=== PATIENT | male | born 1960 | race Caucasian/White ===

== ENCOUNTER → 2016-09-01 | Outpatient (CLI) | payer MEDICARE ==
[~2016-09-01] MED LIST: AMOX1TAB64 PO; CALC-141 PO; CEFD300C37 PO; EFFEXOR; GABA-827 PO; GABAPENT; GABAPENTIN CREAM; INSU100C SQ-INSULIN; INSU100I18 SQ; INSU100V8 SQ; INSULINS; LACT20SO13 PO; LEDI1TAB PO; LISI-170 PO; LISINOPRIL/HCTZ; MORP15TA PO; OXYC5CAP4 PO; POTA10TA PO; RIFA550T PO; SPIR25TA3 PO; VENL150C PO
== END | disposition home or self-care (01) ==
LOC: WOUND 14:05
PROVIDERS: ATTEND Internal Medicine
DX: E11.621 Type 2 diabetes mellitus with foot ulcer (principal); L97.511 Non-pressure chronic ulcer of other part of right foot limited to breakdown of skin; I10 Essential (primary) hypertension; E66.9 Obesity, unspecified; F17.210 Nicotine dependence, cigarettes, uncomplicated
CPT/HCPCS: 29581; 97597; G0463; WOU0463

== ENCOUNTER → 2016-09-08 | Outpatient (CLI) | payer MEDICARE | END | disposition home or self-care (01) | LOC: WOUND 14:30 | PROVIDERS: ATTEND Internal Medicine | DX: E11.621 Type 2 diabetes mellitus with foot ulcer (principal); L97.511 Non-pressure chronic ulcer of other part of right foot limited to breakdown of skin; I10 Essential (primary) hypertension; E66.9 Obesity, unspecified; E11.40 Type 2 diabetes mellitus with diabetic neuropathy, unspecified; Z68.41 Body mass index [BMI] 40.0-44.9, adult; F17.210 Nicotine dependence, cigarettes, uncomplicated; Z86.19 Personal history of other infectious and parasitic diseases; Z79.4 Long term (current) use of insulin | CPT/HCPCS: 29581; 97597 ==

== ENCOUNTER → 2016-09-15 | Outpatient (CLI) | payer MEDICARE | END | disposition home or self-care (01) | LOC: WOUND 14:08 | PROVIDERS: ATTEND Internal Medicine | DX: E11.621 Type 2 diabetes mellitus with foot ulcer (principal); L97.511 Non-pressure chronic ulcer of other part of right foot limited to breakdown of skin; E11.40 Type 2 diabetes mellitus with diabetic neuropathy, unspecified; I51.7 Cardiomegaly; B19.20 Unspecified viral hepatitis C without hepatic coma; I10 Essential (primary) hypertension; E66.9 Obesity, unspecified; F17.210 Nicotine dependence, cigarettes, uncomplicated; Z96.652 Presence of left artificial knee joint; Z79.4 Long term (current) use of insulin; Z68.41 Body mass index [BMI] 40.0-44.9, adult | CPT/HCPCS: 29581; 97597 ==

== ENCOUNTER → 2016-09-23 | Outpatient (CLI) | payer MEDICARE | END | disposition home or self-care (01) | LOC: WOUND 15:30 | PROVIDERS: ATTEND Podiatrist Foot & Ankle Surgery | DX: E11.621 Type 2 diabetes mellitus with foot ulcer (principal); L97.511 Non-pressure chronic ulcer of other part of right foot limited to breakdown of skin; E66.9 Obesity, unspecified; Z68.41 Body mass index [BMI] 40.0-44.9, adult; B19.20 Unspecified viral hepatitis C without hepatic coma; I10 Essential (primary) hypertension; Z79.4 Long term (current) use of insulin; F17.210 Nicotine dependence, cigarettes, uncomplicated; Z96.652 Presence of left artificial knee joint | CPT/HCPCS: 29581; 97597 ==

== ENCOUNTER → 2016-09-30 | Outpatient (CLI) | payer MEDICARE | END | disposition home or self-care (01) | LOC: WOUND 15:00 | PROVIDERS: ATTEND Podiatrist Foot & Ankle Surgery | DX: E11.621 Type 2 diabetes mellitus with foot ulcer (principal); L97.511 Non-pressure chronic ulcer of other part of right foot limited to breakdown of skin; B19.20 Unspecified viral hepatitis C without hepatic coma; I10 Essential (primary) hypertension; G89.29 Other chronic pain; E66.9 Obesity, unspecified; E11.40 Type 2 diabetes mellitus with diabetic neuropathy, unspecified; Z68.41 Body mass index [BMI] 40.0-44.9, adult; F17.200 Nicotine dependence, unspecified, uncomplicated; Z96.652 Presence of left artificial knee joint; Z79.4 Long term (current) use of insulin | CPT/HCPCS: 15275; 29581; Q4106 ==

== ENCOUNTER → 2016-10-07 | Outpatient (CLI) | payer MEDICARE | END | disposition home or self-care (01) | LOC: WOUND 11:30 | PROVIDERS: ATTEND Podiatrist Foot & Ankle Surgery | DX: E11.621 Type 2 diabetes mellitus with foot ulcer (principal); L97.511 Non-pressure chronic ulcer of other part of right foot limited to breakdown of skin; B19.20 Unspecified viral hepatitis C without hepatic coma; I10 Essential (primary) hypertension; E66.9 Obesity, unspecified; E11.40 Type 2 diabetes mellitus with diabetic neuropathy, unspecified; G89.29 Other chronic pain; Z68.41 Body mass index [BMI] 40.0-44.9, adult; F17.200 Nicotine dependence, unspecified, uncomplicated; Z96.652 Presence of left artificial knee joint; Z79.4 Long term (current) use of insulin | CPT/HCPCS: 15275; 29581; Q4106 ==

== ENCOUNTER → 2016-10-14 | Outpatient (CLI) | payer MEDICARE | END | disposition home or self-care (01) | LOC: WOUND 13:27 | PROVIDERS: ATTEND Podiatrist Foot & Ankle Surgery | DX: E11.621 Type 2 diabetes mellitus with foot ulcer (principal); L97.511 Non-pressure chronic ulcer of other part of right foot limited to breakdown of skin; I10 Essential (primary) hypertension; E66.9 Obesity, unspecified; E11.40 Type 2 diabetes mellitus with diabetic neuropathy, unspecified; F17.210 Nicotine dependence, cigarettes, uncomplicated; Z68.41 Body mass index [BMI] 40.0-44.9, adult; Z79.4 Long term (current) use of insulin; Z86.19 Personal history of other infectious and parasitic diseases; Z96.652 Presence of left artificial knee joint | CPT/HCPCS: 15271; Q4106; 29581 ==

== ENCOUNTER → 2016-10-19 | Outpatient (CLI) | payer MEDICARE | END | disposition home or self-care (01) | LOC: WOUND 11:49 | PROVIDERS: ATTEND Internal Medicine | DX: E11.621 Type 2 diabetes mellitus with foot ulcer (principal); L97.511 Non-pressure chronic ulcer of other part of right foot limited to breakdown of skin; I10 Essential (primary) hypertension; B19.20 Unspecified viral hepatitis C without hepatic coma; E66.9 Obesity, unspecified; G89.29 Other chronic pain; E11.40 Type 2 diabetes mellitus with diabetic neuropathy, unspecified; F17.200 Nicotine dependence, unspecified, uncomplicated; Z96.652 Presence of left artificial knee joint; Z68.41 Body mass index [BMI] 40.0-44.9, adult; Z79.4 Long term (current) use of insulin | CPT/HCPCS: 29581 ==

== ENCOUNTER → 2016-10-21 | Outpatient (CLI) | payer MEDICARE | END | disposition home or self-care (01) | LOC: WOUND 13:46 | PROVIDERS: ATTEND Podiatrist Foot & Ankle Surgery | DX: E11.621 Type 2 diabetes mellitus with foot ulcer (principal); L97.511 Non-pressure chronic ulcer of other part of right foot limited to breakdown of skin; I10 Essential (primary) hypertension; E66.9 Obesity, unspecified; E11.40 Type 2 diabetes mellitus with diabetic neuropathy, unspecified; F17.210 Nicotine dependence, cigarettes, uncomplicated; Z96.652 Presence of left artificial knee joint; Z68.41 Body mass index [BMI] 40.0-44.9, adult; Z86.19 Personal history of other infectious and parasitic diseases | CPT/HCPCS: 15275; 29581; Q4106 ==

== ENCOUNTER → 2016-10-28 | Outpatient (CLI) | payer MEDICARE ==
[~2016-10-28] MED LIST changes: +OXYC5CAP2 PO; -OXYC5CAP4 PO; -RIFA550T PO; +RIFA550T4 PO
== END | disposition home or self-care (01) ==
LOC: WOUND 14:37
PROVIDERS: ATTEND Podiatrist Foot & Ankle Surgery
DX: E11.621 Type 2 diabetes mellitus with foot ulcer (principal); L97.511 Non-pressure chronic ulcer of other part of right foot limited to breakdown of skin; I10 Essential (primary) hypertension; E66.9 Obesity, unspecified; E11.40 Type 2 diabetes mellitus with diabetic neuropathy, unspecified; Z86.19 Personal history of other infectious and parasitic diseases; F17.210 Nicotine dependence, cigarettes, uncomplicated; Z68.41 Body mass index [BMI] 40.0-44.9, adult; Z79.4 Long term (current) use of insulin
CPT/HCPCS: 15271; Q4106; 29581

== ENCOUNTER → 2016-11-04 | Outpatient (CLI) | payer MEDICARE | END | disposition home or self-care (01) | LOC: WOUND 14:39 | PROVIDERS: ATTEND Podiatrist Foot & Ankle Surgery | DX: E11.621 Type 2 diabetes mellitus with foot ulcer (principal); L97.511 Non-pressure chronic ulcer of other part of right foot limited to breakdown of skin; I10 Essential (primary) hypertension; E11.40 Type 2 diabetes mellitus with diabetic neuropathy, unspecified; E66.9 Obesity, unspecified; F17.210 Nicotine dependence, cigarettes, uncomplicated; Z68.41 Body mass index [BMI] 40.0-44.9, adult; Z86.19 Personal history of other infectious and parasitic diseases; Z79.4 Long term (current) use of insulin | CPT/HCPCS: 97597 ==

== ENCOUNTER → 2016-11-11 | Outpatient (CLI) | payer MEDICARE | END | disposition home or self-care (01) | LOC: WOUND 13:57 | PROVIDERS: ATTEND Podiatrist Foot & Ankle Surgery | DX: E11.621 Type 2 diabetes mellitus with foot ulcer (principal); L97.511 Non-pressure chronic ulcer of other part of right foot limited to breakdown of skin; L03.116 Cellulitis of left lower limb; I10 Essential (primary) hypertension; E11.40 Type 2 diabetes mellitus with diabetic neuropathy, unspecified; E66.9 Obesity, unspecified; Z86.19 Personal history of other infectious and parasitic diseases; Z68.41 Body mass index [BMI] 40.0-44.9, adult; F17.210 Nicotine dependence, cigarettes, uncomplicated; Z79.4 Long term (current) use of insulin | CPT/HCPCS: 11043 ==

== ENCOUNTER → 2016-11-18 | Outpatient (CLI) | payer MEDICARE | END | disposition home or self-care (01) | LOC: WOUND 13:16 | PROVIDERS: ATTEND Podiatrist Foot & Ankle Surgery | DX: E11.621 Type 2 diabetes mellitus with foot ulcer (principal); L97.511 Non-pressure chronic ulcer of other part of right foot limited to breakdown of skin; I10 Essential (primary) hypertension; E66.9 Obesity, unspecified; E11.40 Type 2 diabetes mellitus with diabetic neuropathy, unspecified; Z96.652 Presence of left artificial knee joint; B19.20 Unspecified viral hepatitis C without hepatic coma; G89.29 Other chronic pain; Z68.41 Body mass index [BMI] 40.0-44.9, adult; Z79.4 Long term (current) use of insulin; F17.210 Nicotine dependence, cigarettes, uncomplicated | CPT/HCPCS: 15275; Q4106 ==

== ENCOUNTER → 2016-11-25 | Outpatient (CLI) | payer MEDICARE | END | disposition home or self-care (01) | LOC: WOUND 14:08 | PROVIDERS: ATTEND Podiatrist Foot & Ankle Surgery | DX: E11.621 Type 2 diabetes mellitus with foot ulcer (principal); L97.511 Non-pressure chronic ulcer of other part of right foot limited to breakdown of skin; L03.116 Cellulitis of left lower limb; I10 Essential (primary) hypertension; E66.9 Obesity, unspecified; E11.40 Type 2 diabetes mellitus with diabetic neuropathy, unspecified; F17.210 Nicotine dependence, cigarettes, uncomplicated; Z86.19 Personal history of other infectious and parasitic diseases; Z68.41 Body mass index [BMI] 40.0-44.9, adult; Z79.4 Long term (current) use of insulin | CPT/HCPCS: 15275; Q4106 ==

== ENCOUNTER → 2016-12-02 | Outpatient (CLI) | payer MEDICARE | END | disposition home or self-care (01) | LOC: WOUND 14:58 | PROVIDERS: ATTEND Podiatrist Foot & Ankle Surgery | DX: E11.621 Type 2 diabetes mellitus with foot ulcer (principal); L97.511 Non-pressure chronic ulcer of other part of right foot limited to breakdown of skin; L97.521 Non-pressure chronic ulcer of other part of left foot limited to breakdown of skin; I10 Essential (primary) hypertension; E66.9 Obesity, unspecified; E11.40 Type 2 diabetes mellitus with diabetic neuropathy, unspecified; F17.210 Nicotine dependence, cigarettes, uncomplicated; Z68.41 Body mass index [BMI] 40.0-44.9, adult; Z79.4 Long term (current) use of insulin; Z86.19 Personal history of other infectious and parasitic diseases; Z96.652 Presence of left artificial knee joint | CPT/HCPCS: 15275; 29581; Q4106 ==

== ENCOUNTER → 2016-12-09 | Outpatient (CLI) | payer MEDICARE | END | disposition home or self-care (01) | LOC: WOUND 14:07 | PROVIDERS: ATTEND Podiatrist Foot & Ankle Surgery | DX: E11.621 Type 2 diabetes mellitus with foot ulcer (principal); L97.511 Non-pressure chronic ulcer of other part of right foot limited to breakdown of skin; I10 Essential (primary) hypertension; E66.9 Obesity, unspecified; E11.40 Type 2 diabetes mellitus with diabetic neuropathy, unspecified; F17.210 Nicotine dependence, cigarettes, uncomplicated; Z86.19 Personal history of other infectious and parasitic diseases; Z79.4 Long term (current) use of insulin; Z68.41 Body mass index [BMI] 40.0-44.9, adult | CPT/HCPCS: 11042; 29581 ==

== ENCOUNTER → 2016-12-16 | Outpatient (CLI) | payer MEDICARE | END | disposition home or self-care (01) | LOC: WOUND 14:15 | PROVIDERS: ATTEND Podiatrist Foot & Ankle Surgery | DX: E11.621 Type 2 diabetes mellitus with foot ulcer (principal); L97.511 Non-pressure chronic ulcer of other part of right foot limited to breakdown of skin; I10 Essential (primary) hypertension; E11.40 Type 2 diabetes mellitus with diabetic neuropathy, unspecified; E66.9 Obesity, unspecified; Z68.41 Body mass index [BMI] 40.0-44.9, adult; F17.210 Nicotine dependence, cigarettes, uncomplicated; Z86.19 Personal history of other infectious and parasitic diseases; Z79.4 Long term (current) use of insulin | CPT/HCPCS: 11042 ==

== ENCOUNTER → 2016-12-23 | Outpatient (CLI) | payer MEDICARE ==
[~2016-12-23] MED LIST changes: +LIDO5CRE19 TP; +SULF1TAB24 PO
== END | disposition home or self-care (01) ==
LOC: WOUND 15:21
PROVIDERS: ATTEND Podiatrist Foot & Ankle Surgery
DX: E11.621 Type 2 diabetes mellitus with foot ulcer (principal); L97.511 Non-pressure chronic ulcer of other part of right foot limited to breakdown of skin; E11.69 Type 2 diabetes mellitus with other specified complication; M86.171 Other acute osteomyelitis, right ankle and foot; Z86.718 Personal history of other venous thrombosis and embolism; I10 Essential (primary) hypertension; Z86.73 Personal history of transient ischemic attack (TIA), and cerebral infarction without residual deficits; E66.01 Morbid (severe) obesity due to excess calories; F17.210 Nicotine dependence, cigarettes, uncomplicated; G47.33 Obstructive sleep apnea (adult) (pediatric); Z68.41 Body mass index [BMI] 40.0-44.9, adult; Z96.652 Presence of left artificial knee joint
CPT/HCPCS: 11043; G0463; WOU0463

== ENCOUNTER → 2016-12-30 | Outpatient (CLI) | payer MEDICARE | END | disposition home or self-care (01) | LOC: WOUND 14:57 | PROVIDERS: ATTEND Podiatrist Foot & Ankle Surgery | DX: E11.621 Type 2 diabetes mellitus with foot ulcer (principal); L97.511 Non-pressure chronic ulcer of other part of right foot limited to breakdown of skin; I10 Essential (primary) hypertension; E66.01 Morbid (severe) obesity due to excess calories; F17.210 Nicotine dependence, cigarettes, uncomplicated; G47.33 Obstructive sleep apnea (adult) (pediatric); Z86.718 Personal history of other venous thrombosis and embolism; Z86.73 Personal history of transient ischemic attack (TIA), and cerebral infarction without residual deficits; Z68.41 Body mass index [BMI] 40.0-44.9, adult | CPT/HCPCS: 11043 ==

== ENCOUNTER → 2017-01-06 | Outpatient (CLI) | payer MEDICARE | END | disposition home or self-care (01) | LOC: WOUND 14:58 | PROVIDERS: ATTEND Internal Medicine Cardiovascular Disease | DX: E11.621 Type 2 diabetes mellitus with foot ulcer (principal); L97.511 Non-pressure chronic ulcer of other part of right foot limited to breakdown of skin; E11.69 Type 2 diabetes mellitus with other specified complication; M86.171 Other acute osteomyelitis, right ankle and foot; Z86.73 Personal history of transient ischemic attack (TIA), and cerebral infarction without residual deficits; E66.9 Obesity, unspecified; Z86.718 Personal history of other venous thrombosis and embolism; Z68.41 Body mass index [BMI] 40.0-44.9, adult; Z79.4 Long term (current) use of insulin | CPT/HCPCS: G0463; WOU0463 ==

== ENCOUNTER → 2017-01-13 | Outpatient (CLI) | payer MEDICARE | END | disposition home or self-care (01) | LOC: WOUND 15:19 | PROVIDERS: ATTEND Podiatrist Foot & Ankle Surgery | DX: E11.621 Type 2 diabetes mellitus with foot ulcer (principal); L97.511 Non-pressure chronic ulcer of other part of right foot limited to breakdown of skin; Z86.718 Personal history of other venous thrombosis and embolism; Z86.73 Personal history of transient ischemic attack (TIA), and cerebral infarction without residual deficits; I10 Essential (primary) hypertension; E66.01 Morbid (severe) obesity due to excess calories; Z68.41 Body mass index [BMI] 40.0-44.9, adult; Z79.4 Long term (current) use of insulin; F17.200 Nicotine dependence, unspecified, uncomplicated | CPT/HCPCS: 11044 ==

== ENCOUNTER 2017-01-27 22:35 | Inpatient (IN) | payer MEDICARE ==
[~2017-01-27] VITALS: Ht 177.8 cm; Wt 133.1 kg
[2017-01-27] MEDS ORDERED: VANCOMYCIN 2,300 MG in SODIUM CHLORIDE 0.9% 500 ML IV ONE (23:45)
[2017-01-28] MEDS ORDERED: SODIUM CHLORIDE FLUSH 10ML SYR IVF ONE
[2017-01-28] MEDS ORDERED: ONDANSETRON 2MG/ML, 2ML IVPush ONE
[2017-01-28] MEDS ORDERED: SODIUM CHLORIDE 0.9% 1,000ML IVBOLUS ONE
[2017-01-28] MEDS ORDERED: MORPHINE SULFATE 4 MG/ML, 1ML IVPush PRN
[2017-01-28] MEDS ORDERED: AMPICILLIN/SULBACTAM 3 GM in SODIUM CHLORIDE 0.9% 100 ML IVPB ONE
[2017-01-28] MEDS ORDERED: morphine SULFATE 10 MG/ML, 1ML ONE (00:08)
[2017-01-28] MEDS ORDERED: ONDANSETRON 2MG/ML, 2ML ONE (00:08)
[2017-01-28 00:34] LABS: HEMATOCRIT 39.5 % (39.2-51.8); HEMOGLOBIN 13.3 g/dL (13.7-18.0); WHITE BLOOD COUNT 8.7 x10^3/uL (3.4-10)
[2017-01-28 00:40] LABS: BLOOD UREA NITROGEN 24 mg/dL (7-18)
[2017-01-28] MEDS ORDERED: NS + 20MEQ KCL 1,000 ML IV SCH (00:55)
[2017-01-28] MEDS ORDERED: VANCOMYCIN PER PHARMACY MC PRN ×2 (01:00)
[2017-01-28] MEDS ORDERED: GLUCAGON 1 MG IM PRN (01:00)
[2017-01-28] MEDS ORDERED: ACETAMINOPHEN 325 MG TABLET PO PRN (01:00)
[2017-01-28] MEDS ORDERED: DEXTROSE 50%, 50ML SYRINGE IVPush PRN (01:00)
[2017-01-28] MEDS ORDERED: DEXTROSE 4 GM TAB.CHEW PO PRN (01:00)
[2017-01-28] MEDS ORDERED: DOCUSATE 100 MG CAPSULE PO PRN (01:00)
[2017-01-28] MEDS: NICOTINE 7 MG/24 HR PATCH.TD24 TD SCH (01:00)
[2017-01-28] MEDS ORDERED: POLYETHYLENE GLYCOL 17 GM PACKET PO PRN (01:00)
[2017-01-28] MEDS: INSULIN DETEMIR 100 UNITS/ML, PEN SQ-INSULIN SCH ×2 (01:00→21:00)
[2017-01-28] MEDS ORDERED: ONDANSETRON 2MG/ML, 2ML IVPush PRN (01:00)
[2017-01-28 01:35] VITALS: BP 106/70
[2017-01-28] MEDS ORDERED: PHARMACOKINETIC MONITORING MC PRN (02:00)
[2017-01-28] MEDS ORDERED: PHARMACOKINETIC CONSULTATION MC ONE (02:00)
[2017-01-28] MEDS: morphine SULFATE 10 MG/ML, 1ML IVPush PRN ×6 (02:23→20:45)
[2017-01-28 03:05] VITALS: BP 106/70
[2017-01-28] MEDS: AMPICILLIN/SULBACTAM 3 GM in SODIUM CHLORIDE 0.9% 100 ML IV SCH ×4 (04:12→23:09)
[2017-01-28] MEDS: OXYcodone IR 5MG TABLET PO PRN ×2 (05:08→18:32)
[2017-01-28 07:20] VITALS: BP 105/68
[2017-01-28] MEDS: VENLAFAXINE 75 MG CAP ER PO SCH (07:44)
[2017-01-28] MEDS: RIFAXIMIN 550 MG TABLET PO SCH ×2 (07:44→23:09)
[2017-01-28] MEDS: LACTULOSE 20 GM/30 ML UDC PO SCH ×3 (07:44→23:09)
[2017-01-28] MEDS: LISINOPRIL 20 MG TABLET PO SCH ×2 (07:44→23:10)
[2017-01-28] MEDS: ENOXAPARIN 40 MG/0.4 ML SQ SCH (07:45)
[2017-01-28] MEDS: SENNA/DOCUSATE TABLET PO SCH (07:46)
[2017-01-28] MEDS: SODIUM CHLORIDE FLUSH 10ML SYR IVF SCH ×2 (07:46→21:00)
[2017-01-28] MEDS ORDERED: POTASSIUM CHLORIDE 10 MEQ TABLET.ER PO SCH (09:00)
[2017-01-28] MEDS ORDERED: PNEUMOCOCCAL 23 VACCINE IM-VACC ONE (09:00)
[2017-01-28] MEDS ORDERED: SPIRONOLACTONE 25 MG TABLET PO SCH (09:00)
[2017-01-28] MEDS: VANCOMYCIN 2,000 MG in SODIUM CHLORIDE 0.9% 500 ML IV SCH (13:23)
[2017-01-28 13:42] VITALS: BP 116/66
[2017-01-28] MEDS: SODIUM CHLORIDE 0.9% 1,000 ML IV SCH (17:38)
[2017-01-28 18:55] VITALS: BP 106/68
[2017-01-28] MEDS: GABAPENTIN 400 MG CAPSULE PO SCH (23:09)
[2017-01-29] MEDS: morphine SULFATE 10 MG/ML, 1ML IVPush PRN ×7 (00:21→23:54)
[2017-01-29 00:35] VITALS: BP_SYST 114; BP_SYST 96; BP_DIAS 60; BP_DIAS 74
[2017-01-29] MEDS: NICOTINE 7 MG/24 HR PATCH.TD24 TD SCH ×2 (01:00→23:54)
[2017-01-29] MEDS: VANCOMYCIN 2,000 MG in SODIUM CHLORIDE 0.9% 500 ML IV SCH ×3 (01:41→21:49)
[2017-01-29] MEDS: AMPICILLIN/SULBACTAM 3 GM in SODIUM CHLORIDE 0.9% 100 ML IV SCH ×4 (04:11→23:53)
[2017-01-29 05:27] LABS: HEMATOCRIT 36.5 % (39.2-51.8); HEMOGLOBIN 12.3 g/dL (13.7-18.0); WHITE BLOOD COUNT 6.9 x10^3/uL (3.4-10)
[2017-01-29 05:34] LABS: BLOOD UREA NITROGEN 19 mg/dL (7-18)
[2017-01-29] MEDS: INSULIN ASPART 100 UNITS/ML, PEN SQ-INSULIN SCH ×4 (07:00→21:00)
[2017-01-29] MEDS: SENNA/DOCUSATE TABLET PO SCH (07:43)
[2017-01-29] MEDS: LACTULOSE 20 GM/30 ML UDC PO SCH ×3 (07:43→21:51)
[2017-01-29] MEDS: VENLAFAXINE 75 MG CAP ER PO SCH (07:43)
[2017-01-29] MEDS: LISINOPRIL 20 MG TABLET PO SCH ×2 (07:43→21:49)
[2017-01-29] MEDS: SODIUM CHLORIDE FLUSH 10ML SYR IVF SCH ×2 (07:44→21:52)
[2017-01-29] MEDS: ENOXAPARIN 40 MG/0.4 ML SQ SCH (07:44)
[2017-01-29] MEDS: RIFAXIMIN 550 MG TABLET PO SCH ×2 (07:44→21:49)
[2017-01-29 07:57] VITALS: BP 104/69
[2017-01-29] MEDS ORDERED: MIDAZOLAM 1 MG/ML, 2ML ONE (08:10)
[2017-01-29] MEDS ORDERED: FENTANYL PF 100 MCG/2ML ONE (08:10)
[2017-01-29] MEDS ORDERED: PHENYLEPHRINE 10 MG/ML ONE (08:43)
[2017-01-29] MEDS ORDERED: ONDANSETRON 2MG/ML, 2ML ONE (08:43)
[2017-01-29] MEDS ORDERED: PROPOFOL 10 MG/ML, 20ML ONE (08:43)
[2017-01-29] MEDS ORDERED: ACETAMINOPHEN 325 MG TABLET PO PRN ×3 (09:30→19:00)
[2017-01-29] MEDS ORDERED: PROMETHAZINE 25 MG/ML, 1ML IV PRN (09:30)
[2017-01-29] MEDS ORDERED: HYDROmorphone 1 MG/ML, 1ML IV PRN (09:30)
[2017-01-29] MEDS ORDERED: FENTANYL PF 100 MCG/2ML IV PRN (09:30)
[2017-01-29] MEDS ORDERED: OXYcodone 5 MG/5 ML ORAL.SOL UDC PO PRN (09:30)
[2017-01-29] MEDS ORDERED: DEXTROSE 5% 0 ML ONE (09:53)
[2017-01-29] MEDS ORDERED: DEXTROSE 50%, 50ML SYRINGE ONE (09:56)
[2017-01-29] MEDS: SODIUM CHLORIDE 0.9% 1,000 ML IV SCH ×2 (10:00→23:54)
[2017-01-29] MEDS ORDERED: OXYcodone 5 MG/5 ML ORAL.SOL UDC ONE (10:23)
[2017-01-29 13:52] VITALS: BP 112/66
[2017-01-29] MEDS: OXYcodone IR 5MG TABLET PO PRN ×2 (16:31→21:49)
[2017-01-29] MEDS ORDERED: DEXTROSE 50%, 50ML SYRINGE IVPush PRN ×2 (19:00)
[2017-01-29] MEDS ORDERED: POLYETHYLENE GLYCOL 17 GM PACKET PO PRN ×2 (19:00)
[2017-01-29] MEDS ORDERED: VANCOMYCIN PER PHARMACY MC PRN ×2 (19:00)
[2017-01-29] MEDS ORDERED: DEXTROSE 4 GM TAB.CHEW PO PRN (19:00)
[2017-01-29] MEDS ORDERED: DOCUSATE 100 MG CAPSULE PO PRN ×2 (19:00)
[2017-01-29] MEDS ORDERED: PHARMACOKINETIC MONITORING MC PRN ×2 (19:00)
[2017-01-29] MEDS ORDERED: ONDANSETRON 2MG/ML, 2ML IVPush PRN ×2 (19:00)
[2017-01-29] MEDS ORDERED: GLUCAGON 1 MG IM PRN ×2 (19:00)
[2017-01-29 19:58] VITALS: BP 109/52
[2017-01-29] MEDS ORDERED: SODIUM CHLORIDE FLUSH 10ML SYR IVF SCH (21:00)
[2017-01-29] MEDS: GABAPENTIN 400 MG CAPSULE PO SCH (21:49)
[2017-01-29] MEDS: INSULIN DETEMIR 100 UNITS/ML, PEN SQ-INSULIN SCH (22:37)
[2017-01-30 01:12] VITALS: BP 111/51
[2017-01-30] MEDS: AMPICILLIN/SULBACTAM 3 GM in SODIUM CHLORIDE 0.9% 100 ML IV SCH ×3 (05:45→18:12)
[2017-01-30] MEDS: morphine SULFATE 10 MG/ML, 1ML IVPush PRN ×4 (05:46→22:51)
[2017-01-30] MEDS: INSULIN ASPART 100 UNITS/ML, PEN SQ-INSULIN SCH ×4 (07:00→21:00)
[2017-01-30 07:20] VITALS: BP 104/62
[2017-01-30] MEDS: LACTULOSE 20 GM/30 ML UDC PO SCH ×3 (08:29→21:00)
[2017-01-30] MEDS: RIFAXIMIN 550 MG TABLET PO SCH (08:29)
[2017-01-30] MEDS: SODIUM CHLORIDE FLUSH 10ML SYR IVF SCH ×2 (08:29→21:00)
[2017-01-30] MEDS: VENLAFAXINE 75 MG CAP ER PO SCH (08:30)
[2017-01-30] MEDS: LISINOPRIL 20 MG TABLET PO SCH ×2 (08:30→21:00)
[2017-01-30] MEDS: ENOXAPARIN 40 MG/0.4 ML SQ SCH (08:30)
[2017-01-30] MEDS: SENNA/DOCUSATE TABLET PO SCH (08:33)
[2017-01-30] MEDS: INSULIN DETEMIR 100 UNITS/ML, PEN SQ-INSULIN SCH ×2 (11:16→22:30)
[2017-01-30 11:57] LABS: ASPARTATE AMINO TRANSFERASE 44 U/L (15-37); BLOOD UREA NITROGEN 13 mg/dL (7-18)
[2017-01-30 12:06] LABS: HEMATOCRIT 35.3 % (39.2-51.8); HEMOGLOBIN 11.8 g/dL (13.7-18.0); WHITE BLOOD COUNT 6.9 x10^3/uL (3.4-10)
[2017-01-30] MEDS: OXYcodone IR 5MG TABLET PO PRN ×2 (14:27→23:19)
[2017-01-30 14:29] VITALS: BP 96/53
[2017-01-30] MEDS: VANCOMYCIN 2,000 MG in SODIUM CHLORIDE 0.9% 500 ML IV SCH (15:48)
[2017-01-30 19:44] VITALS: BP 94/56
[2017-01-30] MEDS: GABAPENTIN 400 MG CAPSULE PO SCH (21:00)
[2017-01-31 00:30] VITALS: BP 101/58
[2017-01-31] MEDS: AMPICILLIN/SULBACTAM 3 GM in SODIUM CHLORIDE 0.9% 100 ML IV SCH ×4 (00:54→19:55)
[2017-01-31] MEDS: NICOTINE 7 MG/24 HR PATCH.TD24 TD SCH (00:56)
[2017-01-31] MEDS: morphine SULFATE 10 MG/ML, 1ML IVPush PRN ×7 (01:52→23:37)
[2017-01-31] MEDS: OXYcodone IR 5MG TABLET PO PRN ×2 (05:00→17:33)
[2017-01-31 05:24] LABS: BLOOD UREA NITROGEN 15 mg/dL (7-18)
[2017-01-31] MEDS: INSULIN ASPART 100 UNITS/ML, PEN SQ-INSULIN SCH ×4 (07:00→20:19)
[2017-01-31 07:30] VITALS: BP 105/66
[2017-01-31] MEDS: VENLAFAXINE 75 MG CAP ER PO SCH (09:28)
[2017-01-31] MEDS: LISINOPRIL 20 MG TABLET PO SCH ×2 (09:29→19:55)
[2017-01-31] MEDS: LACTULOSE 20 GM/30 ML UDC PO SCH ×3 (09:29→19:55)
[2017-01-31] MEDS: SODIUM CHLORIDE FLUSH 10ML SYR IVF SCH ×2 (09:30→19:56)
[2017-01-31] MEDS: SENNA/DOCUSATE TABLET PO SCH (09:30)
[2017-01-31] MEDS: ENOXAPARIN 40 MG/0.4 ML SQ SCH (09:30)
[2017-01-31] MEDS: VANCOMYCIN 2,000 MG in SODIUM CHLORIDE 0.9% 500 ML IV SCH (10:25)
[2017-01-31] MEDS: INSULIN DETEMIR 100 UNITS/ML, PEN SQ-INSULIN SCH ×2 (10:44→20:20)
[2017-01-31 13:32] VITALS: BP 109/71
[2017-01-31 19:44] VITALS: BP 104/65
[2017-01-31] MEDS: GABAPENTIN 400 MG CAPSULE PO SCH (19:55)
[2017-02-01] MEDS: OXYcodone IR 5MG TABLET PO PRN ×4 (00:21→22:41)
[2017-02-01] MEDS: NICOTINE 7 MG/24 HR PATCH.TD24 TD SCH (01:00)
[2017-02-01 01:18] VITALS: BP 104/65
[2017-02-01] MEDS: AMPICILLIN/SULBACTAM 3 GM in SODIUM CHLORIDE 0.9% 100 ML IV SCH ×2 (01:57→08:10)
[2017-02-01] MEDS: morphine SULFATE 10 MG/ML, 1ML IVPush PRN ×6 (02:46→20:48)
[2017-02-01 03:49] LABS: BLOOD UREA NITROGEN 14 mg/dL (7-18)
[2017-02-01] MEDS ORDERED: VANCOMYCIN 2,000 MG in SODIUM CHLORIDE 0.9% 500 ML IV SCH (04:00)
[2017-02-01 04:10] LABS: HEMATOCRIT 34.4 % (39.2-51.8); HEMOGLOBIN 11.8 g/dL (13.7-18.0); WHITE BLOOD COUNT 5.3 x10^3/uL (3.4-10)
[2017-02-01] MEDS: INSULIN ASPART 100 UNITS/ML, PEN SQ-INSULIN SCH ×4 (07:00→20:49)
[2017-02-01 07:53] VITALS: BP 103/61
[2017-02-01] MEDS: VENLAFAXINE 75 MG CAP ER PO SCH (08:09)
[2017-02-01] MEDS: LISINOPRIL 20 MG TABLET PO SCH ×2 (08:09→20:52)
[2017-02-01] MEDS: LACTULOSE 20 GM/30 ML UDC PO SCH ×3 (08:09→20:51)
[2017-02-01] MEDS: SENNA/DOCUSATE TABLET PO SCH (08:09)
[2017-02-01] MEDS: ENOXAPARIN 40 MG/0.4 ML SQ SCH (08:10)
[2017-02-01] MEDS: SODIUM CHLORIDE FLUSH 10ML SYR IVF SCH ×2 (08:10→20:50)
[2017-02-01] MEDS: INSULIN DETEMIR 100 UNITS/ML, PEN SQ-INSULIN SCH ×2 (08:11→20:49)
[2017-02-01] MEDS: DAPTOMYCIN 750 MG in SODIUM CHLORIDE 0.9% 100 ML IVPB SCH (12:09)
[2017-02-01 13:30] VITALS: BP 118/71
[2017-02-01 19:25] VITALS: BP 98/57
[2017-02-01] MEDS: GABAPENTIN 400 MG CAPSULE PO SCH (20:50)
[2017-02-02] MEDS: NICOTINE 7 MG/24 HR PATCH.TD24 TD SCH (01:00)
[2017-02-02] MEDS: morphine SULFATE 10 MG/ML, 1ML IVPush PRN ×7 (01:12→22:58)
[2017-02-02 01:13] VITALS: BP 101/58
[2017-02-02 06:17] LABS: BLOOD UREA NITROGEN 12 mg/dL (7-18)
[2017-02-02 06:18] LABS: HEMATOCRIT 36.1 % (39.2-51.8); HEMOGLOBIN 12.2 g/dL (13.7-18.0); WHITE BLOOD COUNT 5.4 x10^3/uL (3.4-10)
[2017-02-02] MEDS: INSULIN ASPART 100 UNITS/ML, PEN SQ-INSULIN SCH ×4 (07:00→20:25)
[2017-02-02] MEDS: LISINOPRIL 20 MG TABLET PO SCH ×3 (08:08→20:19)
[2017-02-02] MEDS: SENNA/DOCUSATE TABLET PO SCH (08:10)
[2017-02-02] MEDS: ENOXAPARIN 40 MG/0.4 ML SQ SCH (08:11)
[2017-02-02] MEDS: VENLAFAXINE 75 MG CAP ER PO SCH (08:13)
[2017-02-02] MEDS: OXYcodone IR 5MG TABLET PO PRN ×4 (08:14→22:28)
[2017-02-02] MEDS: BUMETANIDE 1 MG TABLET PO SCH (08:15)
[2017-02-02] MEDS: LACTULOSE 20 GM/30 ML UDC PO SCH ×3 (08:17→20:15)
[2017-02-02] MEDS: INSULIN DETEMIR 100 UNITS/ML, PEN SQ-INSULIN SCH ×2 (08:19→20:24)
[2017-02-02 08:37] VITALS: BP 110/67
[2017-02-02] MEDS: SODIUM CHLORIDE FLUSH 10ML SYR IVF SCH ×2 (09:00→20:24)
[2017-02-02 12:44] VITALS: BP 107/68
[2017-02-02] MEDS: DAPTOMYCIN 750 MG in SODIUM CHLORIDE 0.9% 100 ML IVPB SCH (13:06)
[2017-02-02] MEDS: POTASSIUM CHLORIDE 10 MEQ TABLET.ER PO SCH (18:00)
[2017-02-02] MEDS: CALCIUM CARBONATE 500 MG TABLET PO SCH (18:17)
[2017-02-02 20:00] VITALS: BP 100/62
[2017-02-02] MEDS: GABAPENTIN 400 MG CAPSULE PO SCH (20:15)
[2017-02-03] MEDS: NICOTINE 7 MG/24 HR PATCH.TD24 TD SCH (01:00)
[2017-02-03 01:25] VITALS: BP 95/53
[2017-02-03] MEDS: morphine SULFATE 10 MG/ML, 1ML IVPush PRN ×7 (02:17→22:48)
[2017-02-03 05:46] LABS: HEMATOCRIT 34.9 % (39.2-51.8); HEMOGLOBIN 11.7 g/dL (13.7-18.0); WHITE BLOOD COUNT 5.7 x10^3/uL (3.4-10)
[2017-02-03 05:56] LABS: ASPARTATE AMINO TRANSFERASE 37 U/L (15-37); BLOOD UREA NITROGEN 13 mg/dL (7-18)
[2017-02-03] MEDS: INSULIN ASPART 100 UNITS/ML, PEN SQ-INSULIN SCH ×4 (07:00→22:47)
[2017-02-03 07:30] VITALS: BP 105/65
[2017-02-03] MEDS: POTASSIUM CHLORIDE 10 MEQ TABLET.ER PO SCH (08:00)
[2017-02-03] MEDS: SODIUM CHLORIDE FLUSH 10ML SYR IVF SCH ×2 (08:11→22:49)
[2017-02-03] MEDS: LACTULOSE 20 GM/30 ML UDC PO SCH ×3 (08:11→22:47)
[2017-02-03] MEDS: ENOXAPARIN 40 MG/0.4 ML SQ SCH (08:12)
[2017-02-03] MEDS: OXYcodone IR 5MG TABLET PO PRN ×3 (08:12→18:29)
[2017-02-03] MEDS: INSULIN DETEMIR 100 UNITS/ML, PEN SQ-INSULIN SCH ×2 (08:12→22:46)
[2017-02-03] MEDS: SENNA/DOCUSATE TABLET PO SCH (08:12)
[2017-02-03] MEDS: VENLAFAXINE 75 MG CAP ER PO SCH (08:13)
[2017-02-03] MEDS: CALCIUM CARBONATE 500 MG TABLET PO SCH (08:13)
[2017-02-03] MEDS: LISINOPRIL 20 MG TABLET PO SCH ×2 (08:13→22:49)
[2017-02-03] MEDS: BUMETANIDE 1 MG TABLET PO SCH (08:13)
[2017-02-03] MEDS: DAPTOMYCIN 750 MG in SODIUM CHLORIDE 0.9% 100 ML IVPB SCH (11:27)
[2017-02-03 14:06] VITALS: BP 100/61
[2017-02-03 19:23] VITALS: BP 103/65
[2017-02-03] MEDS: NYSTATIN CRM 15GM TP SCH (22:46)
[2017-02-03] MEDS: NYSTATIN 500,000 UNITS/5 ML UDC PO SCH (22:47)
[2017-02-03] MEDS: GABAPENTIN 400 MG CAPSULE PO SCH (22:48)
[2017-02-03] MEDS: SPIRONOLACTONE 25 MG TABLET PO SCH (22:49)
[2017-02-04] MEDS: NICOTINE 7 MG/24 HR PATCH.TD24 TD SCH (00:55)
[2017-02-04] MEDS: morphine SULFATE 10 MG/ML, 1ML IVPush PRN ×6 (02:53→23:55)
[2017-02-04 03:03] VITALS: BP 97/59
[2017-02-04] MEDS: NYSTATIN 500,000 UNITS/5 ML UDC PO SCH ×4 (05:20→20:10)
[2017-02-04 05:47] LABS: HEMATOCRIT 33.2 % (39.2-51.8); HEMOGLOBIN 11.4 g/dL (13.7-18.0); WHITE BLOOD COUNT 5.2 x10^3/uL (3.4-10)
[2017-02-04 06:02] LABS: BLOOD UREA NITROGEN 15 mg/dL (7-18)
[2017-02-04 07:19] VITALS: BP 100/63
[2017-02-04] MEDS: LISINOPRIL 20 MG TABLET PO SCH ×2 (08:01→20:15)
[2017-02-04] MEDS: CALCIUM CARBONATE 500 MG TABLET PO SCH (08:01)
[2017-02-04] MEDS: LACTULOSE 20 GM/30 ML UDC PO SCH ×3 (08:01→20:08)
[2017-02-04] MEDS: SPIRONOLACTONE 25 MG TABLET PO SCH ×2 (08:01→20:10)
[2017-02-04] MEDS: OXYcodone IR 5MG TABLET PO PRN ×2 (08:01→15:28)
[2017-02-04] MEDS: VENLAFAXINE 75 MG CAP ER PO SCH (08:01)
[2017-02-04] MEDS: ENOXAPARIN 40 MG/0.4 ML SQ SCH (08:02)
[2017-02-04] MEDS: INSULIN DETEMIR 100 UNITS/ML, PEN SQ-INSULIN SCH ×2 (08:02→20:11)
[2017-02-04] MEDS: INSULIN ASPART 100 UNITS/ML, PEN SQ-INSULIN SCH ×4 (08:03→20:12)
[2017-02-04] MEDS: SENNA/DOCUSATE TABLET PO SCH (08:03)
[2017-02-04] MEDS: NYSTATIN CRM 15GM TP SCH ×3 (08:03→20:12)
[2017-02-04] MEDS: SODIUM CHLORIDE FLUSH 10ML SYR IVF SCH ×2 (08:03→20:08)
[2017-02-04] MEDS: POTASSIUM CHLORIDE 10 MEQ TABLET.ER PO SCH (09:47)
[2017-02-04] MEDS: DAPTOMYCIN 750 MG in SODIUM CHLORIDE 0.9% 100 ML IVPB SCH (11:37)
[2017-02-04 14:00] VITALS: BP 103/64
[2017-02-04] MEDS ORDERED: FLU VACC QS2017-18 (36MOS+) UP/PF 0.5 ML IM-VACC ONE (15:00)
[2017-02-04 19:34] VITALS: BP 105/66
[2017-02-04] MEDS: GABAPENTIN 400 MG CAPSULE PO SCH (20:10)
[2017-02-05] MEDS ORDERED: HYDROcodone/APAP 10/325 MG TABLET PO PRN
[2017-02-05] MEDS: NICOTINE 7 MG/24 HR PATCH.TD24 TD SCH (00:56)
[2017-02-05 01:45] VITALS: BP 111/72
[2017-02-05] MEDS: OXYcodone IR 5MG TABLET PO PRN ×4 (01:49→23:37)
[2017-02-05] MEDS: morphine SULFATE 10 MG/ML, 1ML IVPush PRN ×6 (03:28→21:29)
[2017-02-05 05:02] LABS: BLOOD UREA NITROGEN 13 mg/dL (7-18)
[2017-02-05 05:08] LABS: HEMATOCRIT 34.3 % (39.2-51.8); HEMOGLOBIN 11.5 g/dL (13.7-18.0); WHITE BLOOD COUNT 5.6 x10^3/uL (3.4-10)
[2017-02-05] MEDS: NYSTATIN 500,000 UNITS/5 ML UDC PO SCH ×4 (06:31→21:27)
[2017-02-05 07:26] VITALS: BP 106/68
[2017-02-05] MEDS: INSULIN DETEMIR 100 UNITS/ML, PEN SQ-INSULIN SCH ×2 (09:18→21:28)
[2017-02-05] MEDS: SENNA/DOCUSATE TABLET PO SCH (09:19)
[2017-02-05] MEDS: ENOXAPARIN 40 MG/0.4 ML SQ SCH (09:19)
[2017-02-05] MEDS: LACTULOSE 20 GM/30 ML UDC PO SCH ×3 (09:19→21:29)
[2017-02-05] MEDS: SODIUM CHLORIDE FLUSH 10ML SYR IVF SCH ×2 (09:20→21:32)
[2017-02-05] MEDS: INSULIN ASPART 100 UNITS/ML, PEN SQ-INSULIN SCH ×4 (09:20→21:28)
[2017-02-05] MEDS: VENLAFAXINE 75 MG CAP ER PO SCH (09:20)
[2017-02-05] MEDS: LISINOPRIL 20 MG TABLET PO SCH (09:20)
[2017-02-05] MEDS: POTASSIUM CHLORIDE 10 MEQ TABLET.ER PO SCH (09:21)
[2017-02-05] MEDS: CALCIUM CARBONATE 500 MG TABLET PO SCH (09:21)
[2017-02-05] MEDS: SPIRONOLACTONE 25 MG TABLET PO SCH ×2 (09:21→21:27)
[2017-02-05] MEDS: DAPTOMYCIN 750 MG in SODIUM CHLORIDE 0.9% 100 ML IVPB SCH (12:10)
[2017-02-05] MEDS: NYSTATIN CRM 15GM TP SCH ×3 (12:12→21:29)
[2017-02-05 13:47] VITALS: BP 94/48
[2017-02-05 20:00] VITALS: BP 106/67
[2017-02-05] MEDS: GABAPENTIN 400 MG CAPSULE PO SCH (21:27)
[2017-02-06] MEDS: morphine SULFATE 10 MG/ML, 1ML IVPush PRN ×7 (00:29→23:06)
[2017-02-06] MEDS: NICOTINE 7 MG/24 HR PATCH.TD24 TD SCH (01:00)
[2017-02-06 02:00] VITALS: BP 114/73
[2017-02-06] MEDS: OXYcodone IR 5MG TABLET PO PRN ×2 (02:25→21:38)
[2017-02-06 05:17] LABS: BLOOD UREA NITROGEN 14 mg/dL (7-18)
[2017-02-06 05:21] LABS: HEMATOCRIT 32.9 % (39.2-51.8); HEMOGLOBIN 11.3 g/dL (13.7-18.0); WHITE BLOOD COUNT 5.5 x10^3/uL (3.4-10)
[2017-02-06] MEDS: NYSTATIN 500,000 UNITS/5 ML UDC PO SCH ×4 (05:48→21:11)
[2017-02-06 07:08] VITALS: BP 106/68
[2017-02-06] MEDS: INSULIN ASPART 100 UNITS/ML, PEN SQ-INSULIN SCH ×4 (07:57→21:30)
[2017-02-06] MEDS: LACTULOSE 20 GM/30 ML UDC PO SCH ×3 (08:20→22:31)
[2017-02-06] MEDS: LISINOPRIL 20 MG TABLET PO SCH (08:20)
[2017-02-06] MEDS: ENOXAPARIN 40 MG/0.4 ML SQ SCH (08:20)
[2017-02-06] MEDS: SENNA/DOCUSATE TABLET PO SCH (08:20)
[2017-02-06] MEDS: POTASSIUM CHLORIDE 10 MEQ TABLET.ER PO SCH (08:20)
[2017-02-06] MEDS: SPIRONOLACTONE 25 MG TABLET PO SCH ×2 (08:20→21:12)
[2017-02-06] MEDS: INSULIN DETEMIR 100 UNITS/ML, PEN SQ-INSULIN SCH ×2 (08:21→21:30)
[2017-02-06] MEDS: SODIUM CHLORIDE FLUSH 10ML SYR IVF SCH ×2 (09:00→21:30)
[2017-02-06] MEDS: NYSTATIN CRM 15GM TP SCH ×3 (09:00→22:31)
[2017-02-06] MEDS: CALCIUM CARBONATE 500 MG TABLET PO SCH (09:00)
[2017-02-06] MEDS: VENLAFAXINE 75 MG CAP ER PO SCH (12:03)
[2017-02-06] MEDS: DAPTOMYCIN 750 MG in SODIUM CHLORIDE 0.9% 100 ML IVPB SCH (12:03)
[2017-02-06 13:52] VITALS: BP 104/65
[2017-02-06 19:24] VITALS: BP 101/63
[2017-02-06] MEDS: GABAPENTIN 400 MG CAPSULE PO SCH (21:12)
[2017-02-06] MEDS: RIFAXIMIN 550 MG TABLET PO SCH (21:12)
[2017-02-07] MEDS: NICOTINE 7 MG/24 HR PATCH.TD24 TD SCH ×2 (01:00→19:59)
[2017-02-07 01:35] VITALS: BP 118/72
[2017-02-07] MEDS: morphine SULFATE 10 MG/ML, 1ML IVPush PRN ×6 (02:09→21:08)
[2017-02-07 04:44] LABS: ASPARTATE AMINO TRANSFERASE 30 U/L (15-37); BLOOD UREA NITROGEN 13 mg/dL (7-18)
[2017-02-07] MEDS: NYSTATIN 500,000 UNITS/5 ML UDC PO SCH ×4 (05:50→21:10)
[2017-02-07 06:54] VITALS: BP 104/69
[2017-02-07] MEDS: NYSTATIN CRM 15GM TP SCH ×3 (09:00→21:12)
[2017-02-07] MEDS: SENNA/DOCUSATE TABLET PO SCH (10:02)
[2017-02-07] MEDS: VENLAFAXINE 75 MG CAP ER PO SCH (10:02)
[2017-02-07] MEDS: RIFAXIMIN 550 MG TABLET PO SCH ×2 (10:02→21:10)
[2017-02-07] MEDS: SPIRONOLACTONE 25 MG TABLET PO SCH ×2 (10:02→21:10)
[2017-02-07] MEDS: LACTULOSE 20 GM/30 ML UDC PO SCH ×3 (10:03→21:10)
[2017-02-07] MEDS: SODIUM CHLORIDE FLUSH 10ML SYR IVF SCH ×2 (10:03→21:09)
[2017-02-07] MEDS: LISINOPRIL 20 MG TABLET PO SCH (10:03)
[2017-02-07] MEDS: ENOXAPARIN 40 MG/0.4 ML SQ SCH (10:03)
[2017-02-07] MEDS: CALCIUM CARBONATE 500 MG TABLET PO SCH (10:03)
[2017-02-07] MEDS: POTASSIUM CHLORIDE 10 MEQ TABLET.ER PO SCH (10:03)
[2017-02-07] MEDS: INSULIN ASPART 100 UNITS/ML, PEN SQ-INSULIN SCH ×4 (10:04→21:00)
[2017-02-07] MEDS: INSULIN DETEMIR 100 UNITS/ML, PEN SQ-INSULIN SCH ×2 (10:04→21:09)
[2017-02-07 12:34] VITALS: BP 103/73
[2017-02-07] MEDS: DAPTOMYCIN 750 MG in SODIUM CHLORIDE 0.9% 100 ML IVPB SCH (12:55)
[2017-02-07 19:43] VITALS: BP 99/61
[2017-02-07] MEDS: LIDOCAINE/PRILOCAINE CRM W/TEG 5GM TP PRN (21:09)
[2017-02-07] MEDS: GABAPENTIN 400 MG CAPSULE PO SCH (21:10)
[2017-02-07] MEDS: OXYcodone IR 5MG TABLET PO PRN ×2 (23:27)
[2017-02-08] MEDS: morphine SULFATE 10 MG/ML, 1ML IVPush PRN ×8 (00:02→21:37)
[2017-02-08 02:20] VITALS: BP 108/69
[2017-02-08] MEDS: NYSTATIN 500,000 UNITS/5 ML UDC PO SCH ×4 (05:20→21:37)
[2017-02-08 06:09] LABS: HEMATOCRIT 33.3 % (39.2-51.8); HEMOGLOBIN 11.5 g/dL (13.7-18.0); WHITE BLOOD COUNT 5.4 x10^3/uL (3.4-10)
[2017-02-08 06:19] LABS: ASPARTATE AMINO TRANSFERASE 33 U/L (15-37); BLOOD UREA NITROGEN 13 mg/dL (7-18)
[2017-02-08] MEDS: INSULIN ASPART 100 UNITS/ML, PEN SQ-INSULIN SCH ×4 (07:00→21:39)
[2017-02-08 07:04] VITALS: BP 103/66
[2017-02-08] MEDS: CALCIUM CARBONATE 500 MG TABLET PO SCH (08:11)
[2017-02-08] MEDS: RIFAXIMIN 550 MG TABLET PO SCH ×2 (08:11→21:37)
[2017-02-08] MEDS: SPIRONOLACTONE 25 MG TABLET PO SCH ×2 (08:12→21:38)
[2017-02-08] MEDS: SENNA/DOCUSATE TABLET PO SCH (08:12)
[2017-02-08] MEDS: POTASSIUM CHLORIDE 10 MEQ TABLET.ER PO SCH (08:13)
[2017-02-08] MEDS: SODIUM CHLORIDE FLUSH 10ML SYR IVF SCH ×2 (08:13→21:39)
[2017-02-08] MEDS: VENLAFAXINE 75 MG CAP ER PO SCH (08:14)
[2017-02-08] MEDS: LISINOPRIL 20 MG TABLET PO SCH (08:14)
[2017-02-08] MEDS: LACTULOSE 20 GM/30 ML UDC PO SCH ×3 (08:15→21:37)
[2017-02-08] MEDS: ENOXAPARIN 40 MG/0.4 ML SQ SCH (08:17)
[2017-02-08] MEDS: INSULIN DETEMIR 100 UNITS/ML, PEN SQ-INSULIN SCH ×2 (08:18→21:38)
[2017-02-08] MEDS: NYSTATIN CRM 15GM TP SCH ×3 (08:19→21:00)
[2017-02-08] MEDS: DAPTOMYCIN 750 MG in SODIUM CHLORIDE 0.9% 100 ML IVPB SCH (12:16)
[2017-02-08 14:00] VITALS: BP 113/95
[2017-02-08] MEDS: OXYcodone IR 5MG TABLET PO PRN ×4 (14:18→23:57)
[2017-02-08 20:17] VITALS: BP 99/56
[2017-02-08] MEDS: GABAPENTIN 400 MG CAPSULE PO SCH (21:38)
[2017-02-09] MEDS: morphine SULFATE 10 MG/ML, 1ML IVPush PRN ×6 (00:34→18:19)
[2017-02-09] MEDS: NICOTINE 7 MG/24 HR PATCH.TD24 TD SCH (01:00)
[2017-02-09 01:14] VITALS: BP 108/66
[2017-02-09] MEDS: OXYcodone IR 5MG TABLET PO PRN ×4 (06:15→21:17)
[2017-02-09] MEDS: NYSTATIN 500,000 UNITS/5 ML UDC PO SCH ×4 (06:17→21:02)
[2017-02-09 07:18] VITALS: BP 106/69
[2017-02-09] MEDS: VENLAFAXINE 75 MG CAP ER PO SCH (09:26)
[2017-02-09] MEDS: CALCIUM CARBONATE 500 MG TABLET PO SCH (09:26)
[2017-02-09] MEDS: LISINOPRIL 20 MG TABLET PO SCH (09:27)
[2017-02-09] MEDS: RIFAXIMIN 550 MG TABLET PO SCH ×2 (09:27→21:02)
[2017-02-09] MEDS: LACTULOSE 20 GM/30 ML UDC PO SCH ×3 (09:27→21:02)
[2017-02-09] MEDS: SPIRONOLACTONE 25 MG TABLET PO SCH ×2 (09:27→21:01)
[2017-02-09] MEDS: SENNA/DOCUSATE TABLET PO SCH (09:27)
[2017-02-09] MEDS: POTASSIUM CHLORIDE 10 MEQ TABLET.ER PO SCH (09:28)
[2017-02-09] MEDS: SODIUM CHLORIDE FLUSH 10ML SYR IVF SCH ×2 (09:28→21:01)
[2017-02-09] MEDS: ENOXAPARIN 40 MG/0.4 ML SQ SCH (09:29)
[2017-02-09] MEDS: INSULIN DETEMIR 100 UNITS/ML, PEN SQ-INSULIN SCH ×2 (09:29→21:04)
[2017-02-09] MEDS: INSULIN ASPART 100 UNITS/ML, PEN SQ-INSULIN SCH ×4 (09:30→21:03)
[2017-02-09] MEDS: NYSTATIN CRM 15GM TP SCH ×3 (09:33→21:02)
[2017-02-09] MEDS: DAPTOMYCIN 750 MG in SODIUM CHLORIDE 0.9% 100 ML IVPB SCH (12:28)
[2017-02-09 13:34] VITALS: BP 113/66
[2017-02-09 19:36] VITALS: BP 103/67
[2017-02-09] MEDS: GABAPENTIN 400 MG CAPSULE PO SCH (21:02)
[2017-02-10] MEDS: morphine SULFATE 10 MG/ML, 1ML IVPush PRN ×8 (00:02→22:28)
[2017-02-10] MEDS: NICOTINE 7 MG/24 HR PATCH.TD24 TD SCH (01:00)
[2017-02-10 03:19] VITALS: BP 109/71
[2017-02-10] MEDS: OXYcodone IR 5MG TABLET PO PRN ×3 (04:36→17:53)
[2017-02-10] MEDS: NYSTATIN 500,000 UNITS/5 ML UDC PO SCH ×4 (06:20→21:46)
[2017-02-10 07:29] VITALS: BP 103/63
[2017-02-10] MEDS: VENLAFAXINE 75 MG CAP ER PO SCH (08:35)
[2017-02-10] MEDS: LACTULOSE 20 GM/30 ML UDC PO SCH ×3 (08:35→21:46)
[2017-02-10] MEDS: RIFAXIMIN 550 MG TABLET PO SCH ×2 (08:35→21:46)
[2017-02-10] MEDS: LISINOPRIL 20 MG TABLET PO SCH (08:35)
[2017-02-10] MEDS: CALCIUM CARBONATE 500 MG TABLET PO SCH (08:35)
[2017-02-10] MEDS: SPIRONOLACTONE 25 MG TABLET PO SCH ×2 (08:35→21:47)
[2017-02-10] MEDS: POTASSIUM CHLORIDE 10 MEQ TABLET.ER PO SCH (08:35)
[2017-02-10] MEDS: SENNA/DOCUSATE TABLET PO SCH (08:36)
[2017-02-10] MEDS: ENOXAPARIN 40 MG/0.4 ML SQ SCH (08:36)
[2017-02-10] MEDS: INSULIN DETEMIR 100 UNITS/ML, PEN SQ-INSULIN SCH ×2 (08:36→21:48)
[2017-02-10] MEDS: INSULIN ASPART 100 UNITS/ML, PEN SQ-INSULIN SCH ×4 (08:37→21:00)
[2017-02-10] MEDS: NYSTATIN CRM 15GM TP SCH ×3 (08:41→21:00)
[2017-02-10] MEDS: SODIUM CHLORIDE FLUSH 10ML SYR IVF SCH ×2 (08:43→21:00)
[2017-02-10] MEDS: DAPTOMYCIN 750 MG in SODIUM CHLORIDE 0.9% 100 ML IVPB SCH (13:32)
[2017-02-10 14:00] VITALS: BP 114/72
[2017-02-10 19:10] VITALS: BP 103/67
[2017-02-10] MEDS: GABAPENTIN 400 MG CAPSULE PO SCH (21:46)
[2017-02-11] MEDS: NICOTINE 7 MG/24 HR PATCH.TD24 TD SCH (01:00)
[2017-02-11 01:32] VITALS: BP 110/69
[2017-02-11] MEDS: morphine SULFATE 10 MG/ML, 1ML IVPush PRN ×7 (01:43→21:43)
[2017-02-11] MEDS: OXYcodone IR 5MG TABLET PO PRN ×2 (04:33→13:43)
[2017-02-11] MEDS: NYSTATIN 500,000 UNITS/5 ML UDC PO SCH ×4 (05:38→20:49)
[2017-02-11] MEDS: INSULIN ASPART 100 UNITS/ML, PEN SQ-INSULIN SCH ×4 (07:00→20:51)
[2017-02-11 07:01] VITALS: BP 110/64
[2017-02-11] MEDS: RIFAXIMIN 550 MG TABLET PO SCH ×2 (08:58→20:50)
[2017-02-11] MEDS: LACTULOSE 20 GM/30 ML UDC PO SCH ×3 (08:58→20:49)
[2017-02-11] MEDS: LISINOPRIL 20 MG TABLET PO SCH (08:59)
[2017-02-11] MEDS: POTASSIUM CHLORIDE 10 MEQ TABLET.ER PO SCH (08:59)
[2017-02-11] MEDS: VENLAFAXINE 75 MG CAP ER PO SCH (08:59)
[2017-02-11] MEDS: SENNA/DOCUSATE TABLET PO SCH (08:59)
[2017-02-11] MEDS: CALCIUM CARBONATE 500 MG TABLET PO SCH (08:59)
[2017-02-11] MEDS: SPIRONOLACTONE 25 MG TABLET PO SCH ×2 (08:59→20:50)
[2017-02-11] MEDS: INSULIN DETEMIR 100 UNITS/ML, PEN SQ-INSULIN SCH ×2 (09:00→20:51)
[2017-02-11] MEDS: ENOXAPARIN 40 MG/0.4 ML SQ SCH (09:00)
[2017-02-11] MEDS: SODIUM CHLORIDE FLUSH 10ML SYR IVF SCH ×2 (09:01→21:43)
[2017-02-11] MEDS: NYSTATIN CRM 15GM TP SCH ×3 (09:05→20:55)
[2017-02-11] MEDS ORDERED: ALBUMIN HUMAN 25% 100 ML IV ONE (10:30)
[2017-02-11] MEDS ORDERED: BUMETANIDE 0.25 MG/ML, 4ML IV SCH (10:30)
[2017-02-11] MEDS: BUMETANIDE 1 MG TABLET PO SCH (10:55)
[2017-02-11] MEDS: DAPTOMYCIN 750 MG in SODIUM CHLORIDE 0.9% 100 ML IVPB SCH (13:43)
[2017-02-11 13:52] VITALS: BP 113/70
[2017-02-11 20:00] VITALS: BP 107/57
[2017-02-11] MEDS: GABAPENTIN 400 MG CAPSULE PO SCH (20:50)
[2017-02-12] MEDS: morphine SULFATE 10 MG/ML, 1ML IVPush PRN ×4 (01:04→11:00)
[2017-02-12 03:17] VITALS: BP 123/51
[2017-02-12] MEDS: NYSTATIN 500,000 UNITS/5 ML UDC PO SCH ×4 (05:48→20:46)
[2017-02-12] MEDS: INSULIN ASPART 100 UNITS/ML, PEN SQ-INSULIN SCH ×4 (07:00→20:53)
[2017-02-12 08:04] VITALS: BP 113/69
[2017-02-12] MEDS: NICOTINE 7 MG/24 HR PATCH.TD24 TD SCH (08:13)
[2017-02-12] MEDS: POTASSIUM CHLORIDE 10 MEQ TABLET.ER PO SCH (08:32)
[2017-02-12] MEDS: SODIUM CHLORIDE FLUSH 10ML SYR IVF SCH ×2 (08:32→20:45)
[2017-02-12] MEDS: SPIRONOLACTONE 25 MG TABLET PO SCH ×2 (08:32→20:45)
[2017-02-12] MEDS: BUMETANIDE 1 MG TABLET PO SCH (08:33)
[2017-02-12] MEDS: LISINOPRIL 20 MG TABLET PO SCH (08:33)
[2017-02-12] MEDS: RIFAXIMIN 550 MG TABLET PO SCH ×2 (08:33→20:47)
[2017-02-12] MEDS: ENOXAPARIN 40 MG/0.4 ML SQ SCH (08:33)
[2017-02-12] MEDS: VENLAFAXINE 75 MG CAP ER PO SCH (08:33)
[2017-02-12] MEDS: CALCIUM CARBONATE 500 MG TABLET PO SCH (08:33)
[2017-02-12] MEDS: SENNA/DOCUSATE TABLET PO SCH (08:33)
[2017-02-12] MEDS: LACTULOSE 20 GM/30 ML UDC PO SCH ×3 (08:33→20:46)
[2017-02-12] MEDS: INSULIN DETEMIR 100 UNITS/ML, PEN SQ-INSULIN SCH ×2 (08:34→20:52)
[2017-02-12] MEDS: NYSTATIN CRM 15GM TP SCH ×3 (08:37→20:54)
[2017-02-12] MEDS ORDERED: HYDROmorphone 1 MG/ML, 1ML IV PRN (11:30)
[2017-02-12] MEDS: DAPTOMYCIN 750 MG in SODIUM CHLORIDE 0.9% 100 ML IVPB SCH (12:28)
[2017-02-12] MEDS: OXYcodone IR 5MG TABLET PO PRN ×2 (12:33→18:39)
[2017-02-12 14:40] VITALS: BP 131/67
[2017-02-12] MEDS ORDERED: HYDROmorphone 1 MG/ML, 1ML IV ONE (16:00)
[2017-02-12 20:37] VITALS: BP 102/64
[2017-02-12] MEDS: HYDROmorphone 1 MG/ML, 1ML IV PRN ×2 (20:39→21:09)
[2017-02-12] MEDS: GABAPENTIN 400 MG CAPSULE PO SCH (20:46)
[2017-02-13 01:00] VITALS: BP 106/67
[2017-02-13] MEDS: HYDROmorphone 1 MG/ML, 1ML IV PRN ×6 (01:06→22:22)
[2017-02-13] MEDS: OXYcodone IR 5MG TABLET PO PRN ×3 (01:06→23:21)
[2017-02-13 05:13] LABS: HEMATOCRIT 33.2 % (39.2-51.8); HEMOGLOBIN 11.3 g/dL (13.7-18.0); WHITE BLOOD COUNT 4.9 x10^3/uL (3.4-10)
[2017-02-13 05:19] LABS: BLOOD UREA NITROGEN 19 mg/dL (7-18)
[2017-02-13] MEDS: NYSTATIN 500,000 UNITS/5 ML UDC PO SCH ×4 (05:50→22:22)
[2017-02-13] MEDS ORDERED: ALBUMIN HUMAN 25% 100 ML IV ONE (07:30)
[2017-02-13 07:34] VITALS: BP 109/65
[2017-02-13] MEDS: SENNA/DOCUSATE TABLET PO SCH (09:00)
[2017-02-13] MEDS: NYSTATIN CRM 15GM TP SCH ×3 (09:00→21:00)
[2017-02-13] MEDS: SODIUM CHLORIDE FLUSH 10ML SYR IVF SCH ×2 (09:00→22:22)
[2017-02-13] MEDS: NICOTINE 7 MG/24 HR PATCH.TD24 TD SCH (09:00)
[2017-02-13] MEDS: BUMETANIDE 1 MG TABLET PO SCH ×2 (09:00→11:31)
[2017-02-13] MEDS: SPIRONOLACTONE 25 MG TABLET PO SCH ×2 (09:02→22:23)
[2017-02-13] MEDS: CALCIUM CARBONATE 500 MG TABLET PO SCH (09:02)
[2017-02-13] MEDS: VENLAFAXINE 75 MG CAP ER PO SCH (09:02)
[2017-02-13] MEDS: LISINOPRIL 20 MG TABLET PO SCH (09:02)
[2017-02-13] MEDS: LACTULOSE 20 GM/30 ML UDC PO SCH ×3 (09:03→22:22)
[2017-02-13] MEDS: POTASSIUM CHLORIDE 10 MEQ TABLET.ER PO SCH (09:03)
[2017-02-13] MEDS: RIFAXIMIN 550 MG TABLET PO SCH ×2 (09:03→22:23)
[2017-02-13] MEDS: ENOXAPARIN 40 MG/0.4 ML SQ SCH (09:03)
[2017-02-13] MEDS: INSULIN DETEMIR 100 UNITS/ML, PEN SQ-INSULIN SCH ×2 (09:04→22:47)
[2017-02-13] MEDS: INSULIN ASPART 100 UNITS/ML, PEN SQ-INSULIN SCH ×4 (09:04→22:47)
[2017-02-13] MEDS: DAPTOMYCIN 750 MG in SODIUM CHLORIDE 0.9% 100 ML IVPB SCH (13:39)
[2017-02-13 14:10] VITALS: BP 115/67
[2017-02-13 19:22] VITALS: BP 106/69
[2017-02-13] MEDS: GABAPENTIN 400 MG CAPSULE PO SCH (22:24)
[2017-02-14 02:37] VITALS: BP 133/81
[2017-02-14] MEDS: HYDROmorphone 1 MG/ML, 1ML IV PRN ×4 (02:38→20:35)
[2017-02-14] MEDS: NYSTATIN 500,000 UNITS/5 ML UDC PO SCH ×4 (06:04→20:15)
[2017-02-14] MEDS: OXYcodone IR 5MG TABLET PO PRN (06:04)
[2017-02-14] MEDS ORDERED: ALBUMIN HUMAN 25% 100 ML IV ONE (06:30)
[2017-02-14 06:52] LABS: HEMOGLOBIN 11.8 g/dL (13.7-18.0); WHITE BLOOD COUNT 5.8 x10^3/uL (3.4-10)
[2017-02-14 07:10] LABS: BLOOD UREA NITROGEN 17 mg/dL (7-18)
[2017-02-14 07:11] LABS: ASPARTATE AMINO TRANSFERASE 32 U/L (15-37)
[2017-02-14 07:26] VITALS: BP 116/69
[2017-02-14] MEDS ORDERED: LISI-170 PO (07:49)
[2017-02-14] MEDS ORDERED: INSU100I28 SQ-INSULIN (07:49)
[2017-02-14] MEDS ORDERED: NYST15CR33 TP (07:49)
[2017-02-14] MEDS ORDERED: NICO-485 TD (07:49)
[2017-02-14] MEDS ORDERED: POLY17PO5 PO (07:49)
[2017-02-14] MEDS: NICOTINE 7 MG/24 HR PATCH.TD24 TD SCH (09:00)
[2017-02-14] MEDS: NYSTATIN CRM 15GM TP SCH ×3 (09:00→21:00)
[2017-02-14] MEDS: SODIUM CHLORIDE FLUSH 10ML SYR IVF SCH ×2 (09:00→20:35)
[2017-02-14] MEDS ORDERED: BUMETANIDE 1 MG TABLET PO SCH (09:00)
[2017-02-14] MEDS: ENOXAPARIN 40 MG/0.4 ML SQ SCH (10:30)
[2017-02-14] MEDS: INSULIN ASPART 100 UNITS/ML, PEN SQ-INSULIN SCH ×4 (10:31→20:36)
[2017-02-14] MEDS: LACTULOSE 20 GM/30 ML UDC PO SCH ×3 (10:31→20:16)
[2017-02-14] MEDS: INSULIN DETEMIR 100 UNITS/ML, PEN SQ-INSULIN SCH ×2 (10:31→20:37)
[2017-02-14] MEDS: SPIRONOLACTONE 25 MG TABLET PO SCH ×2 (10:32→20:16)
[2017-02-14] MEDS: SENNA/DOCUSATE TABLET PO SCH (10:32)
[2017-02-14] MEDS: VENLAFAXINE 75 MG CAP ER PO SCH (10:32)
[2017-02-14] MEDS: POTASSIUM CHLORIDE 10 MEQ TABLET.ER PO SCH (10:32)
[2017-02-14] MEDS: LISINOPRIL 20 MG TABLET PO SCH (10:32)
[2017-02-14] MEDS: CALCIUM CARBONATE 500 MG TABLET PO SCH (10:32)
[2017-02-14] MEDS: RIFAXIMIN 550 MG TABLET PO SCH ×2 (10:33→20:14)
[2017-02-14] MEDS: BUMETANIDE 1 MG TABLET PO SCH ×2 (11:47→11:48)
[2017-02-14 13:35] VITALS: BP 126/74
[2017-02-14] MEDS: DAPTOMYCIN 750 MG in SODIUM CHLORIDE 0.9% 100 ML IVPB SCH (13:41)
[2017-02-14 19:20] VITALS: BP 109/68
[2017-02-14] MEDS: GABAPENTIN 400 MG CAPSULE PO SCH (20:16)
[2017-02-15] MEDS: HYDROmorphone 1 MG/ML, 1ML IV PRN ×6 (00:57→23:05)
[2017-02-15 01:24] VITALS: BP 99/65
[2017-02-15] MEDS: NYSTATIN 500,000 UNITS/5 ML UDC PO SCH ×4 (06:00→21:29)
[2017-02-15 07:09] LABS: BLOOD UREA NITROGEN 16 mg/dL (7-18)
[2017-02-15 07:31] VITALS: BP 110/73
[2017-02-15] MEDS: INSULIN ASPART 100 UNITS/ML, PEN SQ-INSULIN SCH ×4 (07:39→21:42)
[2017-02-15] MEDS: SPIRONOLACTONE 25 MG TABLET PO SCH ×2 (07:43→21:31)
[2017-02-15] MEDS: POTASSIUM CHLORIDE 10 MEQ TABLET.ER PO SCH (07:43)
[2017-02-15] MEDS: SODIUM CHLORIDE FLUSH 10ML SYR IVF SCH ×2 (07:43→21:43)
[2017-02-15] MEDS: BUMETANIDE 1 MG TABLET PO SCH (07:44)
[2017-02-15] MEDS: LACTULOSE 20 GM/30 ML UDC PO SCH ×3 (07:45→21:29)
[2017-02-15] MEDS: VENLAFAXINE 75 MG CAP ER PO SCH (07:45)
[2017-02-15] MEDS: CALCIUM CARBONATE 500 MG TABLET PO SCH (07:46)
[2017-02-15] MEDS: RIFAXIMIN 550 MG TABLET PO SCH ×2 (07:46→21:29)
[2017-02-15] MEDS: LISINOPRIL 20 MG TABLET PO SCH (07:46)
[2017-02-15] MEDS: NICOTINE 7 MG/24 HR PATCH.TD24 TD SCH (07:47)
[2017-02-15] MEDS: ENOXAPARIN 40 MG/0.4 ML SQ SCH (07:47)
[2017-02-15] MEDS: SENNA/DOCUSATE TABLET PO SCH (07:47)
[2017-02-15] MEDS: NYSTATIN CRM 15GM TP SCH ×3 (07:48→21:29)
[2017-02-15] MEDS: INSULIN DETEMIR 100 UNITS/ML, PEN SQ-INSULIN SCH ×2 (11:02→21:43)
[2017-02-15] MEDS: DAPTOMYCIN 750 MG in SODIUM CHLORIDE 0.9% 100 ML IVPB SCH (13:02)
[2017-02-15 13:28] VITALS: BP 114/76
[2017-02-15 19:35] VITALS: BP 119/75
[2017-02-15] MEDS: GABAPENTIN 400 MG CAPSULE PO SCH (21:31)
[2017-02-15] MEDS: OXYcodone IR 5MG TABLET PO PRN (21:59)
[2017-02-16 03:12] VITALS: BP 113/76
[2017-02-16] MEDS: HYDROmorphone 1 MG/ML, 1ML IV PRN ×5 (03:21→20:05)
[2017-02-16 04:09] LABS: ASPARTATE AMINO TRANSFERASE 36 U/L (15-37); BLOOD UREA NITROGEN 20 mg/dL (7-18)
[2017-02-16 04:20] LABS: HEMATOCRIT 34.7 % (39.2-51.8); HEMOGLOBIN 11.8 g/dL (13.7-18.0); WHITE BLOOD COUNT 5.3 x10^3/uL (3.4-10)
[2017-02-16 06:50] VITALS: BP 113/73
[2017-02-16] MEDS: NYSTATIN 500,000 UNITS/5 ML UDC PO SCH ×4 (07:14→20:20)
[2017-02-16] MEDS: LACTULOSE 20 GM/30 ML UDC PO SCH ×3 (08:04→20:20)
[2017-02-16] MEDS: NYSTATIN CRM 15GM TP SCH ×3 (08:05→20:27)
[2017-02-16] MEDS: ENOXAPARIN 40 MG/0.4 ML SQ SCH (08:06)
[2017-02-16] MEDS: NICOTINE 7 MG/24 HR PATCH.TD24 TD SCH (08:07)
[2017-02-16] MEDS: RIFAXIMIN 550 MG TABLET PO SCH ×2 (08:08→20:19)
[2017-02-16] MEDS: POTASSIUM CHLORIDE 10 MEQ TABLET.ER PO SCH (08:08)
[2017-02-16] MEDS: SPIRONOLACTONE 25 MG TABLET PO SCH ×2 (08:08→20:19)
[2017-02-16] MEDS: VENLAFAXINE 75 MG CAP ER PO SCH (08:08)
[2017-02-16] MEDS: LISINOPRIL 20 MG TABLET PO SCH (08:08)
[2017-02-16] MEDS: CALCIUM CARBONATE 500 MG TABLET PO SCH (08:09)
[2017-02-16] MEDS: SENNA/DOCUSATE TABLET PO SCH (08:09)
[2017-02-16] MEDS: BUMETANIDE 1 MG TABLET PO SCH (08:09)
[2017-02-16] MEDS: SODIUM CHLORIDE FLUSH 10ML SYR IVF SCH ×2 (08:11→20:20)
[2017-02-16] MEDS: INSULIN ASPART 100 UNITS/ML, PEN SQ-INSULIN SCH ×4 (08:12→20:19)
[2017-02-16] MEDS: INSULIN DETEMIR 100 UNITS/ML, PEN SQ-INSULIN SCH ×2 (09:41→22:30)
[2017-02-16 12:20] VITALS: BP 118/66
[2017-02-16] MEDS: MULTIVITAMIN 1 TABLET PO SCH (14:01)
[2017-02-16] MEDS: DAPTOMYCIN 750 MG in SODIUM CHLORIDE 0.9% 100 ML IVPB SCH (14:01)
[2017-02-16 19:07] VITALS: BP 104/65
[2017-02-16] MEDS: GABAPENTIN 400 MG CAPSULE PO SCH (20:19)
[2017-02-16] MEDS: OXYcodone IR 5MG TABLET PO PRN (21:52)
[2017-02-17] MEDS: HYDROmorphone 1 MG/ML, 1ML IV PRN ×6 (00:04→22:41)
[2017-02-17 01:26] VITALS: BP 105/69
[2017-02-17] MEDS: NYSTATIN 500,000 UNITS/5 ML UDC PO SCH ×4 (05:35→22:01)
[2017-02-17 05:48] LABS: BLOOD UREA NITROGEN 17 mg/dL (7-18)
[2017-02-17 05:52] LABS: HEMATOCRIT 35.4 % (39.2-51.8); HEMOGLOBIN 12.2 g/dL (13.7-18.0); WHITE BLOOD COUNT 5.4 x10^3/uL (3.4-10)
[2017-02-17] MEDS: INSULIN ASPART 100 UNITS/ML, PEN SQ-INSULIN SCH ×4 (07:00→22:41)
[2017-02-17 07:56] VITALS: BP 109/71
[2017-02-17] MEDS: BUMETANIDE 1 MG TABLET PO SCH (09:00)
[2017-02-17] MEDS: NICOTINE 7 MG/24 HR PATCH.TD24 TD SCH (09:00)
[2017-02-17] MEDS: NYSTATIN CRM 15GM TP SCH ×3 (09:00→21:00)
[2017-02-17] MEDS: SPIRONOLACTONE 25 MG TABLET PO SCH ×2 (09:03→22:01)
[2017-02-17] MEDS: RIFAXIMIN 550 MG TABLET PO SCH ×2 (09:03→22:01)
[2017-02-17] MEDS: LACTULOSE 20 GM/30 ML UDC PO SCH ×3 (09:03→22:01)
[2017-02-17] MEDS: SODIUM CHLORIDE FLUSH 10ML SYR IVF SCH ×2 (09:04→21:00)
[2017-02-17] MEDS: MULTIVITAMIN 1 TABLET PO SCH (09:05)
[2017-02-17] MEDS: POTASSIUM CHLORIDE 10 MEQ TABLET.ER PO SCH (09:05)
[2017-02-17] MEDS: CALCIUM CARBONATE 500 MG TABLET PO SCH (09:05)
[2017-02-17] MEDS: SENNA/DOCUSATE TABLET PO SCH (09:05)
[2017-02-17] MEDS: LISINOPRIL 20 MG TABLET PO SCH (09:06)
[2017-02-17] MEDS: VENLAFAXINE 75 MG CAP ER PO SCH (11:04)
[2017-02-17] MEDS: ENOXAPARIN 40 MG/0.4 ML SQ SCH (11:05)
[2017-02-17] MEDS: LIDOCAINE/PRILOCAINE CRM W/TEG 5GM TP PRN (11:06)
[2017-02-17] MEDS: INSULIN DETEMIR 100 UNITS/ML, PEN SQ-INSULIN SCH ×2 (11:08→22:40)
[2017-02-17] MEDS: DAPTOMYCIN 750 MG in SODIUM CHLORIDE 0.9% 100 ML IVPB SCH (13:58)
[2017-02-17 14:30] VITALS: BP 120/69
[2017-02-17 19:00] VITALS: BP 117/72
[2017-02-17] MEDS: GABAPENTIN 400 MG CAPSULE PO SCH (22:02)
[2017-02-17] MEDS: OXYcodone IR 5MG TABLET PO PRN (22:02)
[2017-02-18 00:49] VITALS: BP 113/73
[2017-02-18] MEDS: HYDROmorphone 1 MG/ML, 1ML IV PRN ×5 (02:53→21:07)
[2017-02-18 03:30] LABS: BLOOD UREA NITROGEN 19 mg/dL (7-18)
[2017-02-18] MEDS: NYSTATIN 500,000 UNITS/5 ML UDC PO SCH ×4 (06:47→20:28)
[2017-02-18 08:00] VITALS: BP 123/74
[2017-02-18] MEDS: POTASSIUM CHLORIDE 10 MEQ TABLET.ER PO SCH (08:51)
[2017-02-18] MEDS: LACTULOSE 20 GM/30 ML UDC PO SCH ×3 (08:51→20:28)
[2017-02-18] MEDS: MULTIVITAMIN 1 TABLET PO SCH (08:51)
[2017-02-18] MEDS: LISINOPRIL 20 MG TABLET PO SCH (08:51)
[2017-02-18] MEDS: CALCIUM CARBONATE 500 MG TABLET PO SCH (08:51)
[2017-02-18] MEDS: SPIRONOLACTONE 25 MG TABLET PO SCH ×2 (08:51→20:28)
[2017-02-18] MEDS: SENNA/DOCUSATE TABLET PO SCH (08:52)
[2017-02-18] MEDS: BUMETANIDE 1 MG TABLET PO SCH (08:52)
[2017-02-18] MEDS: SODIUM CHLORIDE FLUSH 10ML SYR IVF SCH ×2 (08:53→20:29)
[2017-02-18] MEDS: VENLAFAXINE 75 MG CAP ER PO SCH (08:53)
[2017-02-18] MEDS: RIFAXIMIN 550 MG TABLET PO SCH ×2 (08:53→20:28)
[2017-02-18] MEDS: INSULIN ASPART 100 UNITS/ML, PEN SQ-INSULIN SCH ×4 (08:54→20:29)
[2017-02-18] MEDS: ENOXAPARIN 40 MG/0.4 ML SQ SCH (08:55)
[2017-02-18] MEDS: NYSTATIN CRM 15GM TP SCH ×3 (08:57→20:30)
[2017-02-18] MEDS: NICOTINE 7 MG/24 HR PATCH.TD24 TD SCH (09:00)
[2017-02-18 14:36] VITALS: BP 117/72
[2017-02-18] MEDS: DAPTOMYCIN 750 MG in SODIUM CHLORIDE 0.9% 100 ML IVPB SCH (15:01)
[2017-02-18] MEDS: OXYcodone IR 5MG TABLET PO PRN (15:01)
[2017-02-18] MEDS ORDERED: INSULIN DETEMIR 100 UNITS/ML, PEN SQ-INSULIN SCH (16:30)
[2017-02-18 19:33] VITALS: BP 111/70
[2017-02-18] MEDS: GABAPENTIN 400 MG CAPSULE PO SCH (20:28)
[2017-02-18] MEDS: INSULIN DETEMIR 100 UNITS/ML, PEN SQ-INSULIN SCH (20:29)
[2017-02-19 00:58] VITALS: BP 111/70
[2017-02-19] MEDS: HYDROmorphone 1 MG/ML, 1ML IV PRN ×6 (01:16→23:49)
[2017-02-19] MEDS: NYSTATIN 500,000 UNITS/5 ML UDC PO SCH ×4 (05:47→20:50)
[2017-02-19 08:10] VITALS: BP 111/64
[2017-02-19] MEDS: NICOTINE 7 MG/24 HR PATCH.TD24 TD SCH (08:29)
[2017-02-19] MEDS: LACTULOSE 20 GM/30 ML UDC PO SCH ×3 (08:39→20:50)
[2017-02-19] MEDS: SENNA/DOCUSATE TABLET PO SCH (08:40)
[2017-02-19] MEDS: ENOXAPARIN 40 MG/0.4 ML SQ SCH (08:40)
[2017-02-19] MEDS: INSULIN ASPART 100 UNITS/ML, PEN SQ-INSULIN SCH ×4 (08:40→20:50)
[2017-02-19] MEDS: LISINOPRIL 20 MG TABLET PO SCH (08:41)
[2017-02-19] MEDS: BUMETANIDE 1 MG TABLET PO SCH (08:41)
[2017-02-19] MEDS: MULTIVITAMIN 1 TABLET PO SCH (08:41)
[2017-02-19] MEDS: CALCIUM CARBONATE 500 MG TABLET PO SCH (08:41)
[2017-02-19] MEDS: SPIRONOLACTONE 25 MG TABLET PO SCH ×2 (08:41→20:49)
[2017-02-19] MEDS: POTASSIUM CHLORIDE 10 MEQ TABLET.ER PO SCH (08:41)
[2017-02-19] MEDS: NYSTATIN CRM 15GM TP SCH ×3 (08:42→20:49)
[2017-02-19] MEDS: RIFAXIMIN 550 MG TABLET PO SCH ×2 (08:42→20:50)
[2017-02-19] MEDS: SODIUM CHLORIDE FLUSH 10ML SYR IVF SCH ×2 (08:42→20:51)
[2017-02-19] MEDS: VENLAFAXINE 75 MG CAP ER PO SCH (08:43)
[2017-02-19] MEDS: DAPTOMYCIN 750 MG in SODIUM CHLORIDE 0.9% 100 ML IVPB SCH (12:45)
[2017-02-19 13:05] VITALS: BP 102/66
[2017-02-19 16:18] LABS: BLOOD UREA NITROGEN 22 mg/dL (7-18)
[2017-02-19] MEDS: OXYcodone IR 5MG TABLET PO PRN (17:39)
[2017-02-19 19:20] VITALS: BP 109/73
[2017-02-19] MEDS: GABAPENTIN 400 MG CAPSULE PO SCH (20:49)
[2017-02-19] MEDS: INSULIN DETEMIR 100 UNITS/ML, PEN SQ-INSULIN SCH (20:51)
[2017-02-20 00:52] VITALS: BP 95/63
[2017-02-20] MEDS: OXYcodone IR 5MG TABLET PO PRN ×3 (02:55→18:15)
[2017-02-20] MEDS: NYSTATIN 500,000 UNITS/5 ML UDC PO SCH ×4 (05:31→21:02)
[2017-02-20 06:02] LABS: BLOOD UREA NITROGEN 25 mg/dL (7-18)
[2017-02-20 07:56] VITALS: BP 110/71
[2017-02-20] MEDS: HYDROmorphone 1 MG/ML, 1ML IV PRN ×4 (08:47→22:11)
[2017-02-20] MEDS: INSULIN ASPART 100 UNITS/ML, PEN SQ-INSULIN SCH ×4 (08:50→21:34)
[2017-02-20] MEDS: SODIUM CHLORIDE FLUSH 10ML SYR IVF SCH ×2 (08:53→21:02)
[2017-02-20] MEDS: POTASSIUM CHLORIDE 10 MEQ TABLET.ER PO SCH (08:53)
[2017-02-20] MEDS: SPIRONOLACTONE 25 MG TABLET PO SCH ×2 (08:53→21:02)
[2017-02-20] MEDS: BUMETANIDE 1 MG TABLET PO SCH (08:54)
[2017-02-20] MEDS: VENLAFAXINE 75 MG CAP ER PO SCH (08:55)
[2017-02-20] MEDS: LISINOPRIL 20 MG TABLET PO SCH (08:56)
[2017-02-20] MEDS: MULTIVITAMIN 1 TABLET PO SCH (08:56)
[2017-02-20] MEDS: CALCIUM CARBONATE 500 MG TABLET PO SCH (08:56)
[2017-02-20] MEDS: LACTULOSE 20 GM/30 ML UDC PO SCH ×3 (08:56→21:02)
[2017-02-20] MEDS: RIFAXIMIN 550 MG TABLET PO SCH ×2 (08:57→21:02)
[2017-02-20] MEDS: SENNA/DOCUSATE TABLET PO SCH (08:57)
[2017-02-20] MEDS: NICOTINE 7 MG/24 HR PATCH.TD24 TD SCH (08:58)
[2017-02-20] MEDS: ENOXAPARIN 40 MG/0.4 ML SQ SCH (08:58)
[2017-02-20] MEDS: NYSTATIN CRM 15GM TP SCH ×3 (08:59→21:00)
[2017-02-20 13:19] VITALS: BP 107/70
[2017-02-20] MEDS: DAPTOMYCIN 750 MG in SODIUM CHLORIDE 0.9% 100 ML IVPB SCH (14:04)
[2017-02-20 20:06] VITALS: BP 119/78
[2017-02-20] MEDS: GABAPENTIN 400 MG CAPSULE PO SCH (21:02)
[2017-02-20] MEDS: INSULIN DETEMIR 100 UNITS/ML, PEN SQ-INSULIN SCH (21:33)
[2017-02-21 02:10] VITALS: BP 104/59
[2017-02-21] MEDS: OXYcodone IR 5MG TABLET PO PRN ×2 (02:39→09:47)
[2017-02-21] MEDS: HYDROmorphone 1 MG/ML, 1ML IV PRN ×2 (02:39→06:40)
[2017-02-21 05:40] LABS: ASPARTATE AMINO TRANSFERASE 34 U/L (15-37); BLOOD UREA NITROGEN 21 mg/dL (7-18); C-REACTIVE PROTEIN, QUANT 0.75 mg/dL (0.02-0.49)
[2017-02-21 05:58] LABS: HEMATOCRIT 36.2 % (39.2-51.8); HEMOGLOBIN 12.4 g/dL (13.7-18.0)
[2017-02-21] MEDS: NYSTATIN 500,000 UNITS/5 ML UDC PO SCH ×4 (06:39→21:40)
[2017-02-21] MEDS: POTASSIUM CHLORIDE 10 MEQ TABLET.ER PO SCH (07:58)
[2017-02-21] MEDS: INSULIN ASPART 100 UNITS/ML, PEN SQ-INSULIN SCH ×4 (07:59→21:00)
[2017-02-21] MEDS: INSULIN DETEMIR 100 UNITS/ML, PEN SQ-INSULIN SCH ×2 (07:59→21:53)
[2017-02-21 08:00] VITALS: BP 118/74
[2017-02-21] MEDS: NICOTINE 7 MG/24 HR PATCH.TD24 TD SCH (09:00)
[2017-02-21] MEDS: BUMETANIDE 1 MG TABLET PO SCH (09:48)
[2017-02-21] MEDS: SPIRONOLACTONE 25 MG TABLET PO SCH ×2 (09:48→21:40)
[2017-02-21] MEDS: VENLAFAXINE 75 MG CAP ER PO SCH (09:49)
[2017-02-21] MEDS: LACTULOSE 20 GM/30 ML UDC PO SCH ×3 (09:50→21:40)
[2017-02-21] MEDS: NYSTATIN CRM 15GM TP SCH ×3 (09:51→21:41)
[2017-02-21] MEDS: SENNA/DOCUSATE TABLET PO SCH (09:52)
[2017-02-21] MEDS: ENOXAPARIN 40 MG/0.4 ML SQ SCH (09:52)
[2017-02-21] MEDS: LISINOPRIL 20 MG TABLET PO SCH (09:53)
[2017-02-21] MEDS: CALCIUM CARBONATE 500 MG TABLET PO SCH (09:53)
[2017-02-21] MEDS: MULTIVITAMIN 1 TABLET PO SCH (09:53)
[2017-02-21] MEDS: RIFAXIMIN 550 MG TABLET PO SCH ×2 (09:54→21:40)
[2017-02-21] MEDS: HYDROmorphone 2MG TABLET PO PRN ×3 (11:52→21:41)
[2017-02-21] MEDS: SODIUM CHLORIDE FLUSH 10ML SYR IVF SCH ×2 (12:01→21:41)
[2017-02-21 13:53] VITALS: BP 119/69
[2017-02-21] MEDS: DAPTOMYCIN 750 MG in SODIUM CHLORIDE 0.9% 100 ML IVPB SCH (14:14)
[2017-02-21 20:57] VITALS: BP 104/74
[2017-02-21] MEDS: GABAPENTIN 400 MG CAPSULE PO SCH (21:41)
[2017-02-22 01:55] VITALS: BP 128/78
[2017-02-22] MEDS: OXYcodone IR 5MG TABLET PO PRN ×3 (02:04→19:21)
[2017-02-22] MEDS: HYDROmorphone 2MG TABLET PO PRN ×4 (02:04→22:19)
[2017-02-22 02:36] LABS: BLOOD UREA NITROGEN 21 mg/dL (7-18)
[2017-02-22] MEDS: NYSTATIN 500,000 UNITS/5 ML UDC PO SCH ×4 (06:15→20:30)
[2017-02-22 06:55] VITALS: BP 110/66
[2017-02-22] MEDS: INSULIN ASPART 100 UNITS/ML, PEN SQ-INSULIN SCH ×4 (07:00→20:31)
[2017-02-22] MEDS: NICOTINE 7 MG/24 HR PATCH.TD24 TD SCH (09:00)
[2017-02-22] MEDS: SODIUM CHLORIDE FLUSH 10ML SYR IVF SCH ×2 (09:00→20:29)
[2017-02-22] MEDS: BUMETANIDE 1 MG TABLET PO SCH (09:00)
[2017-02-22] MEDS: POTASSIUM CHLORIDE 10 MEQ TABLET.ER PO SCH (09:19)
[2017-02-22] MEDS: SPIRONOLACTONE 25 MG TABLET PO SCH ×2 (09:19→20:30)
[2017-02-22] MEDS: LACTULOSE 20 GM/30 ML UDC PO SCH ×3 (09:20→20:30)
[2017-02-22] MEDS: MULTIVITAMIN 1 TABLET PO SCH (09:20)
[2017-02-22] MEDS: LISINOPRIL 20 MG TABLET PO SCH (09:20)
[2017-02-22] MEDS: CALCIUM CARBONATE 500 MG TABLET PO SCH (09:20)
[2017-02-22] MEDS: SENNA/DOCUSATE TABLET PO SCH (09:20)
[2017-02-22] MEDS: VENLAFAXINE 75 MG CAP ER PO SCH (09:20)
[2017-02-22] MEDS: ENOXAPARIN 40 MG/0.4 ML SQ SCH (09:21)
[2017-02-22] MEDS: RIFAXIMIN 550 MG TABLET PO SCH ×2 (09:21→20:30)
[2017-02-22] MEDS: NYSTATIN CRM 15GM TP SCH ×3 (09:24→20:36)
[2017-02-22] MEDS: INSULIN DETEMIR 100 UNITS/ML, PEN SQ-INSULIN SCH ×2 (10:24→20:31)
[2017-02-22] MEDS: DAPTOMYCIN 750 MG in SODIUM CHLORIDE 0.9% 100 ML IVPB SCH (13:27)
[2017-02-22 15:55] VITALS: BP 105/71
[2017-02-22] MEDS: LIDOCAINE/PRILOCAINE CRM W/TEG 5GM TP PRN (16:29)
[2017-02-22 19:24] VITALS: BP 110/73
[2017-02-22] MEDS: GABAPENTIN 400 MG CAPSULE PO SCH (20:30)
[2017-02-23] MEDS: HYDROmorphone 2MG TABLET PO PRN ×2 (02:34→13:38)
[2017-02-23 02:36] VITALS: BP 99/68
[2017-02-23] MEDS: NYSTATIN 500,000 UNITS/5 ML UDC PO SCH ×3 (05:42→16:00)
[2017-02-23] MEDS: INSULIN ASPART 100 UNITS/ML, PEN SQ-INSULIN SCH ×3 (07:00→16:00)
[2017-02-23 07:02] VITALS: BP 113/76
[2017-02-23] MEDS: SODIUM CHLORIDE FLUSH 10ML SYR IVF SCH (08:13)
[2017-02-23] MEDS: POTASSIUM CHLORIDE 10 MEQ TABLET.ER PO SCH (08:13)
[2017-02-23] MEDS: BUMETANIDE 1 MG TABLET PO SCH (08:13)
[2017-02-23] MEDS: SPIRONOLACTONE 25 MG TABLET PO SCH (08:13)
[2017-02-23] MEDS: VENLAFAXINE 75 MG CAP ER PO SCH (08:14)
[2017-02-23] MEDS: ENOXAPARIN 40 MG/0.4 ML SQ SCH (08:14)
[2017-02-23] MEDS: RIFAXIMIN 550 MG TABLET PO SCH (08:14)
[2017-02-23] MEDS: CALCIUM CARBONATE 500 MG TABLET PO SCH (08:14)
[2017-02-23] MEDS: LACTULOSE 20 GM/30 ML UDC PO SCH ×2 (08:14→16:00)
[2017-02-23] MEDS: SENNA/DOCUSATE TABLET PO SCH (08:14)
[2017-02-23] MEDS: MULTIVITAMIN 1 TABLET PO SCH (08:14)
[2017-02-23] MEDS: LISINOPRIL 20 MG TABLET PO SCH (08:14)
[2017-02-23] MEDS: NICOTINE 7 MG/24 HR PATCH.TD24 TD SCH (08:15)
[2017-02-23] MEDS: OXYcodone IR 5MG TABLET PO PRN ×2 (08:15→16:11)
[2017-02-23] MEDS: NYSTATIN CRM 15GM TP SCH ×2 (08:15→16:00)
[2017-02-23] MEDS: INSULIN DETEMIR 100 UNITS/ML, PEN SQ-INSULIN SCH (08:16)
[2017-02-23 09:58] LABS: ASPARTATE AMINO TRANSFERASE 39 U/L (15-37); BLOOD UREA NITROGEN 21 mg/dL (7-18)
[2017-02-23 10:10] LABS: HEMOGLOBIN 13.3 g/dL (13.7-18.0); WHITE BLOOD COUNT 6.4 x10^3/uL (3.4-10)
[2017-02-23 12:19] VITALS: BP 101/67
[2017-02-23] MEDS ORDERED: BUME1TAB21 PO (12:28)
[2017-02-23] MEDS: DAPTOMYCIN 750 MG in SODIUM CHLORIDE 0.9% 100 ML IVPB SCH (13:27)
== END 2017-02-23 16:52 | DRG 616 ==
LOC: SUATTDRO 01-28 00:39 → ED 01-28 01:07 → EDIP 01-28 01:21 → 3NE 01-28 01:35
PROVIDERS: ADMIT Family Medicine; ATTEND Family Medicine
PROC: 0Y6M0ZF Detachment at Right Foot, Partial 5th Ray, Open Approach (ICD-10-PCS; principal; 2017-02-03)
PROC: 02HV33Z Insertion of Infusion Device into Superior Vena Cava, Percutaneous Approach (ICD-10-PCS; 2017-02-03)
PROC: B5181ZA Fluoroscopy of Superior Vena Cava using Low Osmolar Contrast, Guidance (ICD-10-PCS; 2017-02-03)
PROC: B548ZZA Ultrasonography of Superior Vena Cava, Guidance (ICD-10-PCS; 2017-02-03)
DX: E11.621 Type 2 diabetes mellitus with foot ulcer (principal); E43 Unspecified severe protein-calorie malnutrition; D69.6 Thrombocytopenia, unspecified; M86.172 Other acute osteomyelitis, left ankle and foot; E11.65 Type 2 diabetes mellitus with hyperglycemia; E66.01 Morbid (severe) obesity due to excess calories; E87.1 Hypo-osmolality and hyponatremia; L03.115 Cellulitis of right lower limb; L03.116 Cellulitis of left lower limb; E11.69 Type 2 diabetes mellitus with other specified complication; E11.42 Type 2 diabetes mellitus with diabetic polyneuropathy; B19.20 Unspecified viral hepatitis C without hepatic coma; L97.509 Non-pressure chronic ulcer of other part of unspecified foot with unspecified severity; Z68.39 Body mass index [BMI] 39.0-39.9, adult; R60.0 Localized edema; F17.200 Nicotine dependence, unspecified, uncomplicated; Z96.652 Presence of left artificial knee joint; G47.33 Obstructive sleep apnea (adult) (pediatric); I10 Essential (primary) hypertension; I87.2 Venous insufficiency (chronic) (peripheral); I87.8 Other specified disorders of veins; S91.301A Unspecified open wound, right foot, initial encounter; Z53.9 Procedure and treatment not carried out, unspecified reason; Z79.4 Long term (current) use of insulin; Z82.3 Family history of stroke; Z82.49 Family history of ischemic heart disease and other diseases of the circulatory system; Z89.421 Acquired absence of other right toe(s); Z91.19 Patient's noncompliance with other medical treatment and regimen; Z23 Encounter for immunization
CPT/HCPCS: 36415; 36569; 71010; 76937; 77001; 80048; 80053; 80202; 82040; 82140; 82550; 82962; 83735; 85025; 85651; 86140; 87040; 87070; 87075; 87077; 87102; 87186; 87205; 88305; 88311; 90686; 90732; 93922; J0295; J0878; J1170; J1650; J1815; J2250; J2405; J2704; J3010; J3370; J3480; P9047; 29580-50; 29581-50; C1751; J2270; J2370; J7030; J7040

== ENCOUNTER → 2017-01-27 | Outpatient (CLI) | payer MEDICARE | END | disposition home or self-care (01) | LOC: WOUND 15:06 | PROVIDERS: ATTEND Podiatrist Foot & Ankle Surgery | DX: E11.621 Type 2 diabetes mellitus with foot ulcer (principal); L97.514 Non-pressure chronic ulcer of other part of right foot with necrosis of bone; E11.69 Type 2 diabetes mellitus with other specified complication; M86.171 Other acute osteomyelitis, right ankle and foot; I10 Essential (primary) hypertension; E11.42 Type 2 diabetes mellitus with diabetic polyneuropathy; G47.33 Obstructive sleep apnea (adult) (pediatric); E43 Unspecified severe protein-calorie malnutrition; E66.01 Morbid (severe) obesity due to excess calories; F17.210 Nicotine dependence, cigarettes, uncomplicated; Z96.652 Presence of left artificial knee joint; Z68.39 Body mass index [BMI] 39.0-39.9, adult; Z79.4 Long term (current) use of insulin; Z86.718 Personal history of other venous thrombosis and embolism; Z86.73 Personal history of transient ischemic attack (TIA), and cerebral infarction without residual deficits | CPT/HCPCS: 11044 ==

== ENCOUNTER → 2017-08-08 | Outpatient (CLI) | payer OTHER ==
[~2017-08-08] MED LIST changes: +BUME1TAB21 PO; +INSU100I28 SQ-INSULIN; +NICO-485 TD; +NYST15CR33 TP; +POLY17PO5 PO
== END ==
LOC: EDSTATUS 08-03 11:00 → CFH 10:38
PROVIDERS: ATTEND Nurse Practitioner Family
DX: K74.60 Unspecified cirrhosis of liver (principal); K80.20 Calculus of gallbladder without cholecystitis without obstruction; R16.1 Splenomegaly, not elsewhere classified
CPT/HCPCS: 76705

== ENCOUNTER 2018-07-30 15:01 | Inpatient (IN) | payer MEDICARE, MEDICAID ==
[~2018-07-30] VITALS: Ht 180.3 cm; Wt 123.5 kg
[~2018-07-30 15:01] MED LIST changes: +AMOX1TAB12 PO; +APIX5TAB PO; +DOXY100T PO; +INSU200I4 SQ; -LIDO5CRE19 TP; +LIDO5CRE26 TP; +OXYC10TA6 PO; -SPIR25TA3 PO; +SPIR25TA5 PO
--- NOTE | 2018-07-30 15:26 | NUR ---
PT BIBA FOR FOR C/O FREQUENT FALLS. REPORT TAKEN FROM EMS. PT STATES HE WAS TAKEN OFF OF OXYCODONE AND MORPHINE 4 DAYS AGO, HAS BEEN MEDICATING CHRONIC BACK PAIN AND LE NEUROPATHY WITH ETOH FOR LAST 4 DAYS. PT ALSO NOTES FREQUENT FALLS D/T NEUROPATHY IN LEGS. 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 PT DENIES HEAD INJURY, NOTES BILATERAL ELBOW PAIN WITH MOST RECENT FALL TODAY. PT TAKES ELIQUIS. PT IS A&OX4, RESPS EVEN AND UNLABORED. ALL MONITORS APPLIED. PT DID NOTE TENDERNESS TO STERNAL AREA WHEN EDPA CHUN PALPATED CHEST, NO ABD TENDERNESS/PAIN NOTED. CALL LIGHT IN REACH. PT UPDATED WITH POC.
[2018-07-30] MEDS ORDERED: HYDROmorphone 2 MG/ML, 1ML IM ONE (15:30)
[2018-07-30 15:40] LABS: BASOPHILS # (AUTO) 0.06 x10^3/uL (0-0.1); BASOPHILS % (AUTO) 1 % (0-1); EOSINOPHILS # (AUTO) 0.14 x10^3/uL (0-0.4); EOSINOPHILS % (AUTO) 2 % (1-7); LYMPHOCYTES # (AUTO) 0.81 x10^3/uL (1-3.4); LYMPHOCYTES % (AUTO) 13 % (22-44); MD NO; MEAN CORPUSCULAR HEMOGLOBIN 23.3 pg (27.5-34.5); MEAN CORPUSCULAR HGB CONC 31.2 g/dL (33.2-36.2); MEAN CORPUSCULAR VOLUME 74.7 fL (81-97); MEAN PLATELET VOLUME 9.9 fL (7.4-10.4); MONOCYTES % (AUTO) 12 % (2-9); NEUTROPHILS # (AUTO) 4.67 x10^3/uL (1.8-6.8); NEUTROPHILS % (AUTO) 72 % (42-75); PLATELET COUNT 132 x10^3/uL (130-400); RED BLOOD COUNT 4.37 x10^6/uL (4.38-5.82); RED CELL DISTRIBUTION WIDTH 21.6 % (9.4-14.8)
--- NOTE | 2018-07-30 15:43 | NUR ---
GRAY MCCOLLUM NOTIFIED PT HAD PIV PLACED DEAN OF WOMEN, ORDER RECEIVED TO CHANGE IM DILAUDID ORDER TO 1MG DILAUDID IV PUSH.
[2018-07-30 15:52] LABS: ALANINE AMINOTRANSFERASE 24 U/L (12-78); ALBUMIN 2.7 g/dL (3.4-5.0); ANION GAP 8 mmol/L (5-15); CALCIUM 8.1 mg/dL (8.5-10.1); CHLORIDE 110 mmol/L (98-107)
[2018-07-30 15:55] LABS: ALKALINE PHOSPHATASE 114 U/L (45-117); BILIRUBIN,TOTAL 0.8 mg/dL (0.2-1.0); TOTAL PROTEIN 7.9 g/dL (6.4-8.2)
--- NOTE | 2018-07-30 15:55 | NUR ---
PT TO CT
[2018-07-30] MEDS ORDERED: HYDROmorphone 1 MG/ML, 1ML INJ IV ONE ×2 (16:00)
[2018-07-30] MEDS ORDERED: HYDROmorphone 2 MG/ML, 1ML ONE (16:08)
--- NOTE | 2018-07-30 16:27 | NUR ---
PT BACK FROM CT, MEDICATED PER EMAR, TOLERATED WELL. PT NOW REPORTS PAIN LEVEL 2/10 TO LEGS. ALL MONITORS IN PLACE. AWAITING CT RESULTS AND DISPO.
[2018-07-30] MEDS ORDERED: GABA600T PO (16:53)
[2018-07-30] MEDS ORDERED: INSU200I4 SQ-INSULIN (16:53)
[2018-07-30] MEDS ORDERED: CLINDAMYCIN PMX 600MG/50ML 50 ML IVPB ONE (17:00)
[2018-07-30] MEDS ORDERED: INSULIN REGULAR 100 UNITS/ML, 3ML VIAL SQ-INSULIN ONE (17:00)
--- NOTE | 2018-07-30 17:01 | NUR ---
REPORT GIVEN TO KARIN BATISTA, PT AWAITING TRANSPORT TO ROOM 363.
[2018-07-30] MEDS ORDERED: INSULIN LISPRO 100 UNITS/ML, PEN ONE (17:29)
[2018-07-30] MEDS ORDERED: ACETAMINOPHEN 325 MG TABLET PO PRN (17:30)
[2018-07-30] MEDS ORDERED: CYCLOBENZAPRINE 10 MG TABLET PO PRN (17:30)
[2018-07-30] MEDS ORDERED: NITROGLYCERIN 0.4 MG BOTTLE (25 TABS) SL PRN (17:30)
[2018-07-30] MEDS ORDERED: ONDANSETRON 2MG/ML, 2ML IVPush PRN (17:30)
[2018-07-30] MEDS ORDERED: hydrALAzine 20 MG/ML, 1ML IVPush PRN (17:30)
--- NOTE | 2018-07-30 17:30 | NUR ---
hospitalist MD carty at bedside ; cancelled IV abx ordered previously as he does not suspect cellulitis. MD delong'd RN to admin 10 U sq humalog insulin for bg 401.
--- NOTE | 2018-07-30 17:34 | NUR ---
pt medicated per emar, tolerated well. pt a&o, resps even and unlabored, no complaint at this time.
[2018-07-30 17:42] LABS: ABSOLUTE RETICS # 0.103 x10^6/uL (0.5-1.5); RED BLOOD COUNT 4.35 x10^6/uL (4.38-5.82); RETICULOCYTE COUNT % 2.36 % (0.5-1.5)
[2018-07-30 18:04] VITALS: BP 127/78
[2018-07-30 19:29] VITALS: BP 160/80
[2018-07-30] MEDS: OXYcodone IR 5MG TABLET PO PRN (19:49)
[2018-07-30] MEDS: GABAPENTIN 400 MG CAPSULE PO SCH (20:54)
[2018-07-30] MEDS: APIXABAN 5 MG TABLET PO SCH (20:54)
[2018-07-30] MEDS: LACTULOSE 20 GM/30 ML UDC PO SCH (20:54)
[2018-07-30] MEDS: INSULIN LISPRO 100 UNITS/ML, PEN SQ-INSULIN SCH (20:56)
[2018-07-31] MEDS: OXYcodone IR 5MG TABLET PO PRN ×3 (02:20→15:33)
[2018-07-31 02:23] VITALS: BP 151/97
[2018-07-31 06:40] LABS: BASOPHILS # (AUTO) 0.06 x10^3/uL (0-0.1); BASOPHILS % (AUTO) 1 % (0-1); EOSINOPHILS # (AUTO) 0.32 x10^3/uL (0-0.4); EOSINOPHILS % (AUTO) 5 % (1-7); LYMPHOCYTES # (AUTO) 0.84 x10^3/uL (1-3.4); LYMPHOCYTES % (AUTO) 13 % (22-44); MD NO; MEAN CORPUSCULAR HEMOGLOBIN 23.3 pg (27.5-34.5); MEAN CORPUSCULAR HGB CONC 31.3 g/dL (33.2-36.2); MEAN CORPUSCULAR VOLUME 74.4 fL (81-97); MEAN PLATELET VOLUME 9.9 fL (7.4-10.4); MONOCYTES # (AUTO) 0.79 x10^3/uL (0.2-0.8); MONOCYTES % (AUTO) 12 % (2-9); NEUTROPHILS # (AUTO) 4.51 x10^3/uL (1.8-6.8); NEUTROPHILS % (AUTO) 69 % (42-75); PLATELET COUNT 123 x10^3/uL (130-400); RED BLOOD COUNT 4.47 x10^6/uL (4.38-5.82); RED CELL DISTRIBUTION WIDTH 21.6 % (9.4-14.8)
[2018-07-31 06:49] LABS: ANION GAP 7 mmol/L (5-15); CALCIUM 8.2 mg/dL (8.5-10.1); CHLORIDE 106 mmol/L (98-107); CREATININE 0.73 mg/dL (0.7-1.3)
[2018-07-31 07:50] VITALS: BP 145/82
[2018-07-31] MEDS: APIXABAN 5 MG TABLET PO SCH ×2 (08:44→20:50)
[2018-07-31] MEDS: LACTULOSE 20 GM/30 ML UDC PO SCH ×3 (08:44→20:50)
[2018-07-31] MEDS: VENLAFAXINE 75 MG CAP ER PO SCH (08:45)
[2018-07-31] MEDS: SPIRONOLACTONE 25 MG TABLET PO SCH (08:45)
[2018-07-31] MEDS: GABAPENTIN 400 MG CAPSULE PO SCH ×3 (08:45→20:50)
[2018-07-31] MEDS: INSULIN LISPRO 100 UNITS/ML, PEN SQ-INSULIN SCH ×4 (08:46→20:56)
[2018-07-31] MEDS ORDERED: INSULIN DEGLUDEC 64 UNIT SQ-INSULIN SCH (09:00)
[2018-07-31 13:52] VITALS: BP 115/76
[2018-07-31] MEDS ORDERED: POTASSIUM CHLORIDE 20 MEQ TAB.ER.PRT PO ONE (14:30)
[2018-07-31 20:06] VITALS: BP 108/63
[2018-08-01] MEDS: OXYcodone IR 5MG TABLET PO PRN ×2 (02:51→19:22)
[2018-08-01 03:22] VITALS: BP 121/58
[2018-08-01 05:52] LABS: ANION GAP 6 mmol/L (5-15); CALCIUM 8.5 mg/dL (8.5-10.1); CHLORIDE 106 mmol/L (98-107); CREATININE 0.71 mg/dL (0.7-1.3)
[2018-08-01 06:16] LABS: BASOPHILS # (AUTO) 0.04 x10^3/uL (0-0.1); BASOPHILS % (AUTO) 1 % (0-1); EOSINOPHILS # (AUTO) 0.32 x10^3/uL (0-0.4); EOSINOPHILS % (AUTO) 7 % (1-7); LYMPHOCYTES # (AUTO) 0.62 x10^3/uL (1-3.4); LYMPHOCYTES % (AUTO) 14 % (22-44); MD SCAN; MEAN CORPUSCULAR HEMOGLOBIN 23.3 pg (27.5-34.5); MEAN CORPUSCULAR HGB CONC 31.2 g/dL (33.2-36.2); MEAN CORPUSCULAR VOLUME 74.5 fL (81-97); MEAN PLATELET VOLUME 9.3 fL (7.4-10.4); MONOCYTES # (AUTO) 0.62 x10^3/uL (0.2-0.8); MONOCYTES % (AUTO) 14 % (2-9); NEUTROPHILS # (AUTO) 2.95 x10^3/uL (1.8-6.8); NEUTROPHILS % (AUTO) 65 % (42-75); RED BLOOD COUNT 4.21 x10^6/uL (4.38-5.82); RED CELL DISTRIBUTION WIDTH 21.4 % (9.4-14.8)
[2018-08-01 06:18] LABS: PLATELET COUNT 40 x10^3/uL (130-400)
[2018-08-01 07:45] VITALS: BP 147/85
[2018-08-01] MEDS: INSULIN LISPRO 100 UNITS/ML, PEN SQ-INSULIN SCH ×4 (07:57→20:58)
[2018-08-01] MEDS: APIXABAN 5 MG TABLET PO SCH ×2 (07:57→20:42)
[2018-08-01] MEDS: GABAPENTIN 400 MG CAPSULE PO SCH ×3 (07:57→20:58)
[2018-08-01] MEDS: LACTULOSE 20 GM/30 ML UDC PO SCH ×3 (07:57→20:57)
[2018-08-01] MEDS: SPIRONOLACTONE 25 MG TABLET PO SCH (07:57)
[2018-08-01] MEDS: VENLAFAXINE 75 MG CAP ER PO SCH (07:57)
[2018-08-01 08:20] LABS: MEAN CORPUSCULAR HEMOGLOBIN 23.5 pg (27.5-34.5); MEAN CORPUSCULAR HGB CONC 31.6 g/dL (33.2-36.2); MEAN CORPUSCULAR VOLUME 74.2 fL (81-97); MEAN PLATELET VOLUME 10.1 fL (7.4-10.4); PLATELET COUNT 125 x10^3/uL (130-400); RED BLOOD COUNT 4.56 x10^6/uL (4.38-5.82); RED CELL DISTRIBUTION WIDTH 21.6 % (9.4-14.8)
[2018-08-01 08:22] LABS: BASOPHILS # (AUTO) 0.05 x10^3/uL (0-0.1); BASOPHILS % (AUTO) 1 % (0-1); EOSINOPHILS # (AUTO) 0.44 x10^3/uL (0-0.4); EOSINOPHILS % (AUTO) 8 % (1-7); LYMPHOCYTES # (AUTO) 0.94 x10^3/uL (1-3.4); LYMPHOCYTES % (AUTO) 16 % (22-44); MD SCAN; MONOCYTES # (AUTO) 0.96 x10^3/uL (0.2-0.8); MONOCYTES % (AUTO) 17 % (2-9); NEUTROPHILS # (AUTO) 3.45 x10^3/uL (1.8-6.8); NEUTROPHILS % (AUTO) 59 % (42-75)
[2018-08-01] MEDS ORDERED: INSULIN GLARGINE 100 UNITS/ML, PEN SQ-INSULIN SCH ×2 (10:00→21:00)
[2018-08-01] MEDS: POLYETHYLENE GLYCOL 17 GM PACKET PO PRN (12:02)
[2018-08-01] MEDS: DOCUSATE 100 MG CAPSULE PO PRN ×2 (12:02→16:46)
[2018-08-01 13:09] VITALS: BP 137/80
[2018-08-01] MEDS ORDERED: BISACODYL 10 MG SUPP PR ONE (17:00)
[2018-08-01 19:04] VITALS: BP 144/81
[2018-08-01 19:43] LABS: OCCULT BLOOD POSITIVE (NEGATIVE)
[2018-08-02 01:11] VITALS: BP 121/56
[2018-08-02] MEDS: INSULIN LISPRO 100 UNITS/ML, PEN SQ-INSULIN SCH ×4 (07:31→22:12)
[2018-08-02] MEDS: OXYcodone IR 5MG TABLET PO PRN ×2 (07:31→13:57)
[2018-08-02] MEDS: APIXABAN 5 MG TABLET PO SCH ×2 (09:00→21:00)
[2018-08-02 09:59] VITALS: BP 122/78
[2018-08-02] MEDS: GABAPENTIN 400 MG CAPSULE PO SCH ×3 (10:11→22:02)
[2018-08-02] MEDS: LACTULOSE 20 GM/30 ML UDC PO SCH ×3 (10:12→22:03)
[2018-08-02] MEDS: VENLAFAXINE 75 MG CAP ER PO SCH (10:12)
[2018-08-02] MEDS: SPIRONOLACTONE 25 MG TABLET PO SCH (10:14)
[2018-08-02] MEDS: IRON SUCROSE COMPLEX 100MG/5ML IV SCH (10:16)
[2018-08-02] MEDS: INSULIN GLARGINE 100 UNITS/ML, PEN SQ-INSULIN SCH ×2 (10:27→22:12)
[2018-08-02] MEDS: POLYETHYLENE GLYCOL 17 GM PACKET PO PRN (10:36)
[2018-08-02 12:44] LABS: INTERNATIONAL NORMALIZED RATIO 1.09 (0.93-1.1); PROTHROMBIN TIME 11.4 Seconds (9.6-11.5)
[2018-08-02 14:46] VITALS: BP 134/84
[2018-08-02] MEDS ORDERED: GOLYTELY 4,000ML ORAL.SOL PO ONE (18:00)
[2018-08-02 20:40] VITALS: BP 154/80
[2018-08-02] MEDS ORDERED: INSULIN GLARGINE 100 UNITS/ML, PEN SQ-INSULIN SCH (21:00)
[2018-08-03 01:57] VITALS: BP 104/37
[2018-08-03 05:48] LABS: ANION GAP 5 mmol/L (5-15); CALCIUM 7.7 mg/dL (8.5-10.1); CHLORIDE 107 mmol/L (98-107); CREATININE 0.63 mg/dL (0.7-1.3)
[2018-08-03 05:55] LABS: MEAN CORPUSCULAR HEMOGLOBIN 23.6 pg (27.5-34.5); MEAN CORPUSCULAR HGB CONC 31.8 g/dL (33.2-36.2); MEAN CORPUSCULAR VOLUME 74.1 fL (81-97); RED BLOOD COUNT 3.84 x10^6/uL (4.38-5.82); RED CELL DISTRIBUTION WIDTH 21.5 % (9.4-14.8)
[2018-08-03 06:17] LABS: MEAN PLATELET VOLUME 10.8 fL (7.4-10.4); PLATELET COUNT 97 x10^3/uL (130-400)
[2018-08-03 06:19] LABS: BASOPHILS # (AUTO) 0.02 x10^3/uL (0-0.1); BASOPHILS % (AUTO) 1 % (0-1); EOSINOPHILS % (AUTO) 6 % (1-7); LYMPHOCYTES # (AUTO) 0.39 x10^3/uL (1-3.4); LYMPHOCYTES % (AUTO) 11 % (22-44); MD SCAN; MONOCYTES # (AUTO) 0.55 x10^3/uL (0.2-0.8); MONOCYTES % (AUTO) 16 % (2-9); NEUTROPHILS # (AUTO) 2.37 x10^3/uL (1.8-6.8); NEUTROPHILS % (AUTO) 67 % (42-75)
[2018-08-03] MEDS: OXYcodone IR 5MG TABLET PO PRN ×3 (06:37→23:53)
[2018-08-03] MEDS: INSULIN LISPRO 100 UNITS/ML, PEN SQ-INSULIN SCH ×4 (07:00→20:39)
[2018-08-03] MEDS: VENLAFAXINE 75 MG CAP ER PO SCH (08:07)
[2018-08-03] MEDS: SPIRONOLACTONE 25 MG TABLET PO SCH (08:07)
[2018-08-03] MEDS: GABAPENTIN 400 MG CAPSULE PO SCH ×3 (08:07→20:36)
[2018-08-03] MEDS: APIXABAN 5 MG TABLET PO SCH ×2 (08:07→20:36)
[2018-08-03] MEDS: LACTULOSE 20 GM/30 ML UDC PO SCH ×3 (08:07→20:36)
[2018-08-03 08:08] VITALS: BP 143/91
[2018-08-03] MEDS: IRON SUCROSE COMPLEX 100MG/5ML IV SCH (09:50)
[2018-08-03] MEDS: INSULIN GLARGINE 100 UNITS/ML, PEN SQ-INSULIN SCH ×2 (09:51→20:39)
[2018-08-03] MEDS ORDERED: PHENYLEPHRINE 10 MG/ML ONE (13:35)
[2018-08-03] MEDS ORDERED: PROPOFOL 10 MG/ML, 50ML ONE (13:35)
[2018-08-03 19:39] VITALS: BP 132/76
[2018-08-04 00:52] VITALS: BP 117/71
[2018-08-04 05:35] LABS: MEAN CORPUSCULAR HEMOGLOBIN 23.4 pg (27.5-34.5); MEAN CORPUSCULAR HGB CONC 31.5 g/dL (33.2-36.2); MEAN CORPUSCULAR VOLUME 74.1 fL (81-97); MEAN PLATELET VOLUME 9.1 fL (7.4-10.4); PLATELET COUNT 83 x10^3/uL (130-400); RED BLOOD COUNT 4.03 x10^6/uL (4.38-5.82)
[2018-08-04 05:37] LABS: ANION GAP 8 mmol/L (5-15); CALCIUM 8.1 mg/dL (8.5-10.1); CHLORIDE 104 mmol/L (98-107)
[2018-08-04 05:38] LABS: CREATININE 0.72 mg/dL (0.7-1.3)
[2018-08-04 06:08] LABS: BASOPHILS # (AUTO) 0.01 x10^3/uL (0-0.1); BASOPHILS % (AUTO) 0 % (0-1); EOSINOPHILS # (AUTO) 0.11 x10^3/uL (0-0.4); EOSINOPHILS % (AUTO) 2 % (1-7); LYMPHOCYTES % (AUTO) 8 % (22-44); MD SCAN; MONOCYTES # (AUTO) 1.02 x10^3/uL (0.2-0.8); MONOCYTES % (AUTO) 16 % (2-9); NEUTROPHILS # (AUTO) 4.77 x10^3/uL (1.8-6.8); NEUTROPHILS % (AUTO) 74 % (42-75)
[2018-08-04] MEDS: OXYcodone IR 5MG TABLET PO PRN ×3 (06:38→17:59)
[2018-08-04] MEDS: INSULIN LISPRO 100 UNITS/ML, PEN SQ-INSULIN SCH ×3 (07:00→16:00)
[2018-08-04] MEDS ORDERED: POTASSIUM CHLORIDE 20 MEQ TAB.ER.PRT PO ONE (07:30)
[2018-08-04 08:27] VITALS: BP 129/78
[2018-08-04] MEDS: LACTULOSE 20 GM/30 ML UDC PO SCH ×2 (09:00→16:00)
[2018-08-04] MEDS: APIXABAN 5 MG TABLET PO SCH (09:00)
[2018-08-04] MEDS: VENLAFAXINE 75 MG CAP ER PO SCH (10:26)
[2018-08-04] MEDS: SPIRONOLACTONE 25 MG TABLET PO SCH (10:26)
[2018-08-04] MEDS: GABAPENTIN 400 MG CAPSULE PO SCH ×2 (10:26→17:58)
[2018-08-04] MEDS: IRON SUCROSE COMPLEX 100MG/5ML IV SCH (10:26)
[2018-08-04] MEDS: INSULIN GLARGINE 100 UNITS/ML, PEN SQ-INSULIN SCH (10:27)
[2018-08-04 14:46] VITALS: BP 110/64
[2018-08-04] MEDS ORDERED: OXYC10TA6 PO (16:09)
[2018-08-04] MEDS ORDERED: MORP30TA3 PO (16:09)
[2018-08-04] MEDS ORDERED: INSU200I4 SQ-INSULIN (16:09)
[2018-08-07] MEDS ORDERED: FERR-51 PO (17:48)
== END 2018-08-04 18:40 | disposition home or self-care (01) | DRG 368 ==
LOC: ED 15:43 → EDIP 16:36 → 3NE 17:46
PROVIDERS: ADMIT Hospitalist; ATTEND Hospitalist
PROC: 0DBM8ZZ Excision of Descending Colon, Via Natural or Artificial Opening Endoscopic (ICD-10-PCS; 2018-08-03)
PROC: 0DBP8ZZ Excision of Rectum, Via Natural or Artificial Opening Endoscopic (ICD-10-PCS; 2018-08-03)
PROC: 06L38CZ Occlusion of Esophageal Vein with Extraluminal Device, Via Natural or Artificial Opening Endoscopic (ICD-10-PCS; principal; 2018-08-03 13:30)
DX: I85.00 Esophageal varices without bleeding (principal); E43 Unspecified severe protein-calorie malnutrition; F11.23 Opioid dependence with withdrawal; D68.9 Coagulation defect, unspecified; K76.6 Portal hypertension; L03.115 Cellulitis of right lower limb; L97.909 Non-pressure chronic ulcer of unspecified part of unspecified lower leg with unspecified severity; M48.50XA Collapsed vertebra, not elsewhere classified, site unspecified, initial encounter for fracture; B19.20 Unspecified viral hepatitis C without hepatic coma; D50.9 Iron deficiency anemia, unspecified; D69.6 Thrombocytopenia, unspecified; E11.21 Type 2 diabetes mellitus with diabetic nephropathy; E11.65 Type 2 diabetes mellitus with hyperglycemia; E66.9 Obesity, unspecified; Z68.38 Body mass index [BMI] 38.0-38.9, adult; E86.0 Dehydration; F10.10 Alcohol abuse, uncomplicated; F17.210 Nicotine dependence, cigarettes, uncomplicated; E11.42 Type 2 diabetes mellitus with diabetic polyneuropathy; G47.33 Obstructive sleep apnea (adult) (pediatric); I10 Essential (primary) hypertension; K31.89 Other diseases of stomach and duodenum; K57.30 Diverticulosis of large intestine without perforation or abscess without bleeding; K74.60 Unspecified cirrhosis of liver; Z96.659 Presence of unspecified artificial knee joint; W18.30XA Fall on same level, unspecified, initial encounter; Y92.008 Other place in unspecified non-institutional (private) residence as the place of occurrence of the external cause; Y93.89 Activity, other specified; Z86.718 Personal history of other venous thrombosis and embolism; Z86.010 Personal history of colon polyps; Z80.8 Family history of malignant neoplasm of other organs or systems; Z79.4 Long term (current) use of insulin; Z82.3 Family history of stroke; Z88.8 Allergy status to other drugs, medicaments and biological substances
CPT/HCPCS: 36415; 70450; 71045; 76705; 80048; 80053; 82105; 82272; 82728; 82962; 83540; 83550; 83735; 84100; 85025; 85045; 85610; 88305; 93005; 96372; 96374; 99285; G0378; J1170; J1756; J2704; 29580-50; 29581-50; J1815; J2370

== ENCOUNTER 2019-04-16 13:11 | Outpatient (CLI) | payer MEDICARE ==
[~2019-04-16 13:11] MED LIST changes: +AMLO-150 PO; +FERR-51 PO; +GABA600T PO; +INSU200I4 SQ-INSULIN; +MORP-30 PO
[2019-04-20] MEDS ORDERED: DULA0.75 SQ (13:51)
== END 2019-04-16 23:59 | disposition home or self-care (01) ==
LOC: WOUND 13:11
PROVIDERS: ATTEND Internal Medicine
DX: E11.621 Type 2 diabetes mellitus with foot ulcer (principal); L97.412 Non-pressure chronic ulcer of right heel and midfoot with fat layer exposed; E11.42 Type 2 diabetes mellitus with diabetic polyneuropathy; E11.65 Type 2 diabetes mellitus with hyperglycemia; E11.69 Type 2 diabetes mellitus with other specified complication; M86.171 Other acute osteomyelitis, right ankle and foot; B19.20 Unspecified viral hepatitis C without hepatic coma; E66.9 Obesity, unspecified; F17.200 Nicotine dependence, unspecified, uncomplicated; L84 Corns and callosities; I10 Essential (primary) hypertension; G47.33 Obstructive sleep apnea (adult) (pediatric); I87.2 Venous insufficiency (chronic) (peripheral); E43 Unspecified severe protein-calorie malnutrition; K74.60 Unspecified cirrhosis of liver; Z68.41 Body mass index [BMI] 40.0-44.9, adult; Z89.421 Acquired absence of other right toe(s); Z91.19 Patient's noncompliance with other medical treatment and regimen; Z96.652 Presence of left artificial knee joint; Z86.718 Personal history of other venous thrombosis and embolism; Z79.4 Long term (current) use of insulin
CPT/HCPCS: 11042; 99215

== ENCOUNTER 2019-04-23 13:20 | Outpatient (CLI) | payer MEDICARE ==
[~2019-04-23 13:20] MED LIST changes: +DULA0.75 SQ
== END 2019-04-23 23:59 | disposition home or self-care (01) ==
LOC: WOUND 13:20
PROVIDERS: ATTEND Internal Medicine
DX: E11.621 Type 2 diabetes mellitus with foot ulcer (principal); L97.512 Non-pressure chronic ulcer of other part of right foot with fat layer exposed; E11.69 Type 2 diabetes mellitus with other specified complication; M86.171 Other acute osteomyelitis, right ankle and foot; E11.42 Type 2 diabetes mellitus with diabetic polyneuropathy; I10 Essential (primary) hypertension; I87.2 Venous insufficiency (chronic) (peripheral); I89.0 Lymphedema, not elsewhere classified; E66.9 Obesity, unspecified; G47.33 Obstructive sleep apnea (adult) (pediatric); G89.29 Other chronic pain; K74.60 Unspecified cirrhosis of liver; K76.6 Portal hypertension; K31.89 Other diseases of stomach and duodenum; B18.2 Chronic viral hepatitis C; F17.210 Nicotine dependence, cigarettes, uncomplicated; Z88.2 Allergy status to sulfonamides; Z79.4 Long term (current) use of insulin; Z96.652 Presence of left artificial knee joint; Z68.41 Body mass index [BMI] 40.0-44.9, adult; Z86.718 Personal history of other venous thrombosis and embolism; Z85.89 Personal history of malignant neoplasm of other organs and systems; Z91.19 Patient's noncompliance with other medical treatment and regimen; Z89.421 Acquired absence of other right toe(s)
CPT/HCPCS: 11042; 29581

== ENCOUNTER 2019-04-30 13:20 | Outpatient (CLI) | payer MEDICARE | END 2019-04-30 23:59 | disposition home or self-care (01) | LOC: WOUND 13:20 | PROVIDERS: ATTEND Internal Medicine | DX: E11.621 Type 2 diabetes mellitus with foot ulcer (principal); L97.512 Non-pressure chronic ulcer of other part of right foot with fat layer exposed; L84 Corns and callosities; E11.69 Type 2 diabetes mellitus with other specified complication; M86.171 Other acute osteomyelitis, right ankle and foot; E11.42 Type 2 diabetes mellitus with diabetic polyneuropathy; I10 Essential (primary) hypertension; I87.2 Venous insufficiency (chronic) (peripheral); I89.0 Lymphedema, not elsewhere classified; E66.9 Obesity, unspecified; G47.33 Obstructive sleep apnea (adult) (pediatric); G89.29 Other chronic pain; K31.89 Other diseases of stomach and duodenum; K74.60 Unspecified cirrhosis of liver; K72.90 Hepatic failure, unspecified without coma; B18.2 Chronic viral hepatitis C; F17.210 Nicotine dependence, cigarettes, uncomplicated; Z89.421 Acquired absence of other right toe(s); Z79.4 Long term (current) use of insulin; Z96.652 Presence of left artificial knee joint; Z91.19 Patient's noncompliance with other medical treatment and regimen; Z88.2 Allergy status to sulfonamides; Z68.41 Body mass index [BMI] 40.0-44.9, adult; Z86.718 Personal history of other venous thrombosis and embolism; Z85.89 Personal history of malignant neoplasm of other organs and systems | CPT/HCPCS: 29581; 97597 ==

== ENCOUNTER 2019-05-07 14:30 | Outpatient (CLI) | payer MEDICARE | END 2019-05-07 23:59 | disposition home or self-care (01) | LOC: WOUND 14:30 | PROVIDERS: ATTEND Internal Medicine | DX: E11.621 Type 2 diabetes mellitus with foot ulcer (principal); L97.512 Non-pressure chronic ulcer of other part of right foot with fat layer exposed; L84 Corns and callosities; E11.69 Type 2 diabetes mellitus with other specified complication; M86.171 Other acute osteomyelitis, right ankle and foot; E11.42 Type 2 diabetes mellitus with diabetic polyneuropathy; I10 Essential (primary) hypertension; I87.2 Venous insufficiency (chronic) (peripheral); I89.0 Lymphedema, not elsewhere classified; E66.9 Obesity, unspecified; G47.33 Obstructive sleep apnea (adult) (pediatric); G89.29 Other chronic pain; K31.89 Other diseases of stomach and duodenum; K74.60 Unspecified cirrhosis of liver; K72.90 Hepatic failure, unspecified without coma; B18.2 Chronic viral hepatitis C; F17.210 Nicotine dependence, cigarettes, uncomplicated; Z79.4 Long term (current) use of insulin; Z96.652 Presence of left artificial knee joint; Z88.2 Allergy status to sulfonamides; Z68.41 Body mass index [BMI] 40.0-44.9, adult; Z91.19 Patient's noncompliance with other medical treatment and regimen; Z89.421 Acquired absence of other right toe(s); Z86.718 Personal history of other venous thrombosis and embolism; Z85.89 Personal history of malignant neoplasm of other organs and systems | CPT/HCPCS: 11042; 29581 ==

== ENCOUNTER 2019-05-14 14:45 | Outpatient (CLI) | payer MEDICARE | END 2019-05-14 23:59 | disposition home or self-care (01) | LOC: WOUND 14:45 | PROVIDERS: ATTEND Internal Medicine | DX: E11.621 Type 2 diabetes mellitus with foot ulcer (principal); L97.512 Non-pressure chronic ulcer of other part of right foot with fat layer exposed; L84 Corns and callosities; E11.69 Type 2 diabetes mellitus with other specified complication; M86.171 Other acute osteomyelitis, right ankle and foot; E11.42 Type 2 diabetes mellitus with diabetic polyneuropathy; I10 Essential (primary) hypertension; I87.2 Venous insufficiency (chronic) (peripheral); I89.0 Lymphedema, not elsewhere classified; E66.9 Obesity, unspecified; G47.33 Obstructive sleep apnea (adult) (pediatric); G89.29 Other chronic pain; K31.89 Other diseases of stomach and duodenum; K74.60 Unspecified cirrhosis of liver; K72.90 Hepatic failure, unspecified without coma; B18.2 Chronic viral hepatitis C; F17.210 Nicotine dependence, cigarettes, uncomplicated; Z79.4 Long term (current) use of insulin; Z96.652 Presence of left artificial knee joint; Z68.41 Body mass index [BMI] 40.0-44.9, adult; Z91.19 Patient's noncompliance with other medical treatment and regimen; Z86.718 Personal history of other venous thrombosis and embolism; Z88.2 Allergy status to sulfonamides; Z89.421 Acquired absence of other right toe(s); Z85.89 Personal history of malignant neoplasm of other organs and systems; K76.6 Portal hypertension | CPT/HCPCS: 97597 ==

== ENCOUNTER → 2019-05-17 | Outpatient (CLI) | payer MEDICARE ==
[~2019-05-17] MED LIST changes: +ALPRazolam 1MG TAB ONE
== END | disposition home or self-care (01) ==
LOC: RAD 08:40
PROVIDERS: ATTEND Internal Medicine Infectious Disease
DX: L03.115 Cellulitis of right lower limb (principal); R60.0 Localized edema; R23.4 Changes in skin texture

== ENCOUNTER → 2019-05-21 | Outpatient (CLI) | payer MEDICARE ==
[~2019-05-21] MED LIST changes: -ALPRazolam 1MG TAB ONE
== END | disposition home or self-care (01) ==
LOC: WOUND 15:07
PROVIDERS: ATTEND Internal Medicine
DX: E11.621 Type 2 diabetes mellitus with foot ulcer (principal); L97.411 Non-pressure chronic ulcer of right heel and midfoot limited to breakdown of skin; E11.69 Type 2 diabetes mellitus with other specified complication; M86.171 Other acute osteomyelitis, right ankle and foot; E11.42 Type 2 diabetes mellitus with diabetic polyneuropathy; I10 Essential (primary) hypertension; I87.2 Venous insufficiency (chronic) (peripheral); I89.0 Lymphedema, not elsewhere classified; E66.9 Obesity, unspecified; G47.33 Obstructive sleep apnea (adult) (pediatric); G89.29 Other chronic pain; K74.60 Unspecified cirrhosis of liver; K76.6 Portal hypertension; K31.89 Other diseases of stomach and duodenum; B18.2 Chronic viral hepatitis C; F17.210 Nicotine dependence, cigarettes, uncomplicated; Z88.2 Allergy status to sulfonamides; Z79.4 Long term (current) use of insulin; Z96.652 Presence of left artificial knee joint; Z85.89 Personal history of malignant neoplasm of other organs and systems; Z91.19 Patient's noncompliance with other medical treatment and regimen; Z89.421 Acquired absence of other right toe(s)
CPT/HCPCS: 97597

== ENCOUNTER → 2019-05-28 | Outpatient (CLI) | payer MEDICARE | END | disposition home or self-care (01) | LOC: WOUND 15:08 | PROVIDERS: ATTEND Internal Medicine | DX: E11.621 Type 2 diabetes mellitus with foot ulcer (principal); L97.411 Non-pressure chronic ulcer of right heel and midfoot limited to breakdown of skin; E11.69 Type 2 diabetes mellitus with other specified complication; M86.171 Other acute osteomyelitis, right ankle and foot; E11.42 Type 2 diabetes mellitus with diabetic polyneuropathy; I10 Essential (primary) hypertension; I87.2 Venous insufficiency (chronic) (peripheral); I89.0 Lymphedema, not elsewhere classified; E66.9 Obesity, unspecified; G47.33 Obstructive sleep apnea (adult) (pediatric); G89.29 Other chronic pain; K74.60 Unspecified cirrhosis of liver; K76.6 Portal hypertension; K31.89 Other diseases of stomach and duodenum; B18.2 Chronic viral hepatitis C; F17.210 Nicotine dependence, cigarettes, uncomplicated; Z88.2 Allergy status to sulfonamides; Z79.4 Long term (current) use of insulin; Z96.652 Presence of left artificial knee joint; Z85.89 Personal history of malignant neoplasm of other organs and systems; Z91.19 Patient's noncompliance with other medical treatment and regimen; Z89.421 Acquired absence of other right toe(s) | CPT/HCPCS: 11042 ==

== ENCOUNTER → 2019-06-18 | Outpatient (CLI) | payer MEDICARE ==
[~2019-06-18] MED LIST changes: +FERR324T5 PO; +LACT10SO28 PO
== END | disposition home or self-care (01) ==
LOC: WOUND 13:24
PROVIDERS: ATTEND Internal Medicine
DX: E11.621 Type 2 diabetes mellitus with foot ulcer (principal); L97.512 Non-pressure chronic ulcer of other part of right foot with fat layer exposed; L84 Corns and callosities; E11.69 Type 2 diabetes mellitus with other specified complication; M86.171 Other acute osteomyelitis, right ankle and foot; E11.42 Type 2 diabetes mellitus with diabetic polyneuropathy; E66.9 Obesity, unspecified; I10 Essential (primary) hypertension; I87.2 Venous insufficiency (chronic) (peripheral); I89.0 Lymphedema, not elsewhere classified; G47.33 Obstructive sleep apnea (adult) (pediatric); G89.29 Other chronic pain; K31.89 Other diseases of stomach and duodenum; K74.60 Unspecified cirrhosis of liver; B18.2 Chronic viral hepatitis C; F17.210 Nicotine dependence, cigarettes, uncomplicated; Z68.41 Body mass index [BMI] 40.0-44.9, adult; Z89.421 Acquired absence of other right toe(s); Z79.4 Long term (current) use of insulin; Z96.652 Presence of left artificial knee joint; Z88.2 Allergy status to sulfonamides; Z85.89 Personal history of malignant neoplasm of other organs and systems; Z91.19 Patient's noncompliance with other medical treatment and regimen; Z86.718 Personal history of other venous thrombosis and embolism
CPT/HCPCS: 11042

== ENCOUNTER 2019-06-20 13:05 | Inpatient (IN) | payer MEDICARE ==
[~2019-06-20] VITALS: Ht 172.7 cm; Wt 133.5 kg
[~2019-06-20 13:05] MED LIST changes: -FERR324T5 PO; -LACT10SO28 PO
[2019-06-20] MEDS ORDERED: ACETAMINOPHEN 500 MG TABLET PO ONE (13:30)
[2019-06-20] MEDS ORDERED: ACETAMINOPHEN 500 MG TABLET ONE (13:55)
[2019-06-20] MEDS ORDERED: SODIUM CHLORIDE 0.9% 1,000ML IVBOLUS ONE (14:00)
[2019-06-20] MEDS ORDERED: VANCOMYCIN PER PHARMACY MC PRN (14:00)
[2019-06-20] MEDS ORDERED: FERR324T5 PO (14:04)
[2019-06-20 14:17] LABS: ALANINE AMINOTRANSFERASE 34 U/L (12-78); ALBUMIN 2.5 g/dL (3.4-5.0); ANION GAP 8 mmol/L (5-15); CALCIUM 8.3 mg/dL (8.5-10.1); CHLORIDE 103 mmol/L (98-107)
[2019-06-20 14:19] LABS: RAPID INFLUENZA A Negative (Negative); RAPID INFLUENZA B Negative (Negative)
[2019-06-20 14:19] LABS: ALKALINE PHOSPHATASE 148 U/L (45-117); BILIRUBIN,TOTAL 1.6 mg/dL (0.2-1.0); CREATININE 0.68 mg/dL (0.7-1.3); TOTAL PROTEIN 8.1 g/dL (6.4-8.2)
[2019-06-20] MEDS ORDERED: VANCOMYCIN 2,200 MG in SODIUM CHLORIDE 0.9% 500 ML IV ONE (14:30)
[2019-06-20 14:44] LABS: BASOPHILS % (AUTO) 0 % (0-1); EOSINOPHILS # (AUTO) 0.03 x10^3/uL (0-0.4); EOSINOPHILS % (AUTO) 0 % (1-7); LYMPHOCYTES # (AUTO) 0.36 x10^3/uL (1-3.4); LYMPHOCYTES % (AUTO) 4 % (22-44); MD SCAN; MEAN CORPUSCULAR HEMOGLOBIN 33.8 pg (27.5-34.5); MEAN CORPUSCULAR HGB CONC 34.1 g/dL (33.2-36.2); MEAN CORPUSCULAR VOLUME 99.2 fL (81-97); MEAN PLATELET VOLUME 9.9 fL (7.4-10.4); MONOCYTES # (AUTO) 0.58 x10^3/uL (0.2-0.8); MONOCYTES % (AUTO) 7 % (2-9); NEUTROPHILS # (AUTO) 7.32 x10^3/uL (1.8-6.8); NEUTROPHILS % (AUTO) 88 % (42-75); PLATELET COUNT 64 x10^3/uL (130-400); RED BLOOD COUNT 4.59 x10^6/uL (4.38-5.82); RED CELL DISTRIBUTION WIDTH 15.4 % (9.4-14.8)
[2019-06-20] MEDS ORDERED: LACT10SO28 PO (15:20)
[2019-06-20] MEDS ORDERED: POTASSIUM CHLORIDE 40 MEQ in SODIUM CHLORIDE 0.9% 500 ML IV ONE (16:00)
--- NOTE | 2019-06-20 16:01 | NUR ---
URINE COLLECTED AND SENT TO LAB.
[2019-06-20 16:20] LABS: CULTURE INDICATED? YES; MICROSCOPIC INDICATED
--- NOTE | 2019-06-20 16:28 | NUR ---
SBAR TELEHPHONE HAND-OFF REPORT GIVEN TO KARIN GROVES IN ICU.
[2019-06-20] MEDS: LACTULOSE 20 GM/30 ML UDC PO SCH ×2 (16:30→21:40)
--- NOTE | 2019-06-20 16:54 | NUR ---
TRANSPORTED THIS PT THE "CLEAN" TECH.
[2019-06-20] MEDS ORDERED: POLYETHYLENE GLYCOL 17 GM PACKET PO PRN (17:00)
[2019-06-20] MEDS ORDERED: morphine SULFATE 10 MG/ML, 1ML IVPush PRN (17:30)
[2019-06-20] MEDS ORDERED: hydrALAzine 20 MG/ML, 1ML IVPush PRN (17:30)
[2019-06-20] MEDS ORDERED: ACETAMINOPHEN 325 MG TABLET PO PRN (17:30)
[2019-06-20] MEDS: HEPARIN 5,000 UNITS/ML, 1ML SQ SCH (17:38)
[2019-06-20] MEDS: SODIUM CHLORIDE 0.9% 1,000 ML IV SCH (17:44)
[2019-06-20 17:46] LABS: FREE T4 (FREE THYROXINE) 1.11 ng/dL (0.76-1.46)
[2019-06-20 17:52] VITALS: BP 150/70
[2019-06-20 18:34] LABS: HCT (SEDRATE) 45.5 % (39.2-51.8)
[2019-06-20] MEDS ORDERED: LACTULOSE 10 GM/15 ML UDC PO SCH (21:00)
[2019-06-20] MEDS ORDERED: FERROUS SULFATE 325 MG TABLET PO SCH (21:00)
[2019-06-20] MEDS ORDERED: TEMPLATE NON-FORMULARY MED. (Insulin Lispro** (Humalog**) 0 UNITS) SQ-INSULIN SCH (21:00)
[2019-06-20] MEDS: DAPTOMYCIN 725 MG in SODIUM CHLORIDE 0.9% 100 ML IV SCH (21:39)
[2019-06-20] MEDS: GABAPENTIN 400 MG CAPSULE PO SCH (21:40)
[2019-06-20] MEDS: OXYcodone IR 5MG TABLET PO PRN (21:41)
[2019-06-20 21:46] VITALS: BP 158/79
[2019-06-20] MEDS: INSULIN LISPRO 100 UNITS/ML, PEN SQ-INSULIN SCH (22:19)
[2019-06-21 01:00] VITALS: BP 151/78
[2019-06-21] MEDS: HEPARIN 5,000 UNITS/ML, 1ML SQ SCH ×3 (01:03→16:42)
[2019-06-21] MEDS: OXYcodone IR 5MG TABLET PO PRN ×2 (02:50→21:24)
[2019-06-21] MEDS: SODIUM CHLORIDE 0.9% 1,000 ML IV SCH (02:52)
[2019-06-21] MEDS: LACTULOSE 20 GM/30 ML UDC PO SCH ×4 (05:05→21:15)
[2019-06-21 05:37] LABS: ANION GAP 6 mmol/L (5-15); CALCIUM 7.6 mg/dL (8.5-10.1); CHLORIDE 110 mmol/L (98-107); CREATININE 0.53 mg/dL (0.7-1.3)
[2019-06-21 05:44] LABS: MEAN CORPUSCULAR HEMOGLOBIN 33.8 pg (27.5-34.5); MEAN CORPUSCULAR HGB CONC 33.9 g/dL (33.2-36.2); MEAN CORPUSCULAR VOLUME 99.8 fL (81-97); RED BLOOD COUNT 4.15 x10^6/uL (4.38-5.82); RED CELL DISTRIBUTION WIDTH 15.6 % (9.4-14.8)
[2019-06-21 06:17] LABS: BASOPHILS % (AUTO) 0 % (0-1); EOSINOPHILS # (AUTO) 0.08 x10^3/uL (0-0.4); EOSINOPHILS % (AUTO) 1 % (1-7); LYMPHOCYTES # (AUTO) 0.53 x10^3/uL (1-3.4); LYMPHOCYTES % (AUTO) 6 % (22-44); MD SCAN; MEAN PLATELET VOLUME 9.4 fL (7.4-10.4); MONOCYTES # (AUTO) 1.07 x10^3/uL (0.2-0.8); MONOCYTES % (AUTO) 12 % (2-9); NEUTROPHILS # (AUTO) 7.01 x10^3/uL (1.8-6.8); NEUTROPHILS % (AUTO) 81 % (42-75); PLATELET COUNT 60 x10^3/uL (130-400)
[2019-06-21] MEDS ORDERED: POTASSIUM CHLORIDE 40 MEQ in SODIUM CHLORIDE 0.9% 500 ML IV ONE (06:30)
[2019-06-21] MEDS ORDERED: POTASSIUM CHLORIDE 20 MEQ TAB.ER.PRT PO ONE (06:30)
[2019-06-21] MEDS: INSULIN LISPRO 100 UNITS/ML, PEN SQ-INSULIN SCH ×4 (07:00→21:16)
[2019-06-21 08:00] VITALS: BP 133/77
[2019-06-21] MEDS: AMLODIPINE 10 MG TAB PO SCH (08:51)
[2019-06-21] MEDS: VENLAFAXINE 75 MG CAP ER PO SCH (08:51)
[2019-06-21] MEDS: GABAPENTIN 400 MG CAPSULE PO SCH ×3 (08:51→21:15)
[2019-06-21] MEDS: PANTOPRAZOLE 40MG TABLET PO SCH (08:51)
[2019-06-21] MEDS ORDERED: LACTULOSE 20 GM/30 ML UDC PO SCH (09:00)
[2019-06-21] MEDS ORDERED: CEFTRIAXONE PMX 1GM/50ML 50 ML IV SCH (11:00)
[2019-06-21 14:00] VITALS: BP 148/77
[2019-06-21 19:51] VITALS: BP 157/69
[2019-06-21] MEDS: FERROUS SULFATE 325 MG TABLET PO SCH (21:15)
[2019-06-21] MEDS: DAPTOMYCIN 725 MG in SODIUM CHLORIDE 0.9% 100 ML IV SCH (21:23)
[2019-06-22 01:13] VITALS: BP 160/85
[2019-06-22] MEDS: HEPARIN 5,000 UNITS/ML, 1ML SQ SCH ×3 (01:19→17:38)
[2019-06-22] MEDS: LACTULOSE 20 GM/30 ML UDC PO SCH ×4 (05:09→20:22)
[2019-06-22 06:12] LABS: D-DIMER 1.71 ug/mlFEU (0.00-0.52); INTERNATIONAL NORMALIZED RATIO 1.13 (0.93-1.1)
[2019-06-22 06:13] LABS: ANION GAP 7 mmol/L (5-15); CALCIUM 7.9 mg/dL (8.5-10.1); CHLORIDE 109 mmol/L (98-107)
[2019-06-22 06:15] LABS: MEAN CORPUSCULAR HEMOGLOBIN 33.9 pg (27.5-34.5); MEAN CORPUSCULAR HGB CONC 33.9 g/dL (33.2-36.2); RED BLOOD COUNT 4.31 x10^6/uL (4.38-5.82); RED CELL DISTRIBUTION WIDTH 15.2 % (9.4-14.8)
[2019-06-22 06:16] LABS: CREATINE KINASE, TOTAL 180 U/L (39-308)
[2019-06-22 07:39] LABS: BASOPHILS # (AUTO) 0.01 x10^3/uL (0-0.1); BASOPHILS % (AUTO) 0 % (0-1); EOSINOPHILS # (AUTO) 0.23 x10^3/uL (0-0.4); EOSINOPHILS % (AUTO) 4 % (1-7); LYMPHOCYTES # (AUTO) 0.63 x10^3/uL (1-3.4); LYMPHOCYTES % (AUTO) 11 % (22-44); MD SCAN; MEAN PLATELET VOLUME 9.3 fL (7.4-10.4); MONOCYTES # (AUTO) 0.88 x10^3/uL (0.2-0.8); MONOCYTES % (AUTO) 15 % (2-9); NEUTROPHILS # (AUTO) 4.07 x10^3/uL (1.8-6.8); NEUTROPHILS % (AUTO) 70 % (42-75); PLATELET COUNT 61 x10^3/uL (130-400)
[2019-06-22 08:27] VITALS: BP 169/79
[2019-06-22] MEDS: GABAPENTIN 400 MG CAPSULE PO SCH ×3 (08:54→20:23)
[2019-06-22] MEDS: PANTOPRAZOLE 40MG TABLET PO SCH (08:54)
[2019-06-22] MEDS: AMLODIPINE 10 MG TAB PO SCH (08:54)
[2019-06-22] MEDS: VENLAFAXINE 75 MG CAP ER PO SCH (08:54)
[2019-06-22] MEDS: POTASSIUM CHLORIDE 20 MEQ TAB.ER.PRT PO SCH ×4 (08:54→20:23)
[2019-06-22] MEDS: INSULIN LISPRO 100 UNITS/ML, PEN SQ-INSULIN SCH ×4 (08:56→20:22)
[2019-06-22] MEDS ORDERED: MAGNESIUM SULFATE PMX 2GM/50ML 50 ML IV ONE (10:30)
[2019-06-22] MEDS: OXYcodone IR 5MG TABLET PO PRN (12:12)
[2019-06-22 13:26] VITALS: BP 154/89
[2019-06-22] MEDS ORDERED: GADOTERATE 10 MMOL/20 ML VIAL ONE (16:00)
[2019-06-22] MEDS ORDERED: GADOTERATE 5 MMOL/10 ML VIAL ONE (16:00)
[2019-06-22 19:08] VITALS: BP 142/77
[2019-06-22] MEDS: FERROUS SULFATE 325 MG TABLET PO SCH (20:23)
[2019-06-22] MEDS: DAPTOMYCIN 725 MG in SODIUM CHLORIDE 0.9% 100 ML IV SCH (20:59)
[2019-06-23] MEDS: HEPARIN 5,000 UNITS/ML, 1ML SQ SCH ×4 (00:23→16:53)
[2019-06-23] MEDS: OXYcodone IR 5MG TABLET PO PRN (00:29)
[2019-06-23 00:31] VITALS: BP 154/89
[2019-06-23 04:50] LABS: MEAN CORPUSCULAR HEMOGLOBIN 33.3 pg (27.5-34.5); MEAN CORPUSCULAR HGB CONC 33.4 g/dL (33.2-36.2); MEAN CORPUSCULAR VOLUME 99.9 fL (81-97); MEAN PLATELET VOLUME 9.7 fL (7.4-10.4); PLATELET COUNT 64 x10^3/uL (130-400); RED BLOOD COUNT 4.21 x10^6/uL (4.38-5.82); RED CELL DISTRIBUTION WIDTH 15.1 % (9.4-14.8)
[2019-06-23 04:55] LABS: ANION GAP 7 mmol/L (5-15); CALCIUM 7.8 mg/dL (8.5-10.1); CHLORIDE 108 mmol/L (98-107); CREATININE 0.61 mg/dL (0.7-1.3)
[2019-06-23 05:07] LABS: BASOPHILS # (AUTO) 0.02 x10^3/uL (0-0.1); BASOPHILS % (AUTO) 0 % (0-1); EOSINOPHILS # (AUTO) 0.33 x10^3/uL (0-0.4); EOSINOPHILS % (AUTO) 6 % (1-7); LYMPHOCYTES # (AUTO) 0.69 x10^3/uL (1-3.4); LYMPHOCYTES % (AUTO) 13 % (22-44); MD SCAN; MONOCYTES # (AUTO) 0.72 x10^3/uL (0.2-0.8); MONOCYTES % (AUTO) 14 % (2-9); NEUTROPHILS # (AUTO) 3.54 x10^3/uL (1.8-6.8); NEUTROPHILS % (AUTO) 67 % (42-75)
[2019-06-23] MEDS: LACTULOSE 20 GM/30 ML UDC PO SCH ×4 (05:26→20:34)
[2019-06-23 06:30] VITALS: BP 157/91
[2019-06-23] MEDS: AMLODIPINE 10 MG TAB PO SCH (08:15)
[2019-06-23] MEDS: PANTOPRAZOLE 40MG TABLET PO SCH (08:15)
[2019-06-23] MEDS: MAGNESIUM OXIDE 400 MG TABLET PO SCH (08:15)
[2019-06-23] MEDS: VENLAFAXINE 75 MG CAP ER PO SCH (08:15)
[2019-06-23] MEDS: INSULIN LISPRO 100 UNITS/ML, PEN SQ-INSULIN SCH ×4 (08:15→20:33)
[2019-06-23] MEDS: GABAPENTIN 400 MG CAPSULE PO SCH ×3 (08:15→20:34)
[2019-06-23] MEDS ORDERED: MAGNESIUM SULFATE PMX 2GM/50ML 50 ML IV ONE (11:00)
[2019-06-23] MEDS: POTASSIUM CHLORIDE 20 MEQ TAB.ER.PRT PO SCH ×3 (11:05→20:34)
[2019-06-23 12:49] VITALS: BP 133/70
[2019-06-23] MEDS: (Dulaglutide (Trulicity) 0.5 ML) SQ SCH (16:52)
[2019-06-23 18:57] VITALS: BP 156/60
[2019-06-23] MEDS: INSULIN GLARGINE 100 UNITS/ML, PEN SQ-INSULIN SCH (20:33)
[2019-06-23] MEDS: FERROUS SULFATE 325 MG TABLET PO SCH (20:34)
[2019-06-23] MEDS: DAPTOMYCIN 725 MG in SODIUM CHLORIDE 0.9% 100 ML IV SCH (20:37)
[2019-06-24] MEDS: HEPARIN 5,000 UNITS/ML, 1ML SQ SCH ×3 (00:45→16:30)
[2019-06-24 00:46] VITALS: BP_SYST 156; BP_SYST 176; BP_DIAS 82; BP_DIAS 92
[2019-06-24] MEDS: OXYcodone IR 5MG TABLET PO PRN ×2 (01:43→11:55)
[2019-06-24] MEDS: LACTULOSE 20 GM/30 ML UDC PO SCH ×4 (05:25→20:58)
[2019-06-24 05:42] LABS: MEAN CORPUSCULAR HEMOGLOBIN 33.9 pg (27.5-34.5); MEAN CORPUSCULAR HGB CONC 33.9 g/dL (33.2-36.2); MEAN CORPUSCULAR VOLUME 99.8 fL (81-97); RED BLOOD COUNT 4.49 x10^6/uL (4.38-5.82)
[2019-06-24 05:54] LABS: ANION GAP 6 mmol/L (5-15); CALCIUM 8.2 mg/dL (8.5-10.1); CHLORIDE 106 mmol/L (98-107)
[2019-06-24 05:55] LABS: CREATININE 0.56 mg/dL (0.7-1.3)
[2019-06-24 06:08] LABS: BASOPHILS # (AUTO) 0.01 x10^3/uL (0-0.1); BASOPHILS % (AUTO) 0 % (0-1); EOSINOPHILS % (AUTO) 5 % (1-7); LYMPHOCYTES # (AUTO) 0.58 x10^3/uL (1-3.4); LYMPHOCYTES % (AUTO) 10 % (22-44); MD SCAN; MEAN PLATELET VOLUME 9.1 fL (7.4-10.4); MONOCYTES # (AUTO) 0.69 x10^3/uL (0.2-0.8); MONOCYTES % (AUTO) 12 % (2-9); NEUTROPHILS % (AUTO) 72 % (42-75); PLATELET COUNT 71 x10^3/uL (130-400)
[2019-06-24 07:24] VITALS: BP 149/67
[2019-06-24] MEDS: INSULIN LISPRO 100 UNITS/ML, PEN SQ-INSULIN SCH ×4 (08:03→20:59)
[2019-06-24] MEDS: VENLAFAXINE 75 MG CAP ER PO SCH (08:04)
[2019-06-24] MEDS: PANTOPRAZOLE 40MG TABLET PO SCH (08:04)
[2019-06-24] MEDS: MAGNESIUM OXIDE 400 MG TABLET PO SCH (08:04)
[2019-06-24] MEDS: GABAPENTIN 400 MG CAPSULE PO SCH ×3 (08:04→21:00)
[2019-06-24] MEDS: INSULIN GLARGINE 100 UNITS/ML, PEN SQ-INSULIN SCH ×2 (08:04→20:59)
[2019-06-24] MEDS: AMLODIPINE 10 MG TAB PO SCH (08:05)
[2019-06-24] MEDS: POTASSIUM CHLORIDE 20 MEQ TAB.ER.PRT PO SCH ×2 (09:44→16:30)
[2019-06-24 12:00] VITALS: BP 137/86
[2019-06-24 18:56] VITALS: BP 131/82
[2019-06-24] MEDS: FERROUS SULFATE 325 MG TABLET PO SCH (21:00)
[2019-06-24] MEDS: DAPTOMYCIN 725 MG in SODIUM CHLORIDE 0.9% 100 ML IV SCH (21:10)
[2019-06-25 00:42] VITALS: BP 162/76
[2019-06-25] MEDS: HEPARIN 5,000 UNITS/ML, 1ML SQ SCH ×3 (01:43→16:25)
[2019-06-25] MEDS: OXYcodone IR 5MG TABLET PO PRN ×2 (02:46→20:56)
[2019-06-25] MEDS: LACTULOSE 20 GM/30 ML UDC PO SCH ×4 (05:11→20:35)
[2019-06-25 06:16] VITALS: BP 141/66
[2019-06-25 06:19] LABS: HCT (SEDRATE) 41.7 % (39.2-51.8)
[2019-06-25 06:25] LABS: ALANINE AMINOTRANSFERASE 44 U/L (12-78); ALBUMIN 2.1 g/dL (3.4-5.0); ANION GAP 6 mmol/L (5-15); CALCIUM 8.3 mg/dL (8.5-10.1); CHLORIDE 108 mmol/L (98-107); CREATININE 0.63 mg/dL (0.7-1.3)
[2019-06-25 06:31] LABS: ALKALINE PHOSPHATASE 145 U/L (45-117); BILIRUBIN,TOTAL 1.4 mg/dL (0.2-1.0); CREATINE KINASE, TOTAL 53 U/L (39-308); TOTAL PROTEIN 7.1 g/dL (6.4-8.2)
[2019-06-25 06:32] LABS: MEAN CORPUSCULAR HEMOGLOBIN 33.8 pg (27.5-34.5); MEAN CORPUSCULAR HGB CONC 33.7 g/dL (33.2-36.2); MEAN CORPUSCULAR VOLUME 100.4 fL (81-97); MEAN PLATELET VOLUME 9.8 fL (7.4-10.4); PLATELET COUNT 72 x10^3/uL (130-400); RED BLOOD COUNT 4.22 x10^6/uL (4.38-5.82); RED CELL DISTRIBUTION WIDTH 15.1 % (9.4-14.8)
[2019-06-25 07:00] LABS: BASOPHILS # (AUTO) 0.04 x10^3/uL (0-0.1); BASOPHILS % (AUTO) 1 % (0-1); EOSINOPHILS # (AUTO) 0.37 x10^3/uL (0-0.4); EOSINOPHILS % (AUTO) 6 % (1-7); LYMPHOCYTES # (AUTO) 0.65 x10^3/uL (1-3.4); LYMPHOCYTES % (AUTO) 11 % (22-44); MD SCAN; MONOCYTES % (AUTO) 12 % (2-9); NEUTROPHILS # (AUTO) 3.96 x10^3/uL (1.8-6.8); NEUTROPHILS % (AUTO) 69 % (42-75)
[2019-06-25] MEDS: INSULIN LISPRO 100 UNITS/ML, PEN SQ-INSULIN SCH ×4 (08:58→20:35)
[2019-06-25] MEDS: VENLAFAXINE 75 MG CAP ER PO SCH (08:59)
[2019-06-25] MEDS: PANTOPRAZOLE 40MG TABLET PO SCH (08:59)
[2019-06-25] MEDS: AMLODIPINE 10 MG TAB PO SCH (08:59)
[2019-06-25] MEDS: MAGNESIUM OXIDE 400 MG TABLET PO SCH (08:59)
[2019-06-25] MEDS: GABAPENTIN 400 MG CAPSULE PO SCH ×3 (08:59→20:36)
[2019-06-25] MEDS ORDERED: INSULIN GLARGINE 100 UNITS/ML, PEN SQ-INSULIN SCH (09:00)
[2019-06-25 12:14] VITALS: BP 150/81
[2019-06-25 18:50] VITALS: BP 145/68
[2019-06-25] MEDS: INSULIN GLARGINE 100 UNITS/ML, PEN SQ-INSULIN SCH (20:34)
[2019-06-25] MEDS: FERROUS SULFATE 325 MG TABLET PO SCH (20:35)
[2019-06-25] MEDS: DAPTOMYCIN 725 MG in SODIUM CHLORIDE 0.9% 100 ML IV SCH (21:02)
[2019-06-26 00:35] VITALS: BP 156/84
[2019-06-26] MEDS: HEPARIN 5,000 UNITS/ML, 1ML SQ SCH ×3 (01:11→16:48)
[2019-06-26] MEDS: LACTULOSE 20 GM/30 ML UDC PO SCH ×4 (05:20→20:43)
[2019-06-26 07:00] VITALS: BP 155/76
[2019-06-26] MEDS: GABAPENTIN 400 MG CAPSULE PO SCH ×3 (08:34→20:43)
[2019-06-26] MEDS: VENLAFAXINE 75 MG CAP ER PO SCH (08:35)
[2019-06-26] MEDS: MAGNESIUM OXIDE 400 MG TABLET PO SCH (08:35)
[2019-06-26] MEDS: PANTOPRAZOLE 40MG TABLET PO SCH (08:35)
[2019-06-26] MEDS: AMLODIPINE 10 MG TAB PO SCH (08:35)
[2019-06-26] MEDS: INSULIN LISPRO 100 UNITS/ML, PEN SQ-INSULIN SCH ×4 (08:36→21:04)
[2019-06-26] MEDS ORDERED: POTASSIUM CHLORIDE 20 MEQ TAB.ER.PRT PO SCH (09:00)
[2019-06-26] MEDS ORDERED: INSULIN GLARGINE 100 UNITS/ML, PEN SQ-INSULIN SCH ×3 (09:00→21:00)
[2019-06-26 09:23] LABS: ALBUMIN 2.3 g/dL (3.4-5.0); ANION GAP 6 mmol/L (5-15); CALCIUM 8.4 mg/dL (8.5-10.1); CHLORIDE 108 mmol/L (98-107)
[2019-06-26 09:26] LABS: ALANINE AMINOTRANSFERASE 46 U/L (12-78); ALKALINE PHOSPHATASE 159 U/L (45-117); BILIRUBIN,TOTAL 1.4 mg/dL (0.2-1.0); CREATININE 0.65 mg/dL (0.7-1.3); TOTAL PROTEIN 7.6 g/dL (6.4-8.2)
[2019-06-26] MEDS: LISINOPRIL 20 MG TABLET PO SCH (09:35)
[2019-06-26 12:23] VITALS: BP 156/77
[2019-06-26] MEDS: DAPTOMYCIN 725 MG in SODIUM CHLORIDE 0.9% 100 ML IV SCH (20:43)
[2019-06-26] MEDS: FERROUS SULFATE 325 MG TABLET PO SCH (20:43)
[2019-06-26 22:39] VITALS: BP 142/84
[2019-06-27 00:51] VITALS: BP 151/58
[2019-06-27] MEDS: HEPARIN 5,000 UNITS/ML, 1ML SQ SCH ×3 (01:30→15:07)
[2019-06-27] MEDS: LACTULOSE 20 GM/30 ML UDC PO SCH ×4 (05:21→19:56)
[2019-06-27 05:47] LABS: ANION GAP 7 mmol/L (5-15); CHLORIDE 108 mmol/L (98-107)
[2019-06-27 05:51] LABS: ALANINE AMINOTRANSFERASE 41 U/L (12-78); ALKALINE PHOSPHATASE 144 U/L (45-117); BILIRUBIN,TOTAL 1.2 mg/dL (0.2-1.0); CREATININE 0.57 mg/dL (0.7-1.3); TOTAL PROTEIN 6.9 g/dL (6.4-8.2)
[2019-06-27 06:04] LABS: MEAN CORPUSCULAR HEMOGLOBIN 33.7 pg (27.5-34.5); MEAN CORPUSCULAR HGB CONC 33.9 g/dL (33.2-36.2); MEAN CORPUSCULAR VOLUME 99.6 fL (81-97); MEAN PLATELET VOLUME 10.4 fL (7.4-10.4); PLATELET COUNT 73 x10^3/uL (130-400); RED BLOOD COUNT 3.93 x10^6/uL (4.38-5.82); RED CELL DISTRIBUTION WIDTH 14.9 % (9.4-14.8)
[2019-06-27 06:49] LABS: BASOPHILS # (AUTO) 0.01 x10^3/uL (0-0.1); BASOPHILS % (AUTO) 0 % (0-1); EOSINOPHILS # (AUTO) 0.33 x10^3/uL (0-0.4); EOSINOPHILS % (AUTO) 6 % (1-7); LYMPHOCYTES # (AUTO) 0.67 x10^3/uL (1-3.4); LYMPHOCYTES % (AUTO) 13 % (22-44); MD SCAN; MONOCYTES # (AUTO) 0.79 x10^3/uL (0.2-0.8); MONOCYTES % (AUTO) 15 % (2-9); NEUTROPHILS # (AUTO) 3.55 x10^3/uL (1.8-6.8); NEUTROPHILS % (AUTO) 66 % (42-75)
[2019-06-27 06:59] VITALS: BP 126/70
[2019-06-27] MEDS: INSULIN LISPRO 100 UNITS/ML, PEN SQ-INSULIN SCH ×4 (07:00→19:58)
[2019-06-27] MEDS: PANTOPRAZOLE 40MG TABLET PO SCH (07:30)
[2019-06-27] MEDS: INSULIN GLARGINE 100 UNITS/ML, PEN SQ-INSULIN SCH ×2 (09:00→19:58)
[2019-06-27] MEDS: VENLAFAXINE 75 MG CAP ER PO SCH (09:13)
[2019-06-27] MEDS: MAGNESIUM OXIDE 400 MG TABLET PO SCH (09:13)
[2019-06-27] MEDS: GABAPENTIN 400 MG CAPSULE PO SCH ×3 (09:13→19:56)
[2019-06-27] MEDS: AMLODIPINE 10 MG TAB PO SCH (09:13)
[2019-06-27] MEDS: LISINOPRIL 20 MG TABLET PO SCH (09:14)
[2019-06-27] MEDS: POTASSIUM CHLORIDE 20 MEQ TAB.ER.PRT PO SCH ×2 (09:21→19:56)
[2019-06-27 15:14] VITALS: BP 120/73
[2019-06-27] MEDS ORDERED: CHLORHEXIDINE 15 ML UDC ONE (15:54)
[2019-06-27] MEDS: GABAPENTIN 300 MG CAPSULE PO ONE ×2 (16:00→16:04)
[2019-06-27] MEDS ORDERED: ACETAMINOPHEN 500 MG TABLET PO ONE (16:00)
[2019-06-27] MEDS ORDERED: BUPIVACAINE/PF 0.5% ONE (16:51)
[2019-06-27] MEDS ORDERED: BUPIVACAINE/PF 0.5% INJ ONE (17:25)
[2019-06-27 18:43] VITALS: BP 144/80
[2019-06-27] MEDS: FERROUS SULFATE 325 MG TABLET PO SCH (19:56)
[2019-06-27] MEDS: OXYcodone IR 5MG TABLET PO PRN (20:06)
[2019-06-27] MEDS: DAPTOMYCIN 725 MG in SODIUM CHLORIDE 0.9% 100 ML IV SCH (21:56)
[2019-06-28] MEDS: HEPARIN 5,000 UNITS/ML, 1ML SQ SCH ×3 (00:16→16:54)
[2019-06-28 00:17] VITALS: BP 158/85
[2019-06-28] MEDS ORDERED: OXYcodone IR 5MG TABLET PO ONE (01:00)
[2019-06-28 05:05] LABS: ALBUMIN 2.1 g/dL (3.4-5.0); ANION GAP 5 mmol/L (5-15); CALCIUM 7.9 mg/dL (8.5-10.1); CHLORIDE 108 mmol/L (98-107)
[2019-06-28 05:08] LABS: ALANINE AMINOTRANSFERASE 43 U/L (12-78); ALKALINE PHOSPHATASE 145 U/L (45-117); BILIRUBIN,TOTAL 0.9 mg/dL (0.2-1.0); CREATININE 0.69 mg/dL (0.7-1.3); TOTAL PROTEIN 7.2 g/dL (6.4-8.2)
[2019-06-28] MEDS: LACTULOSE 20 GM/30 ML UDC PO SCH ×4 (05:10→20:24)
[2019-06-28 07:49] VITALS: BP 159/79
[2019-06-28] MEDS: INSULIN LISPRO 100 UNITS/ML, PEN SQ-INSULIN SCH ×4 (08:14→20:26)
[2019-06-28] MEDS: PANTOPRAZOLE 40MG TABLET PO SCH (08:14)
[2019-06-28] MEDS: INSULIN GLARGINE 100 UNITS/ML, PEN SQ-INSULIN SCH ×3 (08:15→20:25)
[2019-06-28] MEDS: AMLODIPINE 10 MG TAB PO SCH (09:07)
[2019-06-28] MEDS: POTASSIUM CHLORIDE 20 MEQ TAB.ER.PRT PO SCH ×2 (09:07→20:25)
[2019-06-28] MEDS: MAGNESIUM OXIDE 400 MG TABLET PO SCH (09:07)
[2019-06-28] MEDS: VENLAFAXINE 75 MG CAP ER PO SCH (09:07)
[2019-06-28] MEDS: GABAPENTIN 400 MG CAPSULE PO SCH ×3 (09:07→20:25)
[2019-06-28] MEDS: LISINOPRIL 20 MG TABLET PO SCH (09:08)
[2019-06-28 11:22] VITALS: BP 124/75
[2019-06-28 14:00] VITALS: BP 133/65
[2019-06-28] MEDS: OXYcodone IR 5MG TABLET PO PRN ×2 (15:18→22:53)
[2019-06-28 20:18] VITALS: BP 132/72
[2019-06-28] MEDS: FERROUS SULFATE 325 MG TABLET PO SCH (20:25)
[2019-06-28] MEDS: DAPTOMYCIN 725 MG in SODIUM CHLORIDE 0.9% 100 ML IV SCH (21:28)
[2019-06-29] MEDS: HEPARIN 5,000 UNITS/ML, 1ML SQ SCH ×3 (01:17→17:02)
[2019-06-29 02:02] VITALS: BP 148/63
[2019-06-29] MEDS: LACTULOSE 20 GM/30 ML UDC PO SCH ×4 (05:21→21:54)
[2019-06-29 07:28] VITALS: BP 132/79
[2019-06-29] MEDS: PANTOPRAZOLE 40MG TABLET PO SCH (07:29)
[2019-06-29] MEDS: INSULIN GLARGINE 100 UNITS/ML, PEN SQ-INSULIN SCH ×3 (08:11→21:55)
[2019-06-29] MEDS: AMLODIPINE 10 MG TAB PO SCH (08:11)
[2019-06-29] MEDS: GABAPENTIN 400 MG CAPSULE PO SCH ×3 (08:11→21:53)
[2019-06-29] MEDS: INSULIN LISPRO 100 UNITS/ML, PEN SQ-INSULIN SCH ×4 (08:11→21:56)
[2019-06-29] MEDS: POTASSIUM CHLORIDE 20 MEQ TAB.ER.PRT PO SCH ×3 (08:12→09:00)
[2019-06-29] MEDS: VENLAFAXINE 75 MG CAP ER PO SCH (08:12)
[2019-06-29] MEDS: MAGNESIUM OXIDE 400 MG TABLET PO SCH (08:12)
[2019-06-29] MEDS: LISINOPRIL 20 MG TABLET PO SCH (08:13)
[2019-06-29] MEDS: OXYcodone IR 5MG TABLET PO PRN ×2 (08:19→21:54)
[2019-06-29 13:13] VITALS: BP 149/80
[2019-06-29 19:26] VITALS: BP 154/82
[2019-06-29] MEDS: FERROUS SULFATE 325 MG TABLET PO SCH (21:54)
[2019-06-29] MEDS: DAPTOMYCIN 725 MG in SODIUM CHLORIDE 0.9% 100 ML IV SCH (22:53)
[2019-06-30 00:36] VITALS: BP 155/83
[2019-06-30] MEDS: HEPARIN 5,000 UNITS/ML, 1ML SQ SCH ×3 (02:25→17:05)
[2019-06-30] MEDS: LACTULOSE 20 GM/30 ML UDC PO SCH ×3 (05:09→15:49)
[2019-06-30 07:29] VITALS: BP 160/78
[2019-06-30] MEDS: LISINOPRIL 20 MG TABLET PO SCH (08:10)
[2019-06-30] MEDS: GABAPENTIN 400 MG CAPSULE PO SCH ×2 (08:11→15:49)
[2019-06-30] MEDS: OXYcodone IR 5MG TABLET PO PRN (08:11)
[2019-06-30] MEDS: POTASSIUM CHLORIDE 20 MEQ TAB.ER.PRT PO SCH (08:11)
[2019-06-30] MEDS: PANTOPRAZOLE 40MG TABLET PO SCH (08:11)
[2019-06-30] MEDS: AMLODIPINE 10 MG TAB PO SCH (08:11)
[2019-06-30] MEDS: VENLAFAXINE 75 MG CAP ER PO SCH (08:11)
[2019-06-30] MEDS: MAGNESIUM OXIDE 400 MG TABLET PO SCH (08:11)
[2019-06-30] MEDS: INSULIN LISPRO 100 UNITS/ML, PEN SQ-INSULIN SCH ×3 (08:12→16:25)
[2019-06-30] MEDS: INSULIN GLARGINE 100 UNITS/ML, PEN SQ-INSULIN SCH (08:15)
[2019-06-30] MEDS ORDERED: INSULIN GLARGINE 100 UNITS/ML, PEN SQ-INSULIN ONE (09:00)
[2019-06-30] MEDS ORDERED: INSULIN GLARGINE 100 UNITS/ML, PEN SQ-INSULIN SCH (09:00)
[2019-06-30] MEDS ORDERED: CHLORTHALIDONE 25 MG TABLET PO SCH (09:00)
[2019-06-30] MEDS ORDERED: FLUCONAZOLE 200 MG TABLET PO SCH (12:00)
[2019-06-30] MEDS ORDERED: MICAFUNGIN 100 MG in SODIUM CHLORIDE 0.9% 100 ML IV SCH (12:00)
[2019-06-30] MEDS ORDERED: FLUC200T PO (12:04)
[2019-06-30] MEDS ORDERED: LISI-170 PO (12:04)
[2019-06-30] MEDS ORDERED: POTA20TA6 PO (12:04)
[2019-06-30] MEDS ORDERED: PANT40TA5 PO (12:04)
[2019-06-30] MEDS ORDERED: CHLO25TA PO (12:04)
[2019-06-30 13:26] VITALS: BP 143/65
[2019-06-30] MEDS: DAPTOMYCIN 725 MG in SODIUM CHLORIDE 0.9% 100 ML IV SCH (16:24)
[2019-06-30] MEDS: (Dulaglutide (Trulicity) 0.5 ML) SQ SCH (17:00)
== END 2019-06-30 17:39 | disposition home or self-care (01) | DRG 853 ==
LOC: ED 13:46 → EDIP 15:38 → ICU 16:42 → 4WST 06-21 18:25
PROVIDERS: ADMIT Hospitalist; ATTEND Internal Medicine
PROC: 0QBN0ZZ Excision of Right Metatarsal, Open Approach (ICD-10-PCS; principal; 2019-06-27 16:30)
PROC: 02HV33Z Insertion of Infusion Device into Superior Vena Cava, Percutaneous Approach (ICD-10-PCS; 2019-06-29)
PROC: B5181ZA Fluoroscopy of Superior Vena Cava using Low Osmolar Contrast, Guidance (ICD-10-PCS; 2019-06-29)
PROC: B548ZZA Ultrasonography of Superior Vena Cava, Guidance (ICD-10-PCS; 2019-06-29)
DX: A41.01 Sepsis due to Methicillin susceptible Staphylococcus aureus (principal); E43 Unspecified severe protein-calorie malnutrition; L03.115 Cellulitis of right lower limb; K76.6 Portal hypertension; I85.10 Secondary esophageal varices without bleeding; L97.419 Non-pressure chronic ulcer of right heel and midfoot with unspecified severity; Z68.41 Body mass index [BMI] 40.0-44.9, adult; E87.1 Hypo-osmolality and hyponatremia; L97.519 Non-pressure chronic ulcer of other part of right foot with unspecified severity; B18.2 Chronic viral hepatitis C; D69.59 Other secondary thrombocytopenia; E11.42 Type 2 diabetes mellitus with diabetic polyneuropathy; E11.621 Type 2 diabetes mellitus with foot ulcer; E11.622 Type 2 diabetes mellitus with other skin ulcer; E11.65 Type 2 diabetes mellitus with hyperglycemia; E66.9 Obesity, unspecified; E83.42 Hypomagnesemia; E87.6 Hypokalemia; F17.200 Nicotine dependence, unspecified, uncomplicated; G47.33 Obstructive sleep apnea (adult) (pediatric); G89.29 Other chronic pain; I10 Essential (primary) hypertension; I87.2 Venous insufficiency (chronic) (peripheral); I87.8 Other specified disorders of veins; K70.40 Alcoholic hepatic failure without coma; K74.60 Unspecified cirrhosis of liver; Z79.4 Long term (current) use of insulin; Z80.8 Family history of malignant neoplasm of other organs or systems; Z82.3 Family history of stroke; Z96.652 Presence of left artificial knee joint; Z86.718 Personal history of other venous thrombosis and embolism; Z20.828 Contact with and (suspected) exposure to other viral communicable diseases; Z79.891 Long term (current) use of opiate analgesic
CPT/HCPCS: 36415; 36573; 71045; 80048; 80053; 81001; 82140; 82550; 82962; 83036; 83605; 83615; 83735; 84145; 84439; 84443; 85025; 85379; 85610; 85651; 86140; 87040; 87070; 87075; 87077; 87081; 87086; 87102; 87106; 87181; 87186; 87205; 87400; 93005; 93306; 99291; A9575; G0378; J0696; J0878; J1644; J3370; J3480; C1751; J1815; J2270; J3475; J7030; J7040

== ENCOUNTER 2019-07-11 14:31 | Outpatient (CLI) | payer MEDICARE ==
[~2019-07-11 14:31] MED LIST changes: +CHLO25TA PO; +FERR324T5 PO; +FLUC200T PO; +LACT10SO28 PO; +PANT40TA5 PO; +POTA20TA6 PO
== END 2019-07-11 23:59 | disposition home or self-care (01) ==
LOC: WOUND 14:31
PROVIDERS: ATTEND Internal Medicine
DX: E11.621 Type 2 diabetes mellitus with foot ulcer (principal); L97.512 Non-pressure chronic ulcer of other part of right foot with fat layer exposed; L84 Corns and callosities; E11.69 Type 2 diabetes mellitus with other specified complication; M86.171 Other acute osteomyelitis, right ankle and foot; E11.42 Type 2 diabetes mellitus with diabetic polyneuropathy; E66.9 Obesity, unspecified; I10 Essential (primary) hypertension; I87.2 Venous insufficiency (chronic) (peripheral); I89.0 Lymphedema, not elsewhere classified; G47.33 Obstructive sleep apnea (adult) (pediatric); G89.29 Other chronic pain; K31.89 Other diseases of stomach and duodenum; K74.60 Unspecified cirrhosis of liver; B18.2 Chronic viral hepatitis C; F17.210 Nicotine dependence, cigarettes, uncomplicated; Z68.41 Body mass index [BMI] 40.0-44.9, adult; Z89.421 Acquired absence of other right toe(s); Z79.4 Long term (current) use of insulin; Z96.652 Presence of left artificial knee joint; Z88.2 Allergy status to sulfonamides; Z85.89 Personal history of malignant neoplasm of other organs and systems; Z91.19 Patient's noncompliance with other medical treatment and regimen; Z86.718 Personal history of other venous thrombosis and embolism
CPT/HCPCS: 97597

== ENCOUNTER → 2019-07-18 | Outpatient (CLI) | payer MEDICARE | END | disposition home or self-care (01) | LOC: WOUND 14:46 | PROVIDERS: ATTEND Internal Medicine | DX: E11.621 Type 2 diabetes mellitus with foot ulcer (principal); L97.512 Non-pressure chronic ulcer of other part of right foot with fat layer exposed; L84 Corns and callosities; E11.69 Type 2 diabetes mellitus with other specified complication; M86.171 Other acute osteomyelitis, right ankle and foot; E11.42 Type 2 diabetes mellitus with diabetic polyneuropathy; E66.9 Obesity, unspecified; I10 Essential (primary) hypertension; I87.2 Venous insufficiency (chronic) (peripheral); I89.0 Lymphedema, not elsewhere classified; G73.3 Myasthenic syndromes in other diseases classified elsewhere; G89.29 Other chronic pain; K31.89 Other diseases of stomach and duodenum; K74.60 Unspecified cirrhosis of liver; B18.2 Chronic viral hepatitis C; F17.210 Nicotine dependence, cigarettes, uncomplicated; Z68.41 Body mass index [BMI] 40.0-44.9, adult; Z89.421 Acquired absence of other right toe(s); Z79.4 Long term (current) use of insulin; Z96.652 Presence of left artificial knee joint; Z88.2 Allergy status to sulfonamides; Z85.89 Personal history of malignant neoplasm of other organs and systems; Z91.19 Patient's noncompliance with other medical treatment and regimen; Z86.718 Personal history of other venous thrombosis and embolism | CPT/HCPCS: 11042 ==

== ENCOUNTER 2019-07-25 11:10 | Outpatient (CLI) | payer MEDICARE, MEDICAID | END 2019-07-25 23:59 | disposition home or self-care (01) | LOC: WOUND 11:10 | PROVIDERS: ATTEND Internal Medicine | DX: E11.621 Type 2 diabetes mellitus with foot ulcer (principal); L97.512 Non-pressure chronic ulcer of other part of right foot with fat layer exposed; L84 Corns and callosities; E11.69 Type 2 diabetes mellitus with other specified complication; M86.171 Other acute osteomyelitis, right ankle and foot; E11.42 Type 2 diabetes mellitus with diabetic polyneuropathy; E66.9 Obesity, unspecified; I10 Essential (primary) hypertension; I89.0 Lymphedema, not elsewhere classified; G73.3 Myasthenic syndromes in other diseases classified elsewhere; G89.29 Other chronic pain; K31.89 Other diseases of stomach and duodenum; K74.60 Unspecified cirrhosis of liver; B18.2 Chronic viral hepatitis C; I87.2 Venous insufficiency (chronic) (peripheral); G47.33 Obstructive sleep apnea (adult) (pediatric); E43 Unspecified severe protein-calorie malnutrition; F17.210 Nicotine dependence, cigarettes, uncomplicated; Z68.41 Body mass index [BMI] 40.0-44.9, adult; Z89.421 Acquired absence of other right toe(s); Z88.2 Allergy status to sulfonamides; Z79.4 Long term (current) use of insulin; Z96.652 Presence of left artificial knee joint; Z85.89 Personal history of malignant neoplasm of other organs and systems; Z91.19 Patient's noncompliance with other medical treatment and regimen; Z86.718 Personal history of other venous thrombosis and embolism; Z79.891 Long term (current) use of opiate analgesic | CPT/HCPCS: 11042 ==

== ENCOUNTER → 2019-07-25 | Outpatient (CLI) | payer MEDICARE | END | disposition home or self-care (01) | LOC: CFH 12:14 | PROVIDERS: ATTEND Internal Medicine | DX: S22.070A Wedge compression fracture of T9-T10 vertebra, initial encounter for closed fracture (principal); S22.080A Wedge compression fracture of T11-T12 vertebra, initial encounter for closed fracture; E11.621 Type 2 diabetes mellitus with foot ulcer; L97.512 Non-pressure chronic ulcer of other part of right foot with fat layer exposed; M86.171 Other acute osteomyelitis, right ankle and foot; X58.XXXA Exposure to other specified factors, initial encounter; Y93.89 Activity, other specified; Y92.89 Other specified places as the place of occurrence of the external cause; Y99.8 Other external cause status | CPT/HCPCS: 71046 ==

== ENCOUNTER → 2019-08-06 | Outpatient (CLI) | payer MEDICARE, MEDICAID | END | disposition home or self-care (01) | LOC: WOUND 14:14 | PROVIDERS: ATTEND Internal Medicine | DX: E11.621 Type 2 diabetes mellitus with foot ulcer (principal); L97.512 Non-pressure chronic ulcer of other part of right foot with fat layer exposed; L97.411 Non-pressure chronic ulcer of right heel and midfoot limited to breakdown of skin; L84 Corns and callosities; E11.69 Type 2 diabetes mellitus with other specified complication; M86.171 Other acute osteomyelitis, right ankle and foot; E11.42 Type 2 diabetes mellitus with diabetic polyneuropathy; E66.9 Obesity, unspecified; I10 Essential (primary) hypertension; I89.0 Lymphedema, not elsewhere classified; G73.3 Myasthenic syndromes in other diseases classified elsewhere; G89.29 Other chronic pain; K31.89 Other diseases of stomach and duodenum; K74.60 Unspecified cirrhosis of liver; B18.2 Chronic viral hepatitis C; I87.2 Venous insufficiency (chronic) (peripheral); G47.33 Obstructive sleep apnea (adult) (pediatric); E43 Unspecified severe protein-calorie malnutrition; F17.210 Nicotine dependence, cigarettes, uncomplicated; Z68.41 Body mass index [BMI] 40.0-44.9, adult; Z89.421 Acquired absence of other right toe(s); Z88.2 Allergy status to sulfonamides; Z79.4 Long term (current) use of insulin; Z96.652 Presence of left artificial knee joint; Z85.89 Personal history of malignant neoplasm of other organs and systems; Z91.19 Patient's noncompliance with other medical treatment and regimen; Z86.718 Personal history of other venous thrombosis and embolism; Z79.891 Long term (current) use of opiate analgesic | CPT/HCPCS: G0463 ==

== ENCOUNTER → 2019-11-12 | Outpatient (CLI) | payer MEDICARE, MEDICAID ==
[~2019-11-12] MED LIST changes: +ACET325T26 PO; +ACID1TAB7 PO; +INSU100I13 SQ-INSULIN; +LISI40TA PO; +NYST15CR TP; -NYST15CR33 TP
== END | disposition home or self-care (01) ==
LOC: WOUND 12:20
PROVIDERS: ATTEND Internal Medicine
DX: E11.621 Type 2 diabetes mellitus with foot ulcer (principal); L97.512 Non-pressure chronic ulcer of other part of right foot with fat layer exposed; L97.411 Non-pressure chronic ulcer of right heel and midfoot limited to breakdown of skin; E11.42 Type 2 diabetes mellitus with diabetic polyneuropathy; I87.2 Venous insufficiency (chronic) (peripheral); G47.30 Sleep apnea, unspecified; M86.171 Other acute osteomyelitis, right ankle and foot; E11.69 Type 2 diabetes mellitus with other specified complication; M86.671 Other chronic osteomyelitis, right ankle and foot; E66.01 Morbid (severe) obesity due to excess calories; E44.0 Moderate protein-calorie malnutrition; F11.20 Opioid dependence, uncomplicated; F17.210 Nicotine dependence, cigarettes, uncomplicated; Z88.2 Allergy status to sulfonamides; Z88.8 Allergy status to other drugs, medicaments and biological substances; Z96.652 Presence of left artificial knee joint; Z85.89 Personal history of malignant neoplasm of other organs and systems; Z86.19 Personal history of other infectious and parasitic diseases; Z91.19 Patient's noncompliance with other medical treatment and regimen; Z86.718 Personal history of other venous thrombosis and embolism; Z79.4 Long term (current) use of insulin; Z79.84 Long term (current) use of oral hypoglycemic drugs; Z79.899 Other long term (current) drug therapy; Z89.421 Acquired absence of other right toe(s); Z68.41 Body mass index [BMI] 40.0-44.9, adult
CPT/HCPCS: 97597

== ENCOUNTER 2019-11-21 11:02 | Outpatient (CLI) | payer MEDICARE, MEDICAID ==
[~2019-11-21 11:02] MED LIST changes: -PANT40TA5 PO; +PANT40TA6 PO
== END 2019-11-21 23:59 | disposition home or self-care (01) ==
LOC: WOUND 11:02
PROVIDERS: ATTEND Internal Medicine
DX: E11.621 Type 2 diabetes mellitus with foot ulcer (principal); L97.512 Non-pressure chronic ulcer of other part of right foot with fat layer exposed; E11.622 Type 2 diabetes mellitus with other skin ulcer; L97.821 Non-pressure chronic ulcer of other part of left lower leg limited to breakdown of skin; E11.69 Type 2 diabetes mellitus with other specified complication; M86.171 Other acute osteomyelitis, right ankle and foot; I87.2 Venous insufficiency (chronic) (peripheral); E11.42 Type 2 diabetes mellitus with diabetic polyneuropathy; L84 Corns and callosities; M54.9 Dorsalgia, unspecified; I11.0 Hypertensive heart disease with heart failure; G89.29 Other chronic pain; I50.9 Heart failure, unspecified; G47.33 Obstructive sleep apnea (adult) (pediatric); E66.01 Morbid (severe) obesity due to excess calories; F17.210 Nicotine dependence, cigarettes, uncomplicated; Z79.4 Long term (current) use of insulin; Z68.41 Body mass index [BMI] 40.0-44.9, adult; Z79.01 Long term (current) use of anticoagulants; Z85.89 Personal history of malignant neoplasm of other organs and systems; Z86.19 Personal history of other infectious and parasitic diseases; Z86.718 Personal history of other venous thrombosis and embolism; Z89.421 Acquired absence of other right toe(s)
CPT/HCPCS: 11042

== ENCOUNTER 2019-11-29 11:14 | Outpatient (CLI) | payer MEDICARE, MEDICAID | END 2019-11-29 23:59 | disposition home or self-care (01) | LOC: WOUND 11:14 | PROVIDERS: ATTEND Internal Medicine Cardiovascular Disease | DX: E11.621 Type 2 diabetes mellitus with foot ulcer (principal); L97.512 Non-pressure chronic ulcer of other part of right foot with fat layer exposed; E11.622 Type 2 diabetes mellitus with other skin ulcer; L97.821 Non-pressure chronic ulcer of other part of left lower leg limited to breakdown of skin; E11.69 Type 2 diabetes mellitus with other specified complication; M86.171 Other acute osteomyelitis, right ankle and foot; M86.671 Other chronic osteomyelitis, right ankle and foot; I87.2 Venous insufficiency (chronic) (peripheral); E11.42 Type 2 diabetes mellitus with diabetic polyneuropathy; L84 Corns and callosities; M54.9 Dorsalgia, unspecified; I11.0 Hypertensive heart disease with heart failure; I50.9 Heart failure, unspecified; G89.29 Other chronic pain; G47.33 Obstructive sleep apnea (adult) (pediatric); E44.0 Moderate protein-calorie malnutrition; E66.01 Morbid (severe) obesity due to excess calories; F17.210 Nicotine dependence, cigarettes, uncomplicated; F11.20 Opioid dependence, uncomplicated; G47.30 Sleep apnea, unspecified; Z79.4 Long term (current) use of insulin; Z68.41 Body mass index [BMI] 40.0-44.9, adult; Z79.01 Long term (current) use of anticoagulants; Z85.89 Personal history of malignant neoplasm of other organs and systems; Z86.19 Personal history of other infectious and parasitic diseases; Z86.718 Personal history of other venous thrombosis and embolism; Z89.421 Acquired absence of other right toe(s); Z79.84 Long term (current) use of oral hypoglycemic drugs; Z79.899 Other long term (current) drug therapy; Z88.2 Allergy status to sulfonamides; Z88.8 Allergy status to other drugs, medicaments and biological substances; Z96.652 Presence of left artificial knee joint | CPT/HCPCS: G0463 ==

== ENCOUNTER 2019-12-05 11:06 | Outpatient (CLI) | payer MEDICARE, MEDICAID | END 2019-12-05 23:59 | disposition home or self-care (01) | LOC: WOUND 11:06 | PROVIDERS: ATTEND Internal Medicine | DX: E11.621 Type 2 diabetes mellitus with foot ulcer (principal); L97.512 Non-pressure chronic ulcer of other part of right foot with fat layer exposed; E11.622 Type 2 diabetes mellitus with other skin ulcer; L97.821 Non-pressure chronic ulcer of other part of left lower leg limited to breakdown of skin; E11.69 Type 2 diabetes mellitus with other specified complication; M86.171 Other acute osteomyelitis, right ankle and foot; M86.671 Other chronic osteomyelitis, right ankle and foot; I87.2 Venous insufficiency (chronic) (peripheral); E11.42 Type 2 diabetes mellitus with diabetic polyneuropathy; L84 Corns and callosities; M54.9 Dorsalgia, unspecified; I11.0 Hypertensive heart disease with heart failure; I50.9 Heart failure, unspecified; G89.29 Other chronic pain; G47.33 Obstructive sleep apnea (adult) (pediatric); F17.210 Nicotine dependence, cigarettes, uncomplicated; E66.01 Morbid (severe) obesity due to excess calories; Z68.41 Body mass index [BMI] 40.0-44.9, adult; Z79.4 Long term (current) use of insulin; Z79.01 Long term (current) use of anticoagulants; Z85.89 Personal history of malignant neoplasm of other organs and systems; Z86.19 Personal history of other infectious and parasitic diseases; Z86.718 Personal history of other venous thrombosis and embolism; Z89.421 Acquired absence of other right toe(s); Z79.84 Long term (current) use of oral hypoglycemic drugs; Z88.2 Allergy status to sulfonamides; Z88.8 Allergy status to other drugs, medicaments and biological substances; Z96.652 Presence of left artificial knee joint | CPT/HCPCS: 97597 ==

== ENCOUNTER 2019-12-12 12:53 | Outpatient (CLI) | payer MEDICARE, MEDICAID | END 2019-12-12 23:59 | disposition home or self-care (01) | LOC: WOUND 12:53 | PROVIDERS: ATTEND Internal Medicine | DX: E11.621 Type 2 diabetes mellitus with foot ulcer (principal); L97.512 Non-pressure chronic ulcer of other part of right foot with fat layer exposed; E11.622 Type 2 diabetes mellitus with other skin ulcer; L97.828 Non-pressure chronic ulcer of other part of left lower leg with other specified severity; E11.69 Type 2 diabetes mellitus with other specified complication; M86.171 Other acute osteomyelitis, right ankle and foot; M86.671 Other chronic osteomyelitis, right ankle and foot; I87.2 Venous insufficiency (chronic) (peripheral); E11.42 Type 2 diabetes mellitus with diabetic polyneuropathy; L84 Corns and callosities; M54.9 Dorsalgia, unspecified; I11.0 Hypertensive heart disease with heart failure; I50.9 Heart failure, unspecified; G89.29 Other chronic pain; G47.33 Obstructive sleep apnea (adult) (pediatric); F17.210 Nicotine dependence, cigarettes, uncomplicated; E66.01 Morbid (severe) obesity due to excess calories; Z68.41 Body mass index [BMI] 40.0-44.9, adult; Z79.4 Long term (current) use of insulin; Z79.01 Long term (current) use of anticoagulants; Z85.89 Personal history of malignant neoplasm of other organs and systems; Z86.19 Personal history of other infectious and parasitic diseases; Z86.718 Personal history of other venous thrombosis and embolism; Z89.421 Acquired absence of other right toe(s); Z79.84 Long term (current) use of oral hypoglycemic drugs; Z88.2 Allergy status to sulfonamides; Z88.8 Allergy status to other drugs, medicaments and biological substances; Z96.652 Presence of left artificial knee joint | CPT/HCPCS: 97597 ==

== ENCOUNTER → 2019-12-26 | Outpatient (CLI) | payer MEDICARE, MEDICAID | END | disposition home or self-care (01) | LOC: WOUND 13:05 | PROVIDERS: ATTEND Internal Medicine | DX: E11.621 Type 2 diabetes mellitus with foot ulcer (principal); L97.512 Non-pressure chronic ulcer of other part of right foot with fat layer exposed; E11.69 Type 2 diabetes mellitus with other specified complication; M86.171 Other acute osteomyelitis, right ankle and foot; M86.671 Other chronic osteomyelitis, right ankle and foot; I87.2 Venous insufficiency (chronic) (peripheral); E11.42 Type 2 diabetes mellitus with diabetic polyneuropathy; L84 Corns and callosities; M54.9 Dorsalgia, unspecified; I11.0 Hypertensive heart disease with heart failure; I50.9 Heart failure, unspecified; G89.29 Other chronic pain; G47.33 Obstructive sleep apnea (adult) (pediatric); F17.210 Nicotine dependence, cigarettes, uncomplicated; K70.30 Alcoholic cirrhosis of liver without ascites; F11.20 Opioid dependence, uncomplicated; E66.01 Morbid (severe) obesity due to excess calories; E44.0 Moderate protein-calorie malnutrition; Z68.41 Body mass index [BMI] 40.0-44.9, adult; Z79.4 Long term (current) use of insulin; Z79.01 Long term (current) use of anticoagulants; Z85.89 Personal history of malignant neoplasm of other organs and systems; Z86.19 Personal history of other infectious and parasitic diseases; Z86.718 Personal history of other venous thrombosis and embolism; Z89.421 Acquired absence of other right toe(s); Z88.2 Allergy status to sulfonamides; Z88.8 Allergy status to other drugs, medicaments and biological substances; Z96.652 Presence of left artificial knee joint | CPT/HCPCS: 97597 ==

== ENCOUNTER → 2020-01-02 | Outpatient (CLI) | payer MEDICARE, MEDICAID | END | disposition home or self-care (01) | LOC: WOUND 09:11 | PROVIDERS: ATTEND Internal Medicine | DX: E11.621 Type 2 diabetes mellitus with foot ulcer (principal); L97.512 Non-pressure chronic ulcer of other part of right foot with fat layer exposed; E11.69 Type 2 diabetes mellitus with other specified complication; M86.171 Other acute osteomyelitis, right ankle and foot; M86.671 Other chronic osteomyelitis, right ankle and foot; I87.2 Venous insufficiency (chronic) (peripheral); E11.42 Type 2 diabetes mellitus with diabetic polyneuropathy; L84 Corns and callosities; M54.9 Dorsalgia, unspecified; I11.0 Hypertensive heart disease with heart failure; I50.9 Heart failure, unspecified; G89.29 Other chronic pain; G47.33 Obstructive sleep apnea (adult) (pediatric); F17.210 Nicotine dependence, cigarettes, uncomplicated; K70.30 Alcoholic cirrhosis of liver without ascites; F11.20 Opioid dependence, uncomplicated; E66.01 Morbid (severe) obesity due to excess calories; E44.0 Moderate protein-calorie malnutrition; Z68.41 Body mass index [BMI] 40.0-44.9, adult; Z79.4 Long term (current) use of insulin; Z79.01 Long term (current) use of anticoagulants; Z85.89 Personal history of malignant neoplasm of other organs and systems; Z86.19 Personal history of other infectious and parasitic diseases; Z86.718 Personal history of other venous thrombosis and embolism; Z89.421 Acquired absence of other right toe(s); Z88.2 Allergy status to sulfonamides; Z88.8 Allergy status to other drugs, medicaments and biological substances; Z96.652 Presence of left artificial knee joint; Z79.899 Other long term (current) drug therapy; Z91.19 Patient's noncompliance with other medical treatment and regimen | CPT/HCPCS: 97597 ==

== ENCOUNTER → 2020-01-09 | Outpatient (CLI) | payer MEDICARE, MEDICAID | END | disposition home or self-care (01) | LOC: WOUND 10:30 | PROVIDERS: ATTEND Internal Medicine | DX: E11.621 Type 2 diabetes mellitus with foot ulcer (principal); L97.512 Non-pressure chronic ulcer of other part of right foot with fat layer exposed; E11.622 Type 2 diabetes mellitus with other skin ulcer; L97.821 Non-pressure chronic ulcer of other part of left lower leg limited to breakdown of skin; E11.69 Type 2 diabetes mellitus with other specified complication; M86.171 Other acute osteomyelitis, right ankle and foot; M86.671 Other chronic osteomyelitis, right ankle and foot; I87.2 Venous insufficiency (chronic) (peripheral); E11.42 Type 2 diabetes mellitus with diabetic polyneuropathy; L84 Corns and callosities; M54.9 Dorsalgia, unspecified; I11.0 Hypertensive heart disease with heart failure; I50.9 Heart failure, unspecified; G89.29 Other chronic pain; G47.33 Obstructive sleep apnea (adult) (pediatric); F17.210 Nicotine dependence, cigarettes, uncomplicated; K70.30 Alcoholic cirrhosis of liver without ascites; F11.20 Opioid dependence, uncomplicated; E66.01 Morbid (severe) obesity due to excess calories; E44.0 Moderate protein-calorie malnutrition; Z68.41 Body mass index [BMI] 40.0-44.9, adult; Z79.4 Long term (current) use of insulin; Z79.01 Long term (current) use of anticoagulants; Z85.89 Personal history of malignant neoplasm of other organs and systems; Z86.19 Personal history of other infectious and parasitic diseases; Z86.718 Personal history of other venous thrombosis and embolism; Z89.421 Acquired absence of other right toe(s); Z88.2 Allergy status to sulfonamides; Z88.8 Allergy status to other drugs, medicaments and biological substances; Z96.652 Presence of left artificial knee joint; Z79.899 Other long term (current) drug therapy; Z91.19 Patient's noncompliance with other medical treatment and regimen | CPT/HCPCS: 97597; 97598 ==

== ENCOUNTER → 2020-01-16 | Outpatient (CLI) | payer MEDICARE, MEDICAID | END | disposition home or self-care (01) | LOC: WOUND 10:55 | PROVIDERS: ATTEND Internal Medicine | DX: E11.621 Type 2 diabetes mellitus with foot ulcer (principal); L97.512 Non-pressure chronic ulcer of other part of right foot with fat layer exposed; E11.622 Type 2 diabetes mellitus with other skin ulcer; L97.821 Non-pressure chronic ulcer of other part of left lower leg limited to breakdown of skin; E11.69 Type 2 diabetes mellitus with other specified complication; M86.171 Other acute osteomyelitis, right ankle and foot; M86.671 Other chronic osteomyelitis, right ankle and foot; I87.2 Venous insufficiency (chronic) (peripheral); E11.42 Type 2 diabetes mellitus with diabetic polyneuropathy; L84 Corns and callosities; M54.9 Dorsalgia, unspecified; I11.0 Hypertensive heart disease with heart failure; I50.9 Heart failure, unspecified; G89.29 Other chronic pain; G47.33 Obstructive sleep apnea (adult) (pediatric); F17.210 Nicotine dependence, cigarettes, uncomplicated; K70.30 Alcoholic cirrhosis of liver without ascites; F11.20 Opioid dependence, uncomplicated; E66.01 Morbid (severe) obesity due to excess calories; E44.0 Moderate protein-calorie malnutrition; Z68.41 Body mass index [BMI] 40.0-44.9, adult; Z79.4 Long term (current) use of insulin; Z79.01 Long term (current) use of anticoagulants; Z85.89 Personal history of malignant neoplasm of other organs and systems; Z86.19 Personal history of other infectious and parasitic diseases; Z86.718 Personal history of other venous thrombosis and embolism; Z89.421 Acquired absence of other right toe(s); Z88.2 Allergy status to sulfonamides; Z88.8 Allergy status to other drugs, medicaments and biological substances; Z96.652 Presence of left artificial knee joint; Z79.899 Other long term (current) drug therapy; Z91.19 Patient's noncompliance with other medical treatment and regimen | CPT/HCPCS: 97597; 97598 ==

== ENCOUNTER → 2020-01-22 | Outpatient (CLI) | payer MEDICARE ==
[~2020-01-22] MED LIST changes: +GADOTERATE 10 MMOL/20 ML VIAL ONE
== END | disposition home or self-care (01) ==
LOC: RAD 09:12
PROVIDERS: ATTEND Internal Medicine Infectious Disease
DX: M19.071 Primary osteoarthritis, right ankle and foot (principal); M86.171 Other acute osteomyelitis, right ankle and foot
CPT/HCPCS: 73720; A9575

== ENCOUNTER → 2020-01-23 | Outpatient (CLI) | payer MEDICAID, MEDICARE ==
[~2020-01-23] MED LIST changes: -GADOTERATE 10 MMOL/20 ML VIAL ONE
== END | disposition home or self-care (01) ==
LOC: WOUND 11:06
PROVIDERS: ATTEND Internal Medicine
DX: E11.621 Type 2 diabetes mellitus with foot ulcer (principal); L97.512 Non-pressure chronic ulcer of other part of right foot with fat layer exposed; I87.2 Venous insufficiency (chronic) (peripheral); E11.69 Type 2 diabetes mellitus with other specified complication; M86.671 Other chronic osteomyelitis, right ankle and foot; E11.42 Type 2 diabetes mellitus with diabetic polyneuropathy; L84 Corns and callosities; I11.0 Hypertensive heart disease with heart failure; I50.9 Heart failure, unspecified; G89.29 Other chronic pain; M19.071 Primary osteoarthritis, right ankle and foot; E66.01 Morbid (severe) obesity due to excess calories; G47.30 Sleep apnea, unspecified; F17.210 Nicotine dependence, cigarettes, uncomplicated; Z68.41 Body mass index [BMI] 40.0-44.9, adult; Z79.4 Long term (current) use of insulin; Z86.19 Personal history of other infectious and parasitic diseases; Z86.718 Personal history of other venous thrombosis and embolism; Z85.89 Personal history of malignant neoplasm of other organs and systems; Z89.421 Acquired absence of other right toe(s); Z96.652 Presence of left artificial knee joint
CPT/HCPCS: 97597; 97598

== ENCOUNTER → 2020-01-30 | Outpatient (CLI) | payer MEDICARE | END | disposition home or self-care (01) | LOC: WOUND 09:02 | PROVIDERS: ATTEND Internal Medicine | DX: E11.621 Type 2 diabetes mellitus with foot ulcer (principal); L97.512 Non-pressure chronic ulcer of other part of right foot with fat layer exposed; I87.2 Venous insufficiency (chronic) (peripheral); E11.69 Type 2 diabetes mellitus with other specified complication; M86.671 Other chronic osteomyelitis, right ankle and foot; M86.171 Other acute osteomyelitis, right ankle and foot; E11.42 Type 2 diabetes mellitus with diabetic polyneuropathy; L84 Corns and callosities; I11.0 Hypertensive heart disease with heart failure; I50.9 Heart failure, unspecified; G89.29 Other chronic pain; M19.071 Primary osteoarthritis, right ankle and foot; E66.01 Morbid (severe) obesity due to excess calories; G47.30 Sleep apnea, unspecified; E44.0 Moderate protein-calorie malnutrition; G47.33 Obstructive sleep apnea (adult) (pediatric); F11.20 Opioid dependence, uncomplicated; Z68.41 Body mass index [BMI] 40.0-44.9, adult; Z79.4 Long term (current) use of insulin; Z86.19 Personal history of other infectious and parasitic diseases; Z86.718 Personal history of other venous thrombosis and embolism; Z85.89 Personal history of malignant neoplasm of other organs and systems; Z89.421 Acquired absence of other right toe(s); Z96.652 Presence of left artificial knee joint; Z91.19 Patient's noncompliance with other medical treatment and regimen; Z88.2 Allergy status to sulfonamides; Z88.8 Allergy status to other drugs, medicaments and biological substances; Z79.01 Long term (current) use of anticoagulants; Z79.899 Other long term (current) drug therapy; Z87.891 Personal history of nicotine dependence | CPT/HCPCS: 97597 ==

== ENCOUNTER → 2020-02-06 | Outpatient (CLI) | payer MEDICARE | END | disposition home or self-care (01) | LOC: WOUND 09:06 | PROVIDERS: ATTEND Internal Medicine | DX: E11.621 Type 2 diabetes mellitus with foot ulcer (principal); L97.515 Non-pressure chronic ulcer of other part of right foot with muscle involvement without evidence of necrosis; I87.2 Venous insufficiency (chronic) (peripheral); E11.69 Type 2 diabetes mellitus with other specified complication; M86.671 Other chronic osteomyelitis, right ankle and foot; M86.171 Other acute osteomyelitis, right ankle and foot; E11.42 Type 2 diabetes mellitus with diabetic polyneuropathy; L84 Corns and callosities; I11.0 Hypertensive heart disease with heart failure; I50.9 Heart failure, unspecified; G89.29 Other chronic pain; M19.071 Primary osteoarthritis, right ankle and foot; E66.01 Morbid (severe) obesity due to excess calories; G47.30 Sleep apnea, unspecified; E44.0 Moderate protein-calorie malnutrition; G47.33 Obstructive sleep apnea (adult) (pediatric); F11.20 Opioid dependence, uncomplicated; Z68.41 Body mass index [BMI] 40.0-44.9, adult; Z79.4 Long term (current) use of insulin; Z86.19 Personal history of other infectious and parasitic diseases; Z86.718 Personal history of other venous thrombosis and embolism; Z85.89 Personal history of malignant neoplasm of other organs and systems; Z89.421 Acquired absence of other right toe(s); Z96.652 Presence of left artificial knee joint; Z91.19 Patient's noncompliance with other medical treatment and regimen; Z88.2 Allergy status to sulfonamides; Z88.8 Allergy status to other drugs, medicaments and biological substances; Z79.01 Long term (current) use of anticoagulants; Z79.899 Other long term (current) drug therapy; Z87.891 Personal history of nicotine dependence | CPT/HCPCS: 97597 ==

== ENCOUNTER → 2020-02-13 | Outpatient (CLI) | payer MEDICARE | END | disposition home or self-care (01) | LOC: WOUND 09:20 | PROVIDERS: ATTEND Internal Medicine | DX: E11.621 Type 2 diabetes mellitus with foot ulcer (principal); L97.512 Non-pressure chronic ulcer of other part of right foot with fat layer exposed; S81.812A Laceration without foreign body, left lower leg, initial encounter; I87.2 Venous insufficiency (chronic) (peripheral); E11.69 Type 2 diabetes mellitus with other specified complication; M86.171 Other acute osteomyelitis, right ankle and foot; M86.671 Other chronic osteomyelitis, right ankle and foot; E11.42 Type 2 diabetes mellitus with diabetic polyneuropathy; L84 Corns and callosities; I11.0 Hypertensive heart disease with heart failure; I50.9 Heart failure, unspecified; G89.29 Other chronic pain; M19.071 Primary osteoarthritis, right ankle and foot; E66.01 Morbid (severe) obesity due to excess calories; G47.30 Sleep apnea, unspecified; K70.30 Alcoholic cirrhosis of liver without ascites; E44.0 Moderate protein-calorie malnutrition; G47.33 Obstructive sleep apnea (adult) (pediatric); F11.20 Opioid dependence, uncomplicated; Z68.41 Body mass index [BMI] 40.0-44.9, adult; Z86.19 Personal history of other infectious and parasitic diseases; Z86.718 Personal history of other venous thrombosis and embolism; Z85.89 Personal history of malignant neoplasm of other organs and systems; Z89.421 Acquired absence of other right toe(s); Z96.652 Presence of left artificial knee joint; Z91.19 Patient's noncompliance with other medical treatment and regimen; Z88.2 Allergy status to sulfonamides; Z88.8 Allergy status to other drugs, medicaments and biological substances; Z79.4 Long term (current) use of insulin; Z79.01 Long term (current) use of anticoagulants; Z79.899 Other long term (current) drug therapy; Z87.891 Personal history of nicotine dependence; X58.XXXA Exposure to other specified factors, initial encounter; Y93.89 Activity, other specified; Y92.89 Other specified places as the place of occurrence of the external cause; Y99.8 Other external cause status | CPT/HCPCS: 97597; 97598 ==

== ENCOUNTER → 2020-02-20 | Outpatient (CLI) | payer MEDICARE | END | disposition home or self-care (01) | LOC: WOUND 09:40 | PROVIDERS: ATTEND Internal Medicine | DX: E11.621 Type 2 diabetes mellitus with foot ulcer (principal); L97.512 Non-pressure chronic ulcer of other part of right foot with fat layer exposed; S81.812D Laceration without foreign body, left lower leg, subsequent encounter; E11.69 Type 2 diabetes mellitus with other specified complication; M86.171 Other acute osteomyelitis, right ankle and foot; I87.2 Venous insufficiency (chronic) (peripheral); E11.42 Type 2 diabetes mellitus with diabetic polyneuropathy; L84 Corns and callosities; G89.29 Other chronic pain; M54.9 Dorsalgia, unspecified; I11.0 Hypertensive heart disease with heart failure; I50.9 Heart failure, unspecified; E66.01 Morbid (severe) obesity due to excess calories; M19.071 Primary osteoarthritis, right ankle and foot; G47.33 Obstructive sleep apnea (adult) (pediatric); F17.290 Nicotine dependence, other tobacco product, uncomplicated; Z68.41 Body mass index [BMI] 40.0-44.9, adult; Z91.19 Patient's noncompliance with other medical treatment and regimen; Z86.718 Personal history of other venous thrombosis and embolism; Z79.4 Long term (current) use of insulin; Z89.421 Acquired absence of other right toe(s); Z86.19 Personal history of other infectious and parasitic diseases; Z85.89 Personal history of malignant neoplasm of other organs and systems; Z96.652 Presence of left artificial knee joint; X58.XXXD Exposure to other specified factors, subsequent encounter | CPT/HCPCS: 97597 ==

== ENCOUNTER → 2020-02-27 | Outpatient (CLI) | payer MEDICARE | END | disposition home or self-care (01) | LOC: WOUND 09:37 | PROVIDERS: ATTEND Internal Medicine | DX: E11.621 Type 2 diabetes mellitus with foot ulcer (principal); L97.512 Non-pressure chronic ulcer of other part of right foot with fat layer exposed; E11.69 Type 2 diabetes mellitus with other specified complication; M86.171 Other acute osteomyelitis, right ankle and foot; M86.671 Other chronic osteomyelitis, right ankle and foot; I87.2 Venous insufficiency (chronic) (peripheral); E11.42 Type 2 diabetes mellitus with diabetic polyneuropathy; L84 Corns and callosities; G89.29 Other chronic pain; M54.9 Dorsalgia, unspecified; I11.0 Hypertensive heart disease with heart failure; I50.9 Heart failure, unspecified; M19.071 Primary osteoarthritis, right ankle and foot; F11.20 Opioid dependence, uncomplicated; K70.30 Alcoholic cirrhosis of liver without ascites; G47.33 Obstructive sleep apnea (adult) (pediatric); E66.01 Morbid (severe) obesity due to excess calories; E44.0 Moderate protein-calorie malnutrition; Z68.41 Body mass index [BMI] 40.0-44.9, adult; Z91.19 Patient's noncompliance with other medical treatment and regimen; Z86.718 Personal history of other venous thrombosis and embolism; Z89.421 Acquired absence of other right toe(s); Z86.19 Personal history of other infectious and parasitic diseases; Z85.89 Personal history of malignant neoplasm of other organs and systems; Z96.652 Presence of left artificial knee joint; Z79.4 Long term (current) use of insulin; Z79.01 Long term (current) use of anticoagulants; Z79.899 Other long term (current) drug therapy; Z87.891 Personal history of nicotine dependence; Z88.2 Allergy status to sulfonamides; Z88.8 Allergy status to other drugs, medicaments and biological substances | CPT/HCPCS: 97597 ==

== ENCOUNTER → 2020-03-05 | Outpatient (CLI) | payer MEDICARE, MEDICAID | END | disposition home or self-care (01) | LOC: WOUND 09:25 | PROVIDERS: ATTEND Internal Medicine | DX: E11.621 Type 2 diabetes mellitus with foot ulcer (principal); L97.512 Non-pressure chronic ulcer of other part of right foot with fat layer exposed; E11.69 Type 2 diabetes mellitus with other specified complication; M86.171 Other acute osteomyelitis, right ankle and foot; M86.671 Other chronic osteomyelitis, right ankle and foot; I87.2 Venous insufficiency (chronic) (peripheral); E11.42 Type 2 diabetes mellitus with diabetic polyneuropathy; L84 Corns and callosities; G89.29 Other chronic pain; M54.9 Dorsalgia, unspecified; I11.0 Hypertensive heart disease with heart failure; I50.9 Heart failure, unspecified; M19.071 Primary osteoarthritis, right ankle and foot; F11.20 Opioid dependence, uncomplicated; K70.30 Alcoholic cirrhosis of liver without ascites; G47.33 Obstructive sleep apnea (adult) (pediatric); E66.01 Morbid (severe) obesity due to excess calories; E44.0 Moderate protein-calorie malnutrition; Z68.41 Body mass index [BMI] 40.0-44.9, adult; Z91.19 Patient's noncompliance with other medical treatment and regimen; Z86.718 Personal history of other venous thrombosis and embolism; Z89.421 Acquired absence of other right toe(s); Z86.19 Personal history of other infectious and parasitic diseases; Z85.89 Personal history of malignant neoplasm of other organs and systems; Z96.652 Presence of left artificial knee joint; Z79.4 Long term (current) use of insulin; Z79.01 Long term (current) use of anticoagulants; Z79.899 Other long term (current) drug therapy; Z87.891 Personal history of nicotine dependence; Z88.2 Allergy status to sulfonamides; Z88.8 Allergy status to other drugs, medicaments and biological substances | CPT/HCPCS: 97597 ==

== ENCOUNTER → 2020-03-19 | Outpatient (CLI) | payer MEDICARE, MEDICAID | END | disposition home or self-care (01) | LOC: WOUND 09:52 | PROVIDERS: ATTEND Internal Medicine | DX: E11.621 Type 2 diabetes mellitus with foot ulcer (principal); L97.512 Non-pressure chronic ulcer of other part of right foot with fat layer exposed; E11.69 Type 2 diabetes mellitus with other specified complication; M86.171 Other acute osteomyelitis, right ankle and foot; M86.671 Other chronic osteomyelitis, right ankle and foot; I87.2 Venous insufficiency (chronic) (peripheral); E11.42 Type 2 diabetes mellitus with diabetic polyneuropathy; L84 Corns and callosities; G89.29 Other chronic pain; M54.9 Dorsalgia, unspecified; I11.0 Hypertensive heart disease with heart failure; I50.9 Heart failure, unspecified; M19.071 Primary osteoarthritis, right ankle and foot; F11.20 Opioid dependence, uncomplicated; K70.30 Alcoholic cirrhosis of liver without ascites; G47.33 Obstructive sleep apnea (adult) (pediatric); E66.01 Morbid (severe) obesity due to excess calories; E44.0 Moderate protein-calorie malnutrition; Z68.41 Body mass index [BMI] 40.0-44.9, adult; Z91.19 Patient's noncompliance with other medical treatment and regimen; Z86.718 Personal history of other venous thrombosis and embolism; Z89.421 Acquired absence of other right toe(s); Z86.19 Personal history of other infectious and parasitic diseases; Z85.89 Personal history of malignant neoplasm of other organs and systems; Z96.652 Presence of left artificial knee joint; Z79.4 Long term (current) use of insulin; Z79.01 Long term (current) use of anticoagulants; Z79.899 Other long term (current) drug therapy; Z87.891 Personal history of nicotine dependence; Z88.2 Allergy status to sulfonamides; Z88.8 Allergy status to other drugs, medicaments and biological substances | CPT/HCPCS: 97597 ==

== ENCOUNTER → 2020-04-02 | Outpatient (CLI) | payer MEDICARE, MEDICAID | END | disposition home or self-care (01) | LOC: WOUND 15:10 | PROVIDERS: ATTEND Internal Medicine | DX: E11.621 Type 2 diabetes mellitus with foot ulcer (principal); L97.512 Non-pressure chronic ulcer of other part of right foot with fat layer exposed; E11.69 Type 2 diabetes mellitus with other specified complication; M86.171 Other acute osteomyelitis, right ankle and foot; M86.671 Other chronic osteomyelitis, right ankle and foot; I87.2 Venous insufficiency (chronic) (peripheral); E11.42 Type 2 diabetes mellitus with diabetic polyneuropathy; L84 Corns and callosities; G89.29 Other chronic pain; M54.9 Dorsalgia, unspecified; I11.0 Hypertensive heart disease with heart failure; I50.9 Heart failure, unspecified; M19.071 Primary osteoarthritis, right ankle and foot; F11.20 Opioid dependence, uncomplicated; K70.30 Alcoholic cirrhosis of liver without ascites; G47.33 Obstructive sleep apnea (adult) (pediatric); G47.30 Sleep apnea, unspecified; E66.01 Morbid (severe) obesity due to excess calories; E44.0 Moderate protein-calorie malnutrition; Z68.41 Body mass index [BMI] 40.0-44.9, adult; Z91.19 Patient's noncompliance with other medical treatment and regimen; Z86.718 Personal history of other venous thrombosis and embolism; Z89.421 Acquired absence of other right toe(s); Z86.19 Personal history of other infectious and parasitic diseases; Z85.89 Personal history of malignant neoplasm of other organs and systems; Z96.652 Presence of left artificial knee joint; Z79.4 Long term (current) use of insulin; Z79.01 Long term (current) use of anticoagulants; Z79.899 Other long term (current) drug therapy; Z87.891 Personal history of nicotine dependence; Z88.2 Allergy status to sulfonamides; Z88.8 Allergy status to other drugs, medicaments and biological substances | CPT/HCPCS: 97597 ==

== ENCOUNTER → 2020-04-09 | Outpatient (CLI) | payer MEDICARE, MEDICAID | END | disposition home or self-care (01) | LOC: WOUND 14:06 | PROVIDERS: ATTEND Internal Medicine | DX: E11.621 Type 2 diabetes mellitus with foot ulcer (principal); L97.512 Non-pressure chronic ulcer of other part of right foot with fat layer exposed; E11.69 Type 2 diabetes mellitus with other specified complication; M86.171 Other acute osteomyelitis, right ankle and foot; M86.671 Other chronic osteomyelitis, right ankle and foot; I87.2 Venous insufficiency (chronic) (peripheral); E11.42 Type 2 diabetes mellitus with diabetic polyneuropathy; L84 Corns and callosities; G89.29 Other chronic pain; M54.9 Dorsalgia, unspecified; I11.0 Hypertensive heart disease with heart failure; I50.9 Heart failure, unspecified; M19.071 Primary osteoarthritis, right ankle and foot; F11.20 Opioid dependence, uncomplicated; K70.30 Alcoholic cirrhosis of liver without ascites; G47.33 Obstructive sleep apnea (adult) (pediatric); G47.30 Sleep apnea, unspecified; E66.01 Morbid (severe) obesity due to excess calories; E44.0 Moderate protein-calorie malnutrition; Z68.41 Body mass index [BMI] 40.0-44.9, adult; Z91.19 Patient's noncompliance with other medical treatment and regimen; Z86.718 Personal history of other venous thrombosis and embolism; Z89.421 Acquired absence of other right toe(s); Z86.19 Personal history of other infectious and parasitic diseases; Z85.89 Personal history of malignant neoplasm of other organs and systems; Z96.652 Presence of left artificial knee joint; Z79.4 Long term (current) use of insulin; Z79.01 Long term (current) use of anticoagulants; Z79.899 Other long term (current) drug therapy; Z87.891 Personal history of nicotine dependence; Z88.2 Allergy status to sulfonamides; Z88.8 Allergy status to other drugs, medicaments and biological substances | CPT/HCPCS: 97597 ==

== ENCOUNTER → 2020-04-23 | Outpatient (CLI) | payer MEDICARE, MEDICAID ==
[~2020-04-23] MED LIST changes: -LISI40TA PO; +LISI40TA9 PO
== END | disposition home or self-care (01) ==
LOC: WOUND 09:38
PROVIDERS: ATTEND Internal Medicine
DX: E11.621 Type 2 diabetes mellitus with foot ulcer (principal); L97.512 Non-pressure chronic ulcer of other part of right foot with fat layer exposed; E11.69 Type 2 diabetes mellitus with other specified complication; M86.171 Other acute osteomyelitis, right ankle and foot; M86.671 Other chronic osteomyelitis, right ankle and foot; I87.2 Venous insufficiency (chronic) (peripheral); E11.42 Type 2 diabetes mellitus with diabetic polyneuropathy; L84 Corns and callosities; G89.29 Other chronic pain; M54.9 Dorsalgia, unspecified; I11.0 Hypertensive heart disease with heart failure; I50.9 Heart failure, unspecified; M19.071 Primary osteoarthritis, right ankle and foot; F11.20 Opioid dependence, uncomplicated; K70.30 Alcoholic cirrhosis of liver without ascites; G47.33 Obstructive sleep apnea (adult) (pediatric); E66.01 Morbid (severe) obesity due to excess calories; E44.0 Moderate protein-calorie malnutrition; Z68.41 Body mass index [BMI] 40.0-44.9, adult; Z91.19 Patient's noncompliance with other medical treatment and regimen; Z86.718 Personal history of other venous thrombosis and embolism; Z89.421 Acquired absence of other right toe(s); Z86.19 Personal history of other infectious and parasitic diseases; Z85.89 Personal history of malignant neoplasm of other organs and systems; Z96.652 Presence of left artificial knee joint; Z79.4 Long term (current) use of insulin; Z79.01 Long term (current) use of anticoagulants; Z79.899 Other long term (current) drug therapy; Z87.891 Personal history of nicotine dependence; Z88.2 Allergy status to sulfonamides; Z88.8 Allergy status to other drugs, medicaments and biological substances
CPT/HCPCS: 11042

== ENCOUNTER → 2020-04-30 | Outpatient (CLI) | payer MEDICARE, MEDICAID | END | disposition home or self-care (01) | LOC: WOUND 09:05 | PROVIDERS: ATTEND Internal Medicine | DX: E11.621 Type 2 diabetes mellitus with foot ulcer (principal); L97.512 Non-pressure chronic ulcer of other part of right foot with fat layer exposed; E11.69 Type 2 diabetes mellitus with other specified complication; M86.171 Other acute osteomyelitis, right ankle and foot; M86.671 Other chronic osteomyelitis, right ankle and foot; I87.2 Venous insufficiency (chronic) (peripheral); E11.42 Type 2 diabetes mellitus with diabetic polyneuropathy; L84 Corns and callosities; G89.29 Other chronic pain; M54.9 Dorsalgia, unspecified; I11.0 Hypertensive heart disease with heart failure; I50.9 Heart failure, unspecified; M19.071 Primary osteoarthritis, right ankle and foot; F11.20 Opioid dependence, uncomplicated; K70.30 Alcoholic cirrhosis of liver without ascites; G47.33 Obstructive sleep apnea (adult) (pediatric); E66.01 Morbid (severe) obesity due to excess calories; E44.0 Moderate protein-calorie malnutrition; Z68.41 Body mass index [BMI] 40.0-44.9, adult; Z91.19 Patient's noncompliance with other medical treatment and regimen; Z86.718 Personal history of other venous thrombosis and embolism; Z89.421 Acquired absence of other right toe(s); Z86.19 Personal history of other infectious and parasitic diseases; Z85.89 Personal history of malignant neoplasm of other organs and systems; Z96.652 Presence of left artificial knee joint; Z79.4 Long term (current) use of insulin; Z79.01 Long term (current) use of anticoagulants; Z79.899 Other long term (current) drug therapy; Z87.891 Personal history of nicotine dependence; Z88.2 Allergy status to sulfonamides; Z88.8 Allergy status to other drugs, medicaments and biological substances | CPT/HCPCS: 11042 ==

== ENCOUNTER → 2020-05-07 | Outpatient (CLI) | payer MEDICARE, MEDICAID | END | disposition home or self-care (01) | LOC: WOUND 09:10 | PROVIDERS: ATTEND Internal Medicine | DX: E11.621 Type 2 diabetes mellitus with foot ulcer (principal); L97.512 Non-pressure chronic ulcer of other part of right foot with fat layer exposed; E11.69 Type 2 diabetes mellitus with other specified complication; M86.171 Other acute osteomyelitis, right ankle and foot; M86.671 Other chronic osteomyelitis, right ankle and foot; I87.2 Venous insufficiency (chronic) (peripheral); E11.42 Type 2 diabetes mellitus with diabetic polyneuropathy; L84 Corns and callosities; G89.29 Other chronic pain; M54.9 Dorsalgia, unspecified; I11.0 Hypertensive heart disease with heart failure; I50.9 Heart failure, unspecified; M19.071 Primary osteoarthritis, right ankle and foot; F11.20 Opioid dependence, uncomplicated; K70.30 Alcoholic cirrhosis of liver without ascites; G47.33 Obstructive sleep apnea (adult) (pediatric); E66.01 Morbid (severe) obesity due to excess calories; E44.0 Moderate protein-calorie malnutrition; Z68.41 Body mass index [BMI] 40.0-44.9, adult; Z86.718 Personal history of other venous thrombosis and embolism; Z86.19 Personal history of other infectious and parasitic diseases; Z85.89 Personal history of malignant neoplasm of other organs and systems; Z96.652 Presence of left artificial knee joint; Z79.4 Long term (current) use of insulin; Z79.01 Long term (current) use of anticoagulants; Z79.899 Other long term (current) drug therapy; Z87.891 Personal history of nicotine dependence; Z88.2 Allergy status to sulfonamides; Z88.8 Allergy status to other drugs, medicaments and biological substances; Z89.421 Acquired absence of other right toe(s); Z91.19 Patient's noncompliance with other medical treatment and regimen | CPT/HCPCS: 97597 ==

== ENCOUNTER → 2020-05-14 | Outpatient (CLI) | payer MEDICARE, MEDICAID | END | disposition home or self-care (01) | LOC: WOUND 09:24 | PROVIDERS: ATTEND Internal Medicine | DX: E11.621 Type 2 diabetes mellitus with foot ulcer (principal); L97.512 Non-pressure chronic ulcer of other part of right foot with fat layer exposed; E11.69 Type 2 diabetes mellitus with other specified complication; M86.171 Other acute osteomyelitis, right ankle and foot; M86.671 Other chronic osteomyelitis, right ankle and foot; I87.2 Venous insufficiency (chronic) (peripheral); E11.42 Type 2 diabetes mellitus with diabetic polyneuropathy; L84 Corns and callosities; G89.29 Other chronic pain; M54.9 Dorsalgia, unspecified; I11.0 Hypertensive heart disease with heart failure; I50.9 Heart failure, unspecified; M19.071 Primary osteoarthritis, right ankle and foot; F11.20 Opioid dependence, uncomplicated; K70.30 Alcoholic cirrhosis of liver without ascites; G47.33 Obstructive sleep apnea (adult) (pediatric); E66.01 Morbid (severe) obesity due to excess calories; G47.30 Sleep apnea, unspecified; E44.0 Moderate protein-calorie malnutrition; Z68.41 Body mass index [BMI] 40.0-44.9, adult; Z86.718 Personal history of other venous thrombosis and embolism; Z86.19 Personal history of other infectious and parasitic diseases; Z85.89 Personal history of malignant neoplasm of other organs and systems; Z96.652 Presence of left artificial knee joint; Z79.4 Long term (current) use of insulin; Z79.01 Long term (current) use of anticoagulants; Z79.899 Other long term (current) drug therapy; Z87.891 Personal history of nicotine dependence; Z88.2 Allergy status to sulfonamides; Z88.8 Allergy status to other drugs, medicaments and biological substances; Z89.421 Acquired absence of other right toe(s); Z91.19 Patient's noncompliance with other medical treatment and regimen | CPT/HCPCS: 97597 ==

== ENCOUNTER 2020-06-04 09:35 | Outpatient (CLI) | payer MEDICARE, MEDICAID | END 2020-06-04 23:59 | disposition home or self-care (01) | LOC: WOUND 09:35 | PROVIDERS: ATTEND Internal Medicine | DX: E11.621 Type 2 diabetes mellitus with foot ulcer (principal); L97.512 Non-pressure chronic ulcer of other part of right foot with fat layer exposed; E11.622 Type 2 diabetes mellitus with other skin ulcer; L97.821 Non-pressure chronic ulcer of other part of left lower leg limited to breakdown of skin; E11.69 Type 2 diabetes mellitus with other specified complication; M86.171 Other acute osteomyelitis, right ankle and foot; M86.671 Other chronic osteomyelitis, right ankle and foot; I87.2 Venous insufficiency (chronic) (peripheral); E11.42 Type 2 diabetes mellitus with diabetic polyneuropathy; L84 Corns and callosities; G89.29 Other chronic pain; M54.9 Dorsalgia, unspecified; I11.0 Hypertensive heart disease with heart failure; I50.9 Heart failure, unspecified; M19.071 Primary osteoarthritis, right ankle and foot; F11.20 Opioid dependence, uncomplicated; K70.30 Alcoholic cirrhosis of liver without ascites; G47.33 Obstructive sleep apnea (adult) (pediatric); E66.01 Morbid (severe) obesity due to excess calories; E44.0 Moderate protein-calorie malnutrition; Z68.41 Body mass index [BMI] 40.0-44.9, adult; Z86.718 Personal history of other venous thrombosis and embolism; Z86.19 Personal history of other infectious and parasitic diseases; Z85.89 Personal history of malignant neoplasm of other organs and systems; Z96.652 Presence of left artificial knee joint; Z79.4 Long term (current) use of insulin; Z79.01 Long term (current) use of anticoagulants; Z79.899 Other long term (current) drug therapy; Z87.891 Personal history of nicotine dependence; Z88.2 Allergy status to sulfonamides; Z88.8 Allergy status to other drugs, medicaments and biological substances; Z89.421 Acquired absence of other right toe(s); Z91.19 Patient's noncompliance with other medical treatment and regimen | CPT/HCPCS: 11042; 97597 ==

== ENCOUNTER → 2020-06-11 | Outpatient (CLI) | payer MEDICARE, MEDICAID | END | disposition home or self-care (01) | LOC: WOUND 09:29 | PROVIDERS: ATTEND Internal Medicine | DX: E11.621 Type 2 diabetes mellitus with foot ulcer (principal); L97.512 Non-pressure chronic ulcer of other part of right foot with fat layer exposed; E11.622 Type 2 diabetes mellitus with other skin ulcer; L97.821 Non-pressure chronic ulcer of other part of left lower leg limited to breakdown of skin; E11.69 Type 2 diabetes mellitus with other specified complication; M86.171 Other acute osteomyelitis, right ankle and foot; M86.671 Other chronic osteomyelitis, right ankle and foot; I87.2 Venous insufficiency (chronic) (peripheral); E11.42 Type 2 diabetes mellitus with diabetic polyneuropathy; L84 Corns and callosities; G89.29 Other chronic pain; M54.9 Dorsalgia, unspecified; I11.0 Hypertensive heart disease with heart failure; I50.9 Heart failure, unspecified; M19.071 Primary osteoarthritis, right ankle and foot; F11.20 Opioid dependence, uncomplicated; K70.30 Alcoholic cirrhosis of liver without ascites; G47.33 Obstructive sleep apnea (adult) (pediatric); E66.01 Morbid (severe) obesity due to excess calories; E44.0 Moderate protein-calorie malnutrition; Z68.41 Body mass index [BMI] 40.0-44.9, adult; Z86.718 Personal history of other venous thrombosis and embolism; Z86.19 Personal history of other infectious and parasitic diseases; Z85.89 Personal history of malignant neoplasm of other organs and systems; Z96.652 Presence of left artificial knee joint; Z79.4 Long term (current) use of insulin; Z79.01 Long term (current) use of anticoagulants; Z79.899 Other long term (current) drug therapy; Z87.891 Personal history of nicotine dependence; Z88.2 Allergy status to sulfonamides; Z88.8 Allergy status to other drugs, medicaments and biological substances; Z89.421 Acquired absence of other right toe(s); Z91.19 Patient's noncompliance with other medical treatment and regimen | CPT/HCPCS: 97597 ==

== ENCOUNTER 2020-06-18 10:15 | Outpatient (CLI) | payer MEDICARE, MEDICAID | END 2020-06-18 23:59 | disposition home or self-care (01) | LOC: WOUND 10:15 | PROVIDERS: ATTEND Internal Medicine | DX: E11.621 Type 2 diabetes mellitus with foot ulcer (principal); L97.512 Non-pressure chronic ulcer of other part of right foot with fat layer exposed; E11.622 Type 2 diabetes mellitus with other skin ulcer; L97.821 Non-pressure chronic ulcer of other part of left lower leg limited to breakdown of skin; E11.69 Type 2 diabetes mellitus with other specified complication; M86.171 Other acute osteomyelitis, right ankle and foot; M86.671 Other chronic osteomyelitis, right ankle and foot; I87.2 Venous insufficiency (chronic) (peripheral); E11.42 Type 2 diabetes mellitus with diabetic polyneuropathy; L84 Corns and callosities; G89.29 Other chronic pain; M54.9 Dorsalgia, unspecified; I11.0 Hypertensive heart disease with heart failure; I50.9 Heart failure, unspecified; M19.071 Primary osteoarthritis, right ankle and foot; F11.20 Opioid dependence, uncomplicated; K70.30 Alcoholic cirrhosis of liver without ascites; G47.33 Obstructive sleep apnea (adult) (pediatric); E66.01 Morbid (severe) obesity due to excess calories; E44.0 Moderate protein-calorie malnutrition; Z68.41 Body mass index [BMI] 40.0-44.9, adult; Z86.718 Personal history of other venous thrombosis and embolism; Z86.19 Personal history of other infectious and parasitic diseases; Z85.89 Personal history of malignant neoplasm of other organs and systems; Z96.652 Presence of left artificial knee joint; Z87.891 Personal history of nicotine dependence; Z79.4 Long term (current) use of insulin; Z79.01 Long term (current) use of anticoagulants; Z79.899 Other long term (current) drug therapy; Z89.421 Acquired absence of other right toe(s); Z91.19 Patient's noncompliance with other medical treatment and regimen; Z88.8 Allergy status to other drugs, medicaments and biological substances; Z88.2 Allergy status to sulfonamides | CPT/HCPCS: 97597 ==

== ENCOUNTER → 2020-06-25 | Outpatient (CLI) | payer MEDICARE, MEDICAID | END | disposition home or self-care (01) | LOC: WOUND 11:02 | PROVIDERS: ATTEND Internal Medicine | DX: E11.621 Type 2 diabetes mellitus with foot ulcer (principal); L97.512 Non-pressure chronic ulcer of other part of right foot with fat layer exposed; E11.622 Type 2 diabetes mellitus with other skin ulcer; L97.821 Non-pressure chronic ulcer of other part of left lower leg limited to breakdown of skin; E11.69 Type 2 diabetes mellitus with other specified complication; M86.171 Other acute osteomyelitis, right ankle and foot; M86.671 Other chronic osteomyelitis, right ankle and foot; I87.2 Venous insufficiency (chronic) (peripheral); E11.42 Type 2 diabetes mellitus with diabetic polyneuropathy; L84 Corns and callosities; G89.29 Other chronic pain; M54.9 Dorsalgia, unspecified; I11.0 Hypertensive heart disease with heart failure; I50.9 Heart failure, unspecified; M19.071 Primary osteoarthritis, right ankle and foot; F11.20 Opioid dependence, uncomplicated; K70.30 Alcoholic cirrhosis of liver without ascites; G47.33 Obstructive sleep apnea (adult) (pediatric); E66.01 Morbid (severe) obesity due to excess calories; E44.0 Moderate protein-calorie malnutrition; Z68.41 Body mass index [BMI] 40.0-44.9, adult; Z86.718 Personal history of other venous thrombosis and embolism; Z86.19 Personal history of other infectious and parasitic diseases; Z85.89 Personal history of malignant neoplasm of other organs and systems; Z96.652 Presence of left artificial knee joint; Z87.891 Personal history of nicotine dependence; Z79.4 Long term (current) use of insulin; Z79.01 Long term (current) use of anticoagulants; Z79.899 Other long term (current) drug therapy; Z89.421 Acquired absence of other right toe(s); Z91.19 Patient's noncompliance with other medical treatment and regimen; Z88.8 Allergy status to other drugs, medicaments and biological substances; Z88.2 Allergy status to sulfonamides | CPT/HCPCS: 97597 ==

== ENCOUNTER → 2020-07-11 | Outpatient (CLI) | payer MEDICARE, MEDICAID | END | disposition home or self-care (01) | LOC: WOUND 09:34 | PROVIDERS: ATTEND Internal Medicine | DX: E11.621 Type 2 diabetes mellitus with foot ulcer (principal); L97.512 Non-pressure chronic ulcer of other part of right foot with fat layer exposed; E11.622 Type 2 diabetes mellitus with other skin ulcer; L97.821 Non-pressure chronic ulcer of other part of left lower leg limited to breakdown of skin; E11.69 Type 2 diabetes mellitus with other specified complication; M86.171 Other acute osteomyelitis, right ankle and foot; M86.671 Other chronic osteomyelitis, right ankle and foot; I87.2 Venous insufficiency (chronic) (peripheral); E11.42 Type 2 diabetes mellitus with diabetic polyneuropathy; L84 Corns and callosities; G89.29 Other chronic pain; M54.9 Dorsalgia, unspecified; I11.0 Hypertensive heart disease with heart failure; I50.9 Heart failure, unspecified; M19.071 Primary osteoarthritis, right ankle and foot; F11.20 Opioid dependence, uncomplicated; K70.30 Alcoholic cirrhosis of liver without ascites; G47.33 Obstructive sleep apnea (adult) (pediatric); E66.01 Morbid (severe) obesity due to excess calories; E44.0 Moderate protein-calorie malnutrition; Z68.41 Body mass index [BMI] 40.0-44.9, adult; Z86.718 Personal history of other venous thrombosis and embolism; Z86.19 Personal history of other infectious and parasitic diseases; Z85.89 Personal history of malignant neoplasm of other organs and systems; Z96.652 Presence of left artificial knee joint; Z87.891 Personal history of nicotine dependence; Z79.4 Long term (current) use of insulin; Z79.01 Long term (current) use of anticoagulants; Z79.899 Other long term (current) drug therapy; Z89.421 Acquired absence of other right toe(s); Z91.19 Patient's noncompliance with other medical treatment and regimen; Z88.8 Allergy status to other drugs, medicaments and biological substances; Z88.2 Allergy status to sulfonamides | CPT/HCPCS: 11042 ==

== ENCOUNTER 2020-07-16 10:32 | Outpatient (CLI) | payer MEDICARE, MEDICAID ==
[~2020-07-16 10:32] MED LIST changes: +SULF-23 PO; -SULF1TAB24 PO
== END 2020-07-16 23:59 | disposition home or self-care (01) ==
LOC: WOUND 10:32
PROVIDERS: ATTEND Internal Medicine
DX: E11.621 Type 2 diabetes mellitus with foot ulcer (principal); L97.512 Non-pressure chronic ulcer of other part of right foot with fat layer exposed; E11.622 Type 2 diabetes mellitus with other skin ulcer; L97.821 Non-pressure chronic ulcer of other part of left lower leg limited to breakdown of skin; E11.69 Type 2 diabetes mellitus with other specified complication; M86.171 Other acute osteomyelitis, right ankle and foot; M86.671 Other chronic osteomyelitis, right ankle and foot; I87.2 Venous insufficiency (chronic) (peripheral); E11.42 Type 2 diabetes mellitus with diabetic polyneuropathy; L84 Corns and callosities; G89.29 Other chronic pain; M54.9 Dorsalgia, unspecified; I11.0 Hypertensive heart disease with heart failure; I50.9 Heart failure, unspecified; M19.071 Primary osteoarthritis, right ankle and foot; F11.20 Opioid dependence, uncomplicated; K70.30 Alcoholic cirrhosis of liver without ascites; G47.33 Obstructive sleep apnea (adult) (pediatric); E66.01 Morbid (severe) obesity due to excess calories; E44.0 Moderate protein-calorie malnutrition; Z68.41 Body mass index [BMI] 40.0-44.9, adult; Z86.718 Personal history of other venous thrombosis and embolism; Z86.19 Personal history of other infectious and parasitic diseases; Z85.89 Personal history of malignant neoplasm of other organs and systems; Z87.891 Personal history of nicotine dependence; Z79.4 Long term (current) use of insulin; Z79.01 Long term (current) use of anticoagulants; Z79.899 Other long term (current) drug therapy; Z89.421 Acquired absence of other right toe(s); Z91.19 Patient's noncompliance with other medical treatment and regimen; Z88.8 Allergy status to other drugs, medicaments and biological substances; Z88.2 Allergy status to sulfonamides; Z96.652 Presence of left artificial knee joint
CPT/HCPCS: 97597

== ENCOUNTER 2020-07-23 11:03 | Outpatient (CLI) | payer MEDICARE, MEDICAID | END 2020-07-23 23:59 | disposition home or self-care (01) | LOC: WOUND 11:03 | PROVIDERS: ATTEND Internal Medicine | DX: E11.621 Type 2 diabetes mellitus with foot ulcer (principal); L97.512 Non-pressure chronic ulcer of other part of right foot with fat layer exposed; E11.622 Type 2 diabetes mellitus with other skin ulcer; L97.821 Non-pressure chronic ulcer of other part of left lower leg limited to breakdown of skin; E11.69 Type 2 diabetes mellitus with other specified complication; M86.171 Other acute osteomyelitis, right ankle and foot; M86.671 Other chronic osteomyelitis, right ankle and foot; I87.2 Venous insufficiency (chronic) (peripheral); E11.42 Type 2 diabetes mellitus with diabetic polyneuropathy; L84 Corns and callosities; G89.29 Other chronic pain; M54.9 Dorsalgia, unspecified; I11.0 Hypertensive heart disease with heart failure; I50.9 Heart failure, unspecified; M19.071 Primary osteoarthritis, right ankle and foot; F11.20 Opioid dependence, uncomplicated; K70.30 Alcoholic cirrhosis of liver without ascites; G47.33 Obstructive sleep apnea (adult) (pediatric); E66.01 Morbid (severe) obesity due to excess calories; E44.0 Moderate protein-calorie malnutrition; Z68.41 Body mass index [BMI] 40.0-44.9, adult; Z86.718 Personal history of other venous thrombosis and embolism; Z86.19 Personal history of other infectious and parasitic diseases; Z85.89 Personal history of malignant neoplasm of other organs and systems; Z87.891 Personal history of nicotine dependence; Z79.4 Long term (current) use of insulin; Z79.01 Long term (current) use of anticoagulants; Z79.899 Other long term (current) drug therapy; Z89.421 Acquired absence of other right toe(s); Z91.19 Patient's noncompliance with other medical treatment and regimen; Z88.8 Allergy status to other drugs, medicaments and biological substances; Z88.2 Allergy status to sulfonamides; Z96.652 Presence of left artificial knee joint | CPT/HCPCS: 97597 ==

== ENCOUNTER 2020-07-30 09:56 | Outpatient (CLI) | payer MEDICARE, MEDICAID | END 2020-07-30 23:59 | disposition home or self-care (01) | LOC: WOUND 09:56 | PROVIDERS: ATTEND Internal Medicine | DX: E11.621 Type 2 diabetes mellitus with foot ulcer (principal); L97.512 Non-pressure chronic ulcer of other part of right foot with fat layer exposed; E11.622 Type 2 diabetes mellitus with other skin ulcer; L97.821 Non-pressure chronic ulcer of other part of left lower leg limited to breakdown of skin; E11.69 Type 2 diabetes mellitus with other specified complication; M86.171 Other acute osteomyelitis, right ankle and foot; M86.671 Other chronic osteomyelitis, right ankle and foot; I87.2 Venous insufficiency (chronic) (peripheral); E11.42 Type 2 diabetes mellitus with diabetic polyneuropathy; L84 Corns and callosities; G89.29 Other chronic pain; M54.9 Dorsalgia, unspecified; I11.0 Hypertensive heart disease with heart failure; I50.9 Heart failure, unspecified; M19.071 Primary osteoarthritis, right ankle and foot; F11.20 Opioid dependence, uncomplicated; K70.30 Alcoholic cirrhosis of liver without ascites; G47.33 Obstructive sleep apnea (adult) (pediatric); E66.01 Morbid (severe) obesity due to excess calories; E44.0 Moderate protein-calorie malnutrition; Z68.41 Body mass index [BMI] 40.0-44.9, adult; Z86.718 Personal history of other venous thrombosis and embolism; Z86.19 Personal history of other infectious and parasitic diseases; Z85.89 Personal history of malignant neoplasm of other organs and systems; Z87.891 Personal history of nicotine dependence; Z79.4 Long term (current) use of insulin; Z79.01 Long term (current) use of anticoagulants; Z79.899 Other long term (current) drug therapy; Z89.421 Acquired absence of other right toe(s); Z91.19 Patient's noncompliance with other medical treatment and regimen; Z88.8 Allergy status to other drugs, medicaments and biological substances; Z88.2 Allergy status to sulfonamides; Z96.652 Presence of left artificial knee joint | CPT/HCPCS: 97597 ==

== ENCOUNTER → 2020-08-06 | Outpatient (CLI) | payer MEDICARE, MEDICAID | END | disposition home or self-care (01) | LOC: WOUND 09:33 | PROVIDERS: ATTEND Internal Medicine | DX: E11.621 Type 2 diabetes mellitus with foot ulcer (principal); L97.512 Non-pressure chronic ulcer of other part of right foot with fat layer exposed; E11.69 Type 2 diabetes mellitus with other specified complication; M86.171 Other acute osteomyelitis, right ankle and foot; M86.671 Other chronic osteomyelitis, right ankle and foot; I87.2 Venous insufficiency (chronic) (peripheral); E11.42 Type 2 diabetes mellitus with diabetic polyneuropathy; L84 Corns and callosities; G89.29 Other chronic pain; M54.9 Dorsalgia, unspecified; I11.0 Hypertensive heart disease with heart failure; I50.9 Heart failure, unspecified; M19.071 Primary osteoarthritis, right ankle and foot; F11.20 Opioid dependence, uncomplicated; K70.30 Alcoholic cirrhosis of liver without ascites; G47.33 Obstructive sleep apnea (adult) (pediatric); E66.01 Morbid (severe) obesity due to excess calories; E44.0 Moderate protein-calorie malnutrition; Z68.41 Body mass index [BMI] 40.0-44.9, adult; Z86.718 Personal history of other venous thrombosis and embolism; Z86.19 Personal history of other infectious and parasitic diseases; Z85.89 Personal history of malignant neoplasm of other organs and systems; Z87.891 Personal history of nicotine dependence; Z79.4 Long term (current) use of insulin; Z79.01 Long term (current) use of anticoagulants; Z79.899 Other long term (current) drug therapy; Z89.421 Acquired absence of other right toe(s); Z91.19 Patient's noncompliance with other medical treatment and regimen; Z88.8 Allergy status to other drugs, medicaments and biological substances; Z88.2 Allergy status to sulfonamides; Z96.652 Presence of left artificial knee joint | CPT/HCPCS: G0463 ==

== ENCOUNTER → 2020-08-27 | Outpatient (CLI) | payer MEDICARE, MEDICAID | END | disposition home or self-care (01) | LOC: WOUND 11:01 | PROVIDERS: ATTEND Internal Medicine | DX: E11.621 Type 2 diabetes mellitus with foot ulcer (principal); L97.518 Non-pressure chronic ulcer of other part of right foot with other specified severity; E11.69 Type 2 diabetes mellitus with other specified complication; M86.171 Other acute osteomyelitis, right ankle and foot; M86.671 Other chronic osteomyelitis, right ankle and foot; I87.2 Venous insufficiency (chronic) (peripheral); E11.42 Type 2 diabetes mellitus with diabetic polyneuropathy; L84 Corns and callosities; G89.29 Other chronic pain; M54.9 Dorsalgia, unspecified; I11.0 Hypertensive heart disease with heart failure; I50.9 Heart failure, unspecified; M19.071 Primary osteoarthritis, right ankle and foot; F11.20 Opioid dependence, uncomplicated; K70.30 Alcoholic cirrhosis of liver without ascites; G47.33 Obstructive sleep apnea (adult) (pediatric); E66.01 Morbid (severe) obesity due to excess calories; E44.0 Moderate protein-calorie malnutrition; Z68.41 Body mass index [BMI] 40.0-44.9, adult; Z86.718 Personal history of other venous thrombosis and embolism; Z86.19 Personal history of other infectious and parasitic diseases; Z85.89 Personal history of malignant neoplasm of other organs and systems; Z87.891 Personal history of nicotine dependence; Z79.4 Long term (current) use of insulin; Z79.01 Long term (current) use of anticoagulants; Z79.899 Other long term (current) drug therapy; Z89.421 Acquired absence of other right toe(s); Z91.19 Patient's noncompliance with other medical treatment and regimen; Z88.8 Allergy status to other drugs, medicaments and biological substances; Z88.2 Allergy status to sulfonamides; Z96.652 Presence of left artificial knee joint | CPT/HCPCS: G0463 ==